=== PATIENT | male | born 1980 | race African-American/Black ===

== ENCOUNTER 2018-03-14 21:10 | Emergency (ER) | payer SELFPAY ==
--- OUTSIDE RECORDS SUMMARY | 2018-03-14 21:12 | XMS REPORT | Summary of Care ---
:1980 Author Name Solange Hidalgo M.A. Address Unavailable Unavailable , Care Team Providers Name Role Phone RITO PRYOR M.D. Unavailable Unavailable Solange Hidalgo M.A. Unavailable Unavailable Unavailable Unavailable Unavailable Functional Status Name Dates Details Functional status health issues are not documented Status: Name Dates Details Cognitive status health issues are not documented Status: Problems Name Dates Details Intracerebral hemorrhage (431, I61.9) Status: Active Essential (primary) hypertension (401.9, I10) Status: Active Diabetes mellitus (250.00, E11.9) Status: Active Medications Name Dates Details Lisinopril 20 MG Oral Tablet TAKE 1 TABLET TWICE DAILY. Quantity: 60 Refills: 1 RITO PRYOR M.D. Start : 28-Oct-2017 Active Carvedilol 25 MG Oral Tablet TAKE 1 TABLET Every twelve hours Quantity: 60 Refills: 1 RITO PRYOR M.D. Start : 28-Oct-2017 Active NovoLIN N ReliOn 100 UNIT/ML Subcutaneous Suspension USE DIRECTED. Refills: 0 Start : 28-Oct-2017 Active 10 ML Vial NIFEdipine ER 30 MG Oral Tablet Extended Release 24 Hour TAKE 1 TABLET DAILY. Quantity: 30 Refills: 1 RITO PRYOR M.D. Start : 08-Nov-2017 Active Nicotine 21 MG/24HR Transdermal Patch 24 Hour APPLY 1 PATCH DAILY DIRECTED. Quantity: 30 Refills: 0 RITO PRYOR M.D. Start : 08-Nov-2017 Active Allergies and Adverse Reactions Name Dates Details No Known Drug Allergies (Allergy) Status: Active Procedures Procedure Dates Details Procedures not documented Immunization Name Dates Details Immunizations not documented Social History Name Dates Details - Status: Name Dates Details Smoker. current status unknown Vital Signs Date Test Result Details No Known Vitals to report Results Date Description Value Details Results not documented Plan of Care Name Dates Details Planned Observations Planned Goals not documented Planned Encounters Appointment; TONY BANUELOS M.D. On: 29-Mar-2018 11:00 Interventions Provided Medication ChangesCarvedilol 25 MG Oral Tablet - RenewLisinopril 20 MG Oral Tablet - RenewNIFEdipine ER 30 MG Oral Tablet Extended Release 24 Hour - Renew Instructions Name Dates Details Instructions not documented Encounters Appointment; TONY BANUELOS M.D. On: 25-Oct-2017 10:00 Encounter Diagnosis: Problem not documented Appointment; CARMELA ROBERTSON M.D. On: 28-Oct-2017 13:45 Encounter Diagnosis: Problem not documented Appointment; DORIS SHORE M.D. On: 08-Nov-2017 10:00 Encounter Diagnosis: Problem not documented Appointment; DORIS SHORE M.D. On: 03-Jan-2018 10:30 Encounter Diagnosis: Problem not documented
[2018-03-14] MEDS ORDERED: PANTOPRAZOLE 40 MG INJ ONE (21:27)
[2018-03-14] MEDS ORDERED: NA CHLORIDE 0.9% 1,000 ML ONE ×2 (21:27→22:51)
[2018-03-14] MEDS ORDERED: ONDANSETRON 4 MG/2 ML VIAL ONE (21:27)
[2018-03-14 21:51] LABS: MCH 27.6 pg (27.0-35.0)
[2018-03-14 21:54] LABS: Absolute Lymphocytes (CBC) 5.4 K/uL (0.7-4.9); Absolute Monocytes 0.9 K/uL (0.1-1.3); Absolute Neutrophil 3.2 K/uL (1.8-8.0); Basophils % 0.4 % (0-1.3); Eosinophils % 1.6 % (0-4.4); Hematocrit 38.6 % (39.6-49.0); Lymphocytes % 55.6 % (15.3-44.8); MCV 81.3 fL (80-100); MPV 7.8 fL (7.6-11.3); RBC Red Blood Cell Count 4.75 M/uL (4.33-5.43)
[2018-03-14 22:02] LABS: Bicarbonate 26 mEq/L (21-31); Glucose Level 201 mg/dL (65-120); Lipase 24 U/L (22-51); Potassium 3.4 mEq/L (3.6-5.0); Sodium Level 139 mEq/L (135-145)
[2018-03-14 22:08] LABS: ALT/SGPT 21 IU/L (10-60); AST/SGOT 21 IU/L (10-42); Albumin 4.3 g/dL (3.2-5.5); Alkaline Phosphatase 49 IU/L (42-121); Amylase Level 66 U/L (28-100); BUN Blood Urea Nitrogen 17 mg/dL (6-20); Bilirubin Direct 0.1 mg/dL (0-0.2); Bilirubin Total 0.5 mg/dL (0.3-1.2); Protein, Total 7.5 g/dL (6.0-8.3)
[2018-03-14] MEDS ORDERED: ASPIRIN 81 MG CHEWABLE TABLET ONE (22:59)
[2018-03-14] MEDS ORDERED: PROMETHAZINE 25 MG/ML VIAL ONE (23:50)
[2018-03-14] MEDS ORDERED: POTASSIUM CL SA 10 MEQ TAB PO ONE (23:50)
[2018-03-14 23:58] LABS: Blood Morphology Comment NOTED (NOT SEEN); Burr Cells 1+; Platelet Estimate ADEQ; Urine White Blood Cell Casts OK
[2018-03-15 00:26] LABS: Urine Blood 1+ (NEG); Urine Glucose 1+ (NEG); Urine Protein 2+ (NEG); Urine Specific Gravity 1.025 (1.005-1.030)
--- NOTE | 2018-03-15 01:02 | EDPHYS ---
Physician Documentation [facility] Name: Corrie Diaz Age: 37 yrs Sex: Male : 1980 Arrival Date: 03/14/2018 Time: 21:12 Bed 18 Private MD: Out, of Town, Town; out of town, doctor ED Physician Brown Page HPI: 03/14 21:25 This 37 yrs old Black Male presents to ER via EMS with complaints of Vomiting. cp 21:25 The patient presents to the emergency department with nausea, that is severe, vomiting, cp that is continuous. Onset: The symptoms/episode began/occurred 2 hour(s) ago. Possible causes: flare up of diabetes. 21:25 Associated signs and symptoms: Pertinent negatives: anorexia, constipation, diarrhea, cp fever, GI bleeding. 21:25 Severity of symptoms: in the emergency department the symptoms are unchanged despite cp home interventions. Historical: - Allergies: 21:16 No Known Allergies; fc - Home Meds: 21:16 lisinopril 20mg - out of medicine daily [Active]; carvedilol oral oral 2 times per day fc [Active]; Nifedipine Oral [Active]; - PMHx: 21:16 Diabetes - NIDDM; Hypertension; CVA; fc - PSHx: 21:16 brain surg; fc - Immunization history:: Last tetanus immunization: unknown. - Social history:: Smoking status: Patient/guardian denies using tobacco. - Ebola Screening: : Patient negative for fever greater than or equal to 101.5 degrees Fahrenheit, and additional compatible Ebola Virus Disease symptoms Patient denies exposure to infectious person Patient denies travel to an Ebola-affected area in the 21 days before illness onset. ROS: 21:30 Constitutional: Positive for poor PO intake, Negative for body aches, chills, fever. cp 21:30 Eyes: Negative for injury, pain, redness, and discharge. cp 21:30 ENT: Negative for drainage from ear(s), ear pain, sore throat, difficulty swallowing, difficulty handling secretions. 21:30 Cardiovascular: Negative for chest pain, edema, palpitations. 21:30 Respiratory: Negative for cough, shortness of breath, wheezing. 21:30 Abdomen/GI: Positive for nausea, vomiting, anorexia, Negative for diarrhea, constipation, dysphagia, black/tarry stool, rectal bleeding. 21:30 Back: Negative for pain at rest, pain with movement. 21:30 : Negative for urinary symptoms, flank pain. 21:30 Skin: Negative for cellulitis, rash. 21:30 Neuro: Negative for altered mental status, dizziness, headache, weakness. 21:30 All other systems are negative. Exam: 21:33 ECG was reviewed by the Attending Physician. cp 21:35 Constitutional: The patient appears alert, awake, non-diaphoretic, non-toxic, well cp developed, well nourished, uncomfortable. 21:35 Head/Face: Normocephalic, atraumatic. cp 21:35 Eyes: Periorbital structures: appear normal, Pupils: equal, round, and reactive to light and accomodation, Extraocular movements: intact throughout, Conjunctiva: normal, no exudate, no injection, Lids and lashes: appear normal, bilaterally. 21:35 ENT: External ear(s): are unremarkable, Ear canal(s): are normal, clear, TM's: bulging, is not appreciated, bilaterally, dullness, bilaterally, erythema, is not appreciated, bilaterally, Nose: is normal, Mouth: Lips: moist, Oral mucosa: moist, Posterior pharynx: is normal, airway is patent, no erythema, no exudate, Voice: is normal. 21:35 Neck: ROM/movement: is normal, is supple, without pain, no range of motions limitations, no meningismus, no nuchal rigidity, Lymph nodes: no appreciated lymphadenopathy. 21:35 Chest/axilla: Inspection: normal, Palpation: is normal, no crepitus, no tenderness. 21:35 Cardiovascular: Rate: normal, Rhythm: regular, Heart sounds: murmur, not appreciated, rub, not appreciated, gallop, not appreciated, Edema: is not appreciated, JVD: is not appreciated. 21:35 Respiratory: the patient does not display signs of respiratory distress, Respirations: normal, no use of accessory muscles, no retractions, no splinting, no tachypnea, labored breathing, is not present, Breath sounds: are clear throughout, no decreased breath sounds, no stridor, no wheezing. 21:35 Abdomen/GI: Inspection: abdomen appears normal, Bowel sounds: active, all quadrants, Palpation: soft, in all quadrants, mild abdominal tenderness, in the epigastric area, rebound tenderness, is not appreciated, voluntary guarding, is not appreciated, involuntary guarding, is not appreciated. 21:35 Back: pain, is absent, ROM is normal. 21:35 Skin: cellulitis, is not appreciated, no rash present. 21:35 Neuro: Orientation: to person, place \T\ time. Mentation: lucid, able to follow commands, Cerebellar function: Romberg testing is negative, normal finger to nose testing, Motor: moves all fours, strength is normal, Sensation: no obvious gross deficits. Vital Signs: 21:06 BP 169 / 81; Pulse 75; Resp 18; Temp 98.5(O); Pulse Ox 100% on R/A; Weight 122.02 kg fc (R); Height 6 ft. 3 in. (190.50 cm) (R); Pain 0/10; 22:31 BP 164 / 90; Pulse 56; Resp 16 S; Pulse Ox 100% on R/A; Pain 0/10; jd3 23:57 BP 167 / 101; Pulse 74; Resp 18 S; Pulse Ox 99% on R/A; Pain 0/10; jd3 03/15 01:02 BP 148 / 99; Pulse 63; Resp 17 S; Pulse Ox 100% on R/A; Pain 0/10; jd3 03/14 21:06 Body Mass Index 33.62 (122.02 kg, 190.50 cm) fc MDM: 03/14 21:13 Patient medically screened. cp 22:00 Differential diagnosis: gastritis, pancreatitis, diverticulitis, viral gastroenteritis, cp gastroenteritis, CVA, hypertensive emergency. 03/15 01:00 Data reviewed: vital signs, nurses notes, lab test result(s), EKG, radiologic studies, cp CT scan, and as a result, I will discharge patient. 01:00 Test interpretation: by ED physician or midlevel provider: ECG. Counseling: I had a cp detailed discussion with the patient and/or guardian regarding: the historical points, exam findings, and any diagnostic results supporting the discharge/admit diagnosis, lab results, radiology results, the need for outpatient follow up, a family practitioner, to return to the emergency department if symptoms worsen or persist or if there are any questions or concerns that arise at home. Response to treatment: the patient's symptoms have markedly improved after treatment, VS noted, blood pressure improved, vomiting resolved. Will discharge to home for continued monitoring. 03/14 21:22 Order name: Amylase, Serum; Complete Time: 22:48 03/14 21:22 Order name: Basic Metabolic Panel; Complete Time: 22:48 03/14 22:04 Interpretation: Normal except: K 3.4; GLUC 201. 03/14 21:22 Order name: CBC with Diff; Complete Time: 00:29 03/14 22:48 Interpretation: Normal except: HGB 13.1; HCT 38.6; ROSARIO% 33.4; LYM% 55.6; LYMA 5.4. 03/14 21:22 Order name: Creatinine for Radiology; Complete Time: 22:04 03/14 21:22 Order name: Hepatic Function; Complete Time: 22:48 03/14 21:22 Order name: Lipase; Complete Time: 22:48 03/14 21:22 Order name: Urine Microscopic Only 03/14 21:22 Order name: Ketone, Serum; Complete Time: 22:48 03/14 21:22 Order name: Troponin I; Complete Time: 22:24 03/14 22:24 Interpretation: TROP < 0.03; Reviewed. 03/14 21:44 Order name: CT Head Brain wo Cont 03/14 21:56 Order name: CBC Smear Scan; Complete Time: 00:29 [facility] 03/14 23:37 Order name: Urine Dipstick--Ancillary (enter results); Complete Time: 00:29 2 03/15 00:29 Interpretation: Normal except: UBLD 1+; UPROT 2+. 03/15 01:12 Order name: Urine Culture [facility] 03/14 21:22 Order name: IV Saline Lock; Complete Time: 21:43 03/14 21:22 Order name: Labs collected and sent; Complete Time: 21:43 03/14 21:22 Order name: Urine Dipstick-Ancillary (obtain specimen); Complete Time: 23:46 03/14 21:22 Order name: EKG; Complete Time: 21:33 03/14 21:22 Order name: EKG - Nurse/Tech; Complete Time: 21:42 03/14 22:56 Order name: PO challenge; Complete Time: 23:05 03/15 00:30 Order name: PO challenge; Complete Time: 00:40 cp EC/18 21:33 Rate is 61 beats/min. Rhythm is regular. UT interval is normal. QRS interval is cp prolonged at 110 msec. QT interval is normal. No ST changes noted. Interpreted by me. Reviewed by me. Administered Medications: 21:42 Drug: Zofran 4 mg Route: IVP; Site: left antecubital; jd3 23:46 Follow up: Response: No adverse reaction jd3 21:42 Drug: ProTONIX 40 mg Route: IVP; Site: left antecubital; jd3 23:46 Follow up: Response: No adverse reaction jd3 21:43 Drug: NS 0.9% 1000 ml Route: IV; Rate: 1 bolus; Site: left antecubital; jd3 23:45 Follow up: Response: No adverse reaction; IV Status: Completed infusion; IV Intake: jd3 1000ml 22:55 Drug: NS 0.9% 1000 ml Route: IV; Rate: 125 ml/hr; Site: left antecubital; jd3 03/15 01:21 Follow up: Response: No adverse reaction; IV Status: Order to discontinue infusion; IV jd3 Intake: 700ml 03/14 23:05 Drug: Aspirin Chewable Tablet 81 mg Route: PO; jd3 23:57 Follow up: Response: No adverse reaction jd3 23:57 Drug: Potassium Chloride 20 mEq Route: PO; jd3 03/15 00:37 Follow up: Response: No adverse reaction jd3 03/14 23:57 Drug: Phenergan 25 mg Route: IVP; Site: left antecubital; jd3 03/15 00:37 Follow up: Response: No adverse reaction jd3 Disposition: 03/15/18 01:01 Discharged to Home. Impression: Nausea and vomiting, Hypertensive heart disease. - Condition is Stable. - Discharge Instructions: Hypertension, Nausea and Vomiting, How to Take Your Blood Pressure, Spbl-ut-Unap, Managing Your High Blood Pressure. - Prescriptions for Protonix 40 mg Oral Tablet, Delayed Release (E.C.) - take 1 tablet by ORAL route once daily for 7 days; 7 tablet. promethazine 25 mg Oral Tablet - take 1 tablet by ORAL route every 6 hours As needed; 20 tablet. - Medication Reconciliation Form, Thank You Letter, Antibiotic Education, Prescription Opioid Use form. Addendum: 03/16/2018 07:59 Co-signature as Attending Physician, Brown Page MD Available for consultation at p s1 all times.. Signatures: Dispatcher [employer] Maryuri Solis RN RN Drew Greenfield PA PA cp Davies, Jonathon, RN RN Brown Constantino MD MD ps1 Corrections: (The following items were deleted from the chart) 03/15 01:21 01:01 03/15/2018 01:01 Discharged to Home. Impression: Nausea and vomiting; jd3 Hypertensive heart disease. Condition is Stable. Forms are Medication Reconciliation Form, Thank You Letter, Antibiotic Education, Prescription Opioid Use. cp
--- NOTE | 2018-03-15 01:02 | ER ---
Nurse's Notes [facility] Name: Corrie Diaz Age: 37 yrs Sex: Male : 1980 Arrival Date: 03/14/2018 Time: 21:12 Bed 18 Private MD: Out, of Town, Town; out of town, doctor Diagnosis: Nausea and vomiting;Hypertensive heart disease Presentation: 03/14 21:06 Presenting complaint: Patient states: that he was sitting down at home and became very fc dizzy. He then started to have nausea, vomiting and high blood pressure. EMS vitals 194/119, heart rate 74. Transition of care: patient was not received from another setting of care. Onset of symptoms was March 14, 2018. Risk Assessment: Do you want to hurt yourself or someone else? Patient reports no desire to harm self or others. Initial Sepsis Screen: Does the patient meet any 2 criteria? No. Patient's initial sepsis screen is negative. Does the patient have a suspected source of infection? No. Patient's initial sepsis screen is negative. Care prior to arrival: Medication(s) given: Phenergan, 12.5 mg, IV initiated. 20 GA, in the left antecubital area, Glucose check: 203. 21:06 Method Of Arrival: EMS: [facility] 21:06 Acuity: KASHIF 3 fc Historical: - Allergies: 21:16 No Known Allergies; fc - Home Meds: 21:16 lisinopril 20mg - out of medicine daily [Active]; carvedilol oral oral 2 times per day fc [Active]; Nifedipine Oral [Active]; - PMHx: 21:16 Diabetes - NIDDM; Hypertension; CVA; fc - PSHx: 21:16 brain surg; fc - Immunization history:: Last tetanus immunization: unknown. - Social history:: Smoking status: Patient/guardian denies using tobacco. - Ebola Screening: : Patient negative for fever greater than or equal to 101.5 degrees Fahrenheit, and additional compatible Ebola Virus Disease symptoms Patient denies exposure to infectious person Patient denies travel to an Ebola-affected area in the 21 days before illness onset. Screenin:15 Abuse screen: Denies threats or abuse. Nutritional screening: No deficits noted. fc Tuberculosis screening: No symptoms or risk factors identified. Fall Risk None identified. Assessment: 21:12 General: Appears uncomfortable, Behavior is cooperative. Pain: Denies pain. Neuro: jd3 Level of Consciousness is awake, alert, obeys commands, Oriented to person, place, time, situation, Appropriate for age Speech is normal, Facial symmetry appears normal, Pupils are PERRLA, Intact Reports dizziness. Cardiovascular: Heart tones S1 S2 present Capillary refill < 3 seconds Patient's skin is warm and dry. Respiratory: Airway is patent Respiratory effort is even, unlabored, Respiratory pattern is regular, symmetrical, Breath sounds are clear bilaterally. GI: Abdomen is round Bowel sounds present X 4 quads. Abd is soft and non tender X 4 quads. Reports nausea, vomiting. : No signs and/or symptoms were reported regarding the genitourinary system. EENT: No signs and/or symptoms were reported regarding the EENT system. Derm: Skin is intact, Skin is dry, Skin is normal, Skin temperature is warm. Musculoskeletal: Circulation, motion, and sensation intact. Range of motion: intact in all extremities. 22:31 Reassessment: Patient appears in no apparent distress at this time. Patient and/or jd3 family updated on plan of care and expected duration. Pain level reassessed. Patient is alert, oriented x 3, equal unlabored respirations, skin warm/dry/pink. 23:58 Reassessment: Patient appears in no apparent distress at this time. Patient and/or jd3 family updated on plan of care and expected duration. Pain level reassessed. Patient is alert, oriented x 3, equal unlabored respirations, skin warm/dry/pink. Patient denies pain at this time. 03/15 01:03 Reassessment: Patient appears in no apparent distress at this time. Patient and/or jd3 family updated on plan of care and expected duration. Pain level reassessed. Patient is alert, oriented x 3, equal unlabored respirations, skin warm/dry/pink. Patient denies pain at this time. Patient states feeling better. 01:12 Reassessment: Patient appears in no apparent distress at this time. Patient and/or jd3 family updated on plan of care and expected duration. Pain level reassessed. Patient is alert, oriented x 3, equal unlabored respirations, skin warm/dry/pink. pt reported understanding of discharge instructions, pt assisted to car by wheelchair. Patient denies pain at this time. Patient states feeling better. Vital Signs: 03/14 21:06 BP 169 / 81; Pulse 75; Resp 18; Temp 98.5(O); Pulse Ox 100% on R/A; Weight 122.02 kg fc (R); Height 6 ft. 3 in. (190.50 cm) (R); Pain 0/10; 22:31 BP 164 / 90; Pulse 56; Resp 16 S; Pulse Ox 100% on R/A; Pain 0/10; jd3 23:57 BP 167 / 101; Pulse 74; Resp 18 S; Pulse Ox 99% on R/A; Pain 0/10; jd3 03/15 01:02 BP 148 / 99; Pulse 63; Resp 17 S; Pulse Ox 100% on R/A; Pain 0/10; jd3 03/14 21:06 Body Mass Index 33.62 (122.02 kg, 190.50 cm) ED Course: 03/14 21:06 Arm band placed on Patient placed in an exam room, on a stretcher. fc 21:12 Patient arrived in ED. am2 21:12 Out, of Town is Private Physician. am2 21:12 out of [facility], doctor is Private Physician. am2 21:[address], DELORES is Primary Nurse. jd3 21:12 Drew Lima PA is PHCP. cp 21:13 Brown Page MD is Attending Physician. cp 21:14 Triage completed. fc 21:15 Patient has correct armband on for positive identification. Bed in low position. Call fc light in reach. Side rails up X2. program aide on. Pulse ox on. NIBP on. 21:15 No provider procedures requiring assistance completed. Maintain EMS IV. Dressing fc intact. Good blood return noted. Site clean \T\ dry. Gauge \T\ site: 20 gauge to left a/c. 21:43 Inserted saline lock: 20 gauge in left antecubital area, using aseptic technique. Blood jd3 collected. 22:16 CT completed. Patient moved to CT via wheelchair. Patient moved back from CT. cw1 22:24 CT Head Brain wo Cont In Process Unspecified. EDMS 03/15 01:12 IV discontinued, intact, bleeding controlled, No redness/swelling at site. Pressure jd3 dressing applied. Administered Medications: 03/14 21:42 Drug: Zofran 4 mg Route: IVP; Site: left antecubital; jd3 23:46 Follow up: Response: No adverse reaction jd3 21:42 Drug: ProTONIX 40 mg Route: IVP; Site: left antecubital; jd3 23:46 Follow up: Response: No adverse reaction jd3 21:43 Drug: NS 0.9% 1000 ml Route: IV; Rate: 1 bolus; Site: left antecubital; jd3 23:45 Follow up: Response: No adverse reaction; IV Status: Completed infusion; IV Intake: jd3 1000ml 22:55 Drug: NS 0.9% 1000 ml Route: IV; Rate: 125 ml/hr; Site: left antecubital; jd3 03/15 01:21 Follow up: Response: No adverse reaction; IV Status: Order to discontinue infusion; IV jd3 Intake: 700ml 03/14 23:05 Drug: Aspirin Chewable Tablet 81 mg Route: PO; jd3 23:57 Follow up: Response: No adverse reaction jd3 23:57 Drug: Potassium Chloride 20 mEq Route: PO; jd3 03/15 00:37 Follow up: Response: No adverse reaction jd3 03/14 23:57 Drug: Phenergan 25 mg Route: IVP; Site: left antecubital; jd3 03/15 00:37 Follow up: Response: No adverse reaction jd3 Intake: 03/14 23:45 IV: 1000ml; Total: 1000ml. jd3 03/15 01:21 IV: 700ml; Total: 1700ml. jd3 Outcome: 01:01 Discharge ordered by . cp 01:12 Discharged to home ambulatory, with family. jd3 01:12 Condition: stable 01:12 Discharge instructions given to patient, family, Instructed on discharge instructions, follow up and referral plans. medication usage, Demonstrated understanding of instructions, follow-up care, medications, Prescriptions given X 2. 01:21 Patient left the ED. jd3 Signatures: Dispatcher [employer] EDMS Maryuri Laird RN RN Randee Pathak cw1 Drew Lima PA PA cp Moreno, Amanda am2 Davies, Jonathon, RN RN jd3 Corrections: (The following items were deleted from the chart) 01:20 01:12 Reassessment: Patient appears in no apparent distress at this time. Patient jd3 and/or family updated on plan of care and expected duration. Pain level reassessed. Patient is alert, oriented x 3, equal unlabored respirations, skin warm/dry/pink. pt reported understanding of discharge instructions, even and steady gait upon discharge. Patient denies pain at this time. Patient states feeling better. jd3
[2018-03-15 01:10] LABS: Urine Bacteria <20 /HPF (NONE SEEN); Urine RBC <5 /HPF (NONE SEEN)
[2018-03-15 01:11] LABS: Urine Culture Reflex Order REFLEXED
--- NOTE | 2018-03-15 08:18 | RAD REPORT ---
EXAM DESCRIPTION: CT - Head Brain Wo Cont - 03/15/2018 5:23 am CLINICAL HISTORY: Hypertension, dizziness, prior CVA, prior intracranial surgery A preliminary written report was provided at the time of the study, and the report was reviewed prio r to final dictation. COMPARISON: CT head September 2017 TECHNIQUE: Axial 5 mm thick images of the head were obtained without IV contrast. All CT scans are performed using dose optimization technique as appropriate and may include automated exposure control or mA/KV adjustment according to patient size. FINDINGS: No intracranial hemorrhage changes are present. Punctate hyperdensity in the left lentifor m nucleus is believed to be calcium and not blood. This is similar to the September study. No acute cor tical based infarction. No mass effect, edema or shift of midline structures. The intraparenchymal an d intraventricular hemorrhage seen in September has resolved with no large encephalomalacia or defects seen. Asymmetry of the ventricles is believed to be normal variant. No remnant hydrocephalus. Patchy areas of decreased white matter attenuation noted. Given the hypertension history, a reversible encep halopathy process is possible. Patient could have or early onset chronic ischemic change. No abnormal extra-axial fluid collections. Mastoid air cells and visualized portions of the paranasal sinuses are clear. No acute bony findings. IMPRESSION: No hemorrhage, mass or focal acute intracranial finding. Patchy white matter attenuation abnormality noted. This could be early onset chronic ischemic change or a reversible encephalopathy pattern. If the patient has continued unexplained symptoms or neurologic deficits, followup MR imaging could b e obtained.
--- NOTE | 2018-03-15 09:29 | EKG ---
Test Date: 2018-03-14 Test Time: 21:27:04 Welt Drawer: BOYD MEASUREMENT RESULTS: Intervals: Rate: 61 RI: 162 QRSD: 110 QT: 408 QTc: 410 [place]: P: 26 RI: 162 QRS: 56 T: 60 INTERPRETIVE STATEMENTS: Normal sinus rhythm Normal ECG Compared to ECG 09/28/2017 07:45:51 Sinus arrhythmia no longer present Electronically Signed On 03-15-18 09:27:48 CDT by Nolan Arana
== END 2018-03-15 01:21 | disposition home or self-care (01) ==
LOC: ER 21:10
DX: I11.9 Hypertensive heart disease without heart failure (principal); I10 Essential (primary) hypertension; E11.9 Type 2 diabetes mellitus without complications; Z86.73 Personal history of transient ischemic attack (TIA), and cerebral infarction without residual deficits
CPT/HCPCS: 36415; 70450; 80048; 80076; 81003; 81015; 82010; 82150; 83690; 84484; 85025; 87086; 87088; 93005; 96361; 96374; 96375; 99285; C9113; J2405; J2550; J7030

== ENCOUNTER 2018-12-29 11:03 | Emergency (ER) | payer SELFPAY ==
--- OUTSIDE RECORDS SUMMARY | 2018-12-29 11:05 | XMS REPORT | Summary of Care ---
:1980 Author Name TONY BANUELOS M.D. Address Unavailable Unavailable , Care Team Providers Name Role Phone RITO PRYOR M.D. Unavailable Unavailable TONY BANUELOS M.D. Unavailable Unavailable Unavailable Unavailable Unavailable Functional Status [...] 1 TABLET TWICE DAILY. Quantity: 60 Refills: 0 TONY BANUELOS M.D. Start : 28-Oct-2017 Active Carvedilol 25 MG Oral Tablet TAKE 1 TABLET Every twelve hours Quantity: 60 Refills: 1 RITO PRYOR M.D. Start : 28-Oct-2017 Active NovoLIN N ReliOn 100 UNIT/ML Subcutaneous Suspension USE DIRECTED. Refills: 0 Start : 28-Oct-2017 Active 10 ML Vial NIFEdipine ER 30 MG Oral Tablet Extended Release 24 Hour TAKE 1 TABLET DAILY. Quantity: 30 Refills: 1 TONY BANUELOS M.D. Start : 08-Nov-2017 Active Nicotine 21 [...] Details Planned Observations Planned Goals not documented Interventions Provided Medication ChangesLisinopril 20 MG Oral Tablet - RenewNIFEdipine ER [...] 03-Jan-2018 10:30 Encounter Diagnosis: Problem not documented Appointment; TONY BANUELOS M.D. On: 11-Mar-2018 10:30 Encounter Diagnosis: Problem not documented Appointment; GEN SOLIS M.D. On: 12-Apr-2018 10:00 Encounter Diagnosis: Problem not documented [facility] On: 12-Apr-2018 11:30 Encounter Diagnosis: Problem not documented
--- NOTE | 2018-12-29 11:23 | RAD REPORT ---
EXAM DESCRIPTION: CT - Ct Stroke Brain Wo Cont - 12/29/2018 11:12 am CLINICAL HISTORY: Slurred speech, right facial weakness CLINICAL HISTORY: CT head February 2018 TECHNIQUE: Axial 5 millimeter thick images of the head were obtained without IV contrast. All CT scans are performed using dose optimization technique as appropriate and may include automated exposure control or mA/KV adjustment according to patient size. FINDINGS: A 2.5 centimeter intraparenchymal hematoma is present in the left cerebral hemisphere. The acute focal hemorrhage is in the posterior left basal ganglia and inferior posterior right frontal l obe. This is in proximity to the posterior limb internal capsule. No associated soft tissue mass. Hyp ertension history is unknown. There is a thin rim of edema in the surrounding parenchyma. There is so me localized mass effect. The patient is tilted in the gantry making it difficult to assess any midli ne shift. There is probably 2 mm of ljbj-gw-gmdsi shift at the level of the third ventricle. No intra ventricular component of hemorrhage. Punctate basal ganglia calcifications are present. No acute cortical based infarction. No other acute intracranial findings noted. No extra-axial fluid collections. Singleton matter-white matter differentiation is preserved. Visualized portions of the mastoid air cells, paranasal sinuses, and orbits are unremarkable. Findings telephoned to the referring physician 11:12 a.m. IMPRESSION: Approximately 2.5 centimeter acute intraparenchymal hematoma in the posterior left basal ganglia near the posterior limb internal capsule. There is localized mass effect and edema with an estimated 2 mm of qnuc-hw-[id number] midline shift at the third ventricle. Hypertension history for the patient is unknown. No underlying mass identifiable.
--- NOTE | 2018-12-29 11:25 | ER ---
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 Transition of care: patient was not received from another setting of care. An acute neurological deficit is present. Pre-hospital glucose is not applicable to this patient. Onset of symptoms was December 29, 2018. Risk Assessment: Do you want to hurt yourself or someone else? Patient reports no desire to harm self or others. Initial Sepsis Screen: Does the patient meet any 2 criteria? No. Patient's initial sepsis screen is negative. Does the patient have a suspected source of infection? No. Patient's initial sepsis screen is negative. Care prior to arrival: None. 11:03 Method Of Arrival: Wheelchair ss 11:03 Acuity: KASHIF 1 ss Triage Assessment: 11:03 The onset of the patients symptoms was December 29, 2018 at 10:30. ss 11:03 General: Appears in no apparent distress. uncomfortable, Behavior is cooperative, hj appropriate for age, anxious. Pain: Denies pain. Neuro: Level of Consciousness is awake, alert, obeys commands, Oriented to person, place, time, situation, Appropriate for age Reports weakness. Stroke Activation: Symptom onset < 3 hours Physician: Stroke Attending; Name: ; Notified At: ; Arrived At: Physician: Chief Stroke Resident; Name: ; Notified At: ; Arrived At: Physician: Stroke Resident; Name: ; Notified At: ; Arrived At: Physician: ED Attending; Name: ; Notified At: ; Arrived At: Physician: ED Resident; Name: ; Notified At: ; Arrived At: Historical: - Allergies: 11:22 No Known Allergies; iw - PMHx: 11:18 CVA; Diabetes - NIDDM; Hypertension; iw - PSHx: 11:18 brain surg; iw - Immunization history:: Adult Immunizations unknown. - Social history:: Smoking status: unknown. - Family history:: not pertinent. - Ebola Screening: : Patient denies exposure to infectious person Patient denies travel to an Ebola-affected area in the 21 days before illness onset. - Hospitalizations: : No recent hospitalization is reported. Screenin:16 Abuse screen: Denies threats or abuse. Denies injuries from another. Nutritional iw screening: No deficits noted. Tuberculosis screening: No symptoms or risk factors identified. Fall Risk IV access (20 points). Assessment: 11:03 Reassessment: [facility] stroke called. 11:08 Reassessment: Back in exam room [address] Mcneill, EKG, ED and phlebotomy staff at bedside. 11:14 T-PA (Activase) Screening: Contraindications: Intracranial hemorrhage and its risk iw factor and suspicion of subarachnoid bleed: Yes. 11:15 General: Appears in no apparent distress. Behavior is calm, cooperative. Pain: Denies iw pain. Neuro: Level of Consciousness is awake, alert, obeys commands, Oriented to person, place, time, situation. 11:24 Patient has been NPO before screening. The patient is alert, and able to follow iw commands. The patient exhibits slurred or garbled speech. The patient is exhibiting difficulty speaking. The patient does not exhibit difficulty understanding words. The patient is able to swallow own secretions with no drooling or need for suction. Patient tolerated one teaspoon of water. No drooling, immediate coughing, gurgling, or clearing of the throat was noted. The patient tolerated 90mL of water. No drooling, immediate coughing, gurgling, or clearing of the throat was noted. The patient passed the bedside swallow screening. Oral medications may be given as ordered. Contact Physician for further diet orders. Provider notified of bedside swallow screening results: Yves Mcneill MD. 11:29 Reassessment: BP 178/104- cardene drip increased to 7.5 mg/hr;. hj 11:29 VAN Scoring: Arm Drift: Minor drift iw 11:35 Reassessment: BP- 177/105; cardene up to 10 mg/hr; will continue to monitor;. hj 11:42 Reassessment: BP- 159/107; cardene drip up to 12.5 mg/hr; will continue to monitor;. hj 12:02 Reassessment: Patient appears in no apparent distress at this time. Patient and/or iw family updated on plan of care and expected duration. Pain level reassessed. Patient is alert, oriented x 3, equal unlabored respirations, skin warm/dry/pink. 12:08 Reassessment: unable to give report to nurse at this time, nurse doing post-mortem care iw at this time. 12:18 Reassessment: Patient appears in no apparent distress at this time. Patient and/or iw family updated on plan of care and expected duration. Pain level reassessed. Patient is alert, oriented x 3, equal unlabored respirations, skin warm/dry/pink. awaiting EMS transport, report given to Sang [facility]. Vital Signs: 11:14 BP 195 / 98; Pulse 89; Resp 18; Temp 97.4(TE); Pulse Ox 99% on R/A; Weight 106.59 kg; iw Height 6 ft. 3 in. (190.50 cm); Pain 0/10; 11:26 BP 178 / 104; Pulse 89; Resp 18; Pulse Ox 100% on R/A; Pain 0/10; iw 11:42 BP 159 / 107; Pulse 98; Resp 18; Pulse Ox 100% on R/A; hj 11:49 BP 154 / 96; Pulse 99; Resp 18; Pulse Ox 99% on R/A; hj 12:00 BP 152 / 94; Pulse 89; Resp 16; Pulse Ox 100% on R/A; Pain 0/10; iw 12:06 BP 145 / 93; Pulse 97; Resp 16 S; Pulse Ox 99% on R/A; iw 12:15 BP 144 / 85; Pulse 99; Resp 16 S; Pulse Ox 100% on R/A; Pain 0/10; iw 11:14 Body Mass Index 29.37 (106.59 kg, 190.50 cm) iw NIH Stroke Scale Scores: 11:18 NIHSS Score: 3 rn 11:29 NIHSS Score: 4 iw ED Course: 11:03 Arm band placed on right wrist. ss 11:05 Patient arrived in ED. iw 11:06 Yves Mcneill MD is Attending Physician. rn 11:10 Patient maintains SpO2 saturation greater than 95% on room air. ss 11:10 Patient has correct armband on for positive identification. Placed in gown. Bed in low ss position. Call light in reach. Side rails up X 1. conveyor monitor on. Pulse ox on. KEATONBP on. 11:12 CT Stroke Brain w/o Contrast In Process Unspecified. EDMS 11:12 initiated a transfer with Katy at the [facility] transfer center. eb 11:15 Initial lab(s) drawn, by ED staff, sent to lab. Inserted saline lock: 20 gauge in right iw antecubital area, using aseptic technique. Blood collected. 11:[address] Marie the neurologist animation producer for [facility] with Dr. Mcneill for eb patient transfer consultation. 11:20 Triage completed. ss 11:20 EKG done, by technical research scientist. reviewed by Yves Mcneill MD. sm3 11:20 Inserted saline lock: 20 gauge in left forearm, using aseptic technique. hj 11:24 Norma Ribeiro, DELORES is Primary Nurse. iw 11:27 Katy Martínez from [facility] called to decline the patient in transfer due to no bed eb capacity. 11:28 initiated a transfer with Tiffanie at the [facility] [place]. eb 11:37 connected the stroke doctor animation producer from [facility] with Dr. Mcneill for eb patient transfer consultation. 11:44 administrative approval given by Tiffanie Buchanan RN at the [facility] eb center/ patient has been accepted to [facility] Neuro ICU/ Arden Velazquez has accepted the patient in transfer/ report to be called to [phone]. 13:05 No provider procedures requiring assistance completed. Patient transferred, IV remains iw in place. Administered Medications: 11:20 Drug: niCARdipine (25mg/250ml) 5 mg/hr Route: IV; Rate: calculated rate; Site: right hj antecubital; 11:28 Follow up: Rate change 7.5 mg/hr iw 11:43 Follow up: IV Status: Infusion continued Point of Care Testing: Blood Glucose: 11:14 Blood Glucose: 185 mg/dL; Ranges: Outcome: 11:24 ER care complete, transfer ordered by MD. vinson 13:05 Transferred by ground EMS to other acute care facility: [facility] . Transfer iw form completed. X-rays sent w/ patient. 13:05 Condition: good 13:05 Discharge instructions given to patient, family, Instructed on the need for transfer, Demonstrated understanding of instructions. 13:06 Patient left the ED. iw NIH Stroke Scale - NIH Stroke Score Date: 12/29/2018 Time: 11:18 Total Score = 3 1a. Level of Consciousness (LOC) - 0(Alert) 1b. Level of Consciousness (LOC) (Year \T\ Age) - 0(Both) 1c. LOC Commands (Open \T\ Closes Eyes/Pipe Organ Installer) - 0(Both) 2. Best Gaze (Lateral Gaze Paresis) - 0(Normal) 3. Visual Field Loss - 0(No visual loss) 4. Facial Palsy - 1(Minor Paralysis) 5a. Left Arm: Motor (10-second hold) - 0(No drift) 5b. Right Arm: Motor (10-second hold) - 1(Drift) 6a. Left Leg: Motor (5-second hold - always test supine) - 0(No drift) 6b. Right Leg: Motor (5-second hold - always test supine) - 0(No drift) 7. Limb Ataxia (finger/nose \T\ heel/irwin - test with eyes open) - 0(Absent) 8. Sensory Loss (pinprick arms/legs/face) - 0(Normal) 9. Best Language: Aphasia (description/naming/reading) - 0(No aphasia) 10. Dysarthria (speech clarity - read or repeat words) - 1(Mild to Moderate) 11. Extinction and Inattention (visual/tactile/auditory/spatial/personal) - 0(No abnormality) Initials: rn NIH Stroke Scale - NIH Stroke Score Date: 12/29/2018 Time: 11:29 Total Score = 4 1a. Level of Consciousness (LOC) - 0(Alert) 1b. Level of Consciousness (LOC) (Year \T\ Age) - 0(Both) 1c. LOC Commands (Open \T\ Closes Eyes/Pipe Organ Installer) - 0(Both) 2. Best Gaze (Lateral Gaze Paresis) - 0(Normal) 3. Visual Field Loss - 0(No visual loss) 4. Facial Palsy - 1(Minor Paralysis) 5a. Left Arm: Motor (10-second hold) - 0(No drift) 5b. Right Arm: Motor (10-second hold) - 1(Drift) 6a. Left Leg: Motor (5-second hold - always test supine) - 0(No drift) 6b. Right Leg: Motor (5-second hold - always test supine) - 0(No drift) 7. Limb Ataxia (finger/nose \T\ heel/irwin - test with eyes open) - 0(Absent) 8. Sensory Loss (pinprick arms/legs/face) - 1(Mild to moderate loss) 9. Best Language: Aphasia (description/naming/reading) - 0(No aphasia) 10. Dysarthria (speech clarity - read or repeat words) - 1(Mild to Moderate) 11. Extinction and Inattention (visual/tactile/auditory/spatial/personal) - 0(No abnormality) Initials: iw Signatures: Dispatcher [employer] EDNorma Richey, RN RN Yves Mcneill MD MD rn Smirch, Shelby, RN RN Hadley Escoto RN DELORES Jere, Laxmi West 3 Corrections: (The following items were deleted from the chart) 11:22 11:08 Reassessment: Back in exam room [address] [facility] 11:23 11:14 BP 195 / 98; Pulse 89bpm; Resp 18bpm; Pulse Ox 99% RA; [facility] 11:28 11:26 Pulse 89bpm; Resp 18bpm; Pulse Ox 100% RA; [facility] 11:43 11:35 Reassessment: BP- 177/105; cardene up to 10 mg/hr [facility] 12:07 12:06 BP 145 / 93; Pulse 102bpm; Resp 16bpm; Spontaneous; Pulse Ox 99% RA; [facility]
--- NOTE | 2018-12-29 11:25 | EDPHYS ---
Physician Documentation [facility] Name: Corrie Diaz Age: 38 yrs Sex: Male : 1980 Arrival Date: 12/29/2018 Time: 11:05 Bed 2 Private MD: ED Physician Yves Mcneill HPI: 12/29 11:14 This 38 yrs old Black Male presents to ER via Unassigned with complaints of S/S of rn Possible Stroke. 11:14 The patient's problem is reported as weakness. The patient's problem is reported as rn weakness, in the right upper extremity. Onset: The symptoms/episode began/occurred 45 minute(s) ago. Duration: This was a single incident. The symptoms are alleviated by nothing. The symptoms are aggravated by nothing. Severity of symptoms: At their worst the symptoms were mild in the emergency department the symptoms are unchanged. The patient has experienced a previous episode. Reports at work, felt fine, sudden onset of slurred speech, stumbling, and RUE weakness.. Historical: - Allergies: 11:22 No Known Allergies; iw - PMHx: 11:18 CVA; Diabetes - NIDDM; Hypertension; iw - PSHx: 11:18 brain surg; iw - Immunization history:: Adult Immunizations unknown. - Social history:: Smoking status: unknown. - Family history:: not pertinent. - Ebola Screening: : Patient denies exposure to infectious person Patient denies travel to an Ebola-affected area in the 21 days before illness onset. - Hospitalizations: : No recent hospitalization is reported. ROS: 11:19 Constitutional: Negative for fever, chills, and weight loss, Eyes: Negative for injury, rn pain, redness, and discharge, Neck: Negative for injury, pain, and swelling, Cardiovascular: Negative for chest pain, palpitations, and edema, Respiratory: Negative for shortness of breath, cough, wheezing, and pleuritic chest pain, Abdomen/GI: Negative for abdominal pain, nausea, vomiting, diarrhea, and constipation, MS/Extremity: Negative for injury and deformity, Skin: Negative for injury, rash, and discoloration, Neuro: + right arm weakness and slurred speech Exam: 11:19 Radiologist reports: + acute 2.5 cm intraparenchymal bleed left side rn 11:19 Constitutional: This is a well developed, well nourished patient who is awake, alert, and in no acute distress. Head/Face: Normocephalic, atraumatic. Eyes: Pupils equal round and reactive to light, extra-ocular motions intact. Lids and lashes normal. Conjunctiva and sclera are non-icteric and not injected. Cornea within normal limits. Periorbital areas with no swelling, redness, or edema. ENT: MMM Cardiovascular: Regular rate and rhythm. No pulse deficits. Respiratory: Lungs have equal breath sounds bilaterally, clear to auscultation. No increased work of breathing, no retractions or nasal flaring. Abdomen/GI: soft, non-tender MS/ Extremity: Pulses equal, no cyanosis. Neurovascular intact. Full, normal range of motion. Equal circumference. Neuro: Awake and alert, GCS 15, oriented to person, place, time, and situation. + slurred speech, + UE weakness distal>proximal, normal sensation, wide based gait and requires assistance. Vital Signs: 11:14 BP 195 / 98; Pulse 89; Resp 18; Temp 97.4(TE); Pulse Ox 99% on R/A; Weight 106.59 kg; iw Height 6 ft. 3 in. (190.50 cm); Pain 0/10; 11:26 BP 178 / 104; Pulse 89; Resp 18; Pulse Ox 100% on R/A; Pain 0/10; iw 11:42 BP 159 / 107; Pulse 98; Resp 18; Pulse Ox 100% on R/A; hj 11:49 BP 154 / 96; Pulse 99; Resp 18; Pulse Ox 99% on R/A; hj 12:00 BP 152 / 94; Pulse 89; Resp 16; Pulse Ox 100% on R/A; Pain 0/10; iw 12:06 BP 145 / 93; Pulse 97; Resp 16 S; Pulse Ox 99% on R/A; iw 12:15 BP 144 / 85; Pulse 99; Resp 16 S; Pulse Ox 100% on R/A; Pain 0/10; iw 11:14 Body Mass Index 29.37 (106.59 kg, 190.50 cm) iw NIH Stroke Scale Scores: 11:18 NIHSS Score: 3 rn 11:29 NIHSS Score: 4 iw MDM: 11:06 Patient medically screened. rn 11:17 ED course: Accepted for transfer to [facility] neuro ICU for hemorrhagic stroke, started rn on cardene. Awake and alert. . 11:22 Differential diagnosis: CVA, TIA, metabolic disorder. Data reviewed: vital signs, rn nurses notes, radiologic studies, CT scan, and as a result, I will admit patient. Counseling: I had a detailed discussion with the patient and/or guardian regarding: the historical points, exam findings, and any diagnostic results supporting the discharge/admit diagnosis, radiology results, the need to transfer to another facility, for higher level of care, [facility] does not immediately have the required specialist. 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 . 12/29 11:14 Order name: Basic Metabolic Panel; Complete Time: : rn 12/29 11:14 Order name: CBC with Diff rn 12/29 11:14 Order name: Protime (+inr); Complete Time: rn 12/29 11:14 Order name: Ptt, Activated; Complete Time: rn 12/29 11:17 Order name: Urine Drug Screen rn 12/29 12:30 Order name: Urine Dipstick--Ancillary (enter results) eb 12/29 11:07 Order name: CT Stroke Brain w/o Contrast; Complete Time: 11: ss 12/29 11:14 Order name: EKG; Complete Time: 11:14 rn 12/29 11:14 Order name: Accucheck; Complete Time: 11:15 rn 12/29 11:14 Order name: Cardiac monitoring; Complete Time: : rn 12/29 11:14 Order name: EKG - Nurse/Tech; Complete Time: : rn 12/29 11:14 Order name: IV Saline Lock; Complete Time: : rn 12/29 11:14 Order name: Labs collected and sent; Complete Time: rn 12/29 11:14 Order name: NPO; Complete Time: rn 12/29 11:14 Order name: O2 Per Protocol; Complete Time: rn 12/29 11:14 Order name: O2 Sat Monitoring; Complete Time: : rn 12/29 11:14 Order name: Stroke Swallow Screen; Complete Time: : rn Administered Medications: 11:20 Drug: niCARdipine (25mg/250ml) 5 mg/hr Route: IV; Rate: calculated rate; Site: right antecubital; 11:28 Follow up: Rate change 7.5 mg/hr iw 11:43 Follow up: IV Status: Infusion continued Point of Care Testing: Blood Glucose: 11:14 Blood Glucose: 185 mg/dL; Ranges: Critical Glucose Levels:Adult <50 mg/dl or >400 mg/dl <40 mg/dl or >180 mg/dl Disposition: 12/29/18 11:24 Transfer ordered to [facility]. 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 - Reason for transfer: Higher level of care. - Accepting physician is Dr. Holguin. - Condition is Stable. - Problem is new. - Symptoms are unchanged. NIH Stroke Scale - NIH Stroke Score Date: 12/29/2018 Time: 11:18 Total Score = 3 1a. Level of Consciousness (LOC) - 0(Alert) 1b. Level of Consciousness (LOC) (Year \T\ Age) - 0(Both) 1c. LOC Commands (Open \T\ Closes Eyes/Milling Planer Operator) - 0(Both) 2. Best Gaze (Lateral Gaze Paresis) - 0(Normal) 3. Visual Field Loss - 0(No visual loss) 4. Facial Palsy - 1(Minor Paralysis) 5a. Left Arm: Motor (10-second hold) - 0(No drift) 5b. Right Arm: Motor (10-second hold) - 1(Drift) 6a. Left Leg: Motor (5-second hold - always test supine) - 0(No drift) 6b. Right Leg: Motor (5-second hold - always test supine) - 0(No drift) 7. Limb Ataxia (finger/nose \T\ heel/irwin - test with eyes open) - 0(Absent) 8. Sensory Loss (pinprick arms/legs/face) - 0(Normal) 9. Best Language: Aphasia (description/naming/reading) - 0(No aphasia) 10. Dysarthria (speech clarity - read or repeat words) - 1(Mild to Moderate) 11. Extinction and Inattention (visual/tactile/auditory/spatial/personal) - 0(No abnormality) Initials: delores NIH Stroke Scale - NIH Stroke Score Date: 12/29/2018 Time: 11:29 Total Score = 4 1a. Level of Consciousness (LOC) - 0(Alert) 1b. Level of Consciousness (LOC) (Year \T\ Age) - 0(Both) 1c. LOC Commands (Open \T\ Closes Eyes/Milling Planer Operator) - 0(Both) 2. Best Gaze (Lateral Gaze Paresis) - 0(Normal) 3. Visual Field Loss - 0(No visual loss) 4. Facial Palsy - 1(Minor Paralysis) 5a. Left Arm: Motor (10-second hold) - 0(No drift) 5b. Right Arm: Motor (10-second hold) - 1(Drift) 6a. Left Leg: Motor (5-second hold - always test supine) - 0(No drift) 6b. Right Leg: Motor (5-second hold - always test supine) - 0(No drift) 7. Limb Ataxia (finger/nose \T\ heel/irwin - test with eyes open) - 0(Absent) 8. Sensory Loss (pinprick arms/legs/face) - 1(Mild to moderate loss) 9. Best Language: Aphasia (description/naming/reading) - 0(No aphasia) 10. Dysarthria (speech clarity - read or repeat words) - 1(Mild to Moderate) 11. Extinction and Inattention (visual/tactile/auditory/spatial/personal) - 0(No abnormality) Initials: iw Signatures: Dispatcher [employer] Norma Boyce RN DELORES iw Yves Mcneill MD MD rn Smirch, Shelby, RN RN ss Joaquin, Henry, RN RN Corrections: (The following items were deleted from the chart) 13:06 11:24 12/29/2018 11:24 Transfer ordered to [facility]. 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 Reason for transfer: Higher level of care. Accepting physician is Dr. Holguin. Condition is Stable. Problem is new. Symptoms are unchanged. rn
[2018-12-29] MEDS ORDERED: Nicardipine/NS 25 MG/250 ML KIT IV ONE (11:27)
[2018-12-29 11:31] LABS: Protime INR 1.02
[2018-12-29 11:32] LABS: Absolute Lymphocytes (CBC) 2.1 K/uL (0.7-4.9); Absolute Monocytes 0.6 K/uL (0.1-1.3); Absolute Neutrophil 3.7 K/uL (1.8-8.0); Basophils % 0.4 % (0-1.3); Eosinophils % 1.6 % (0-4.4); Hematocrit 40.3 % (39.6-49.0); Lymphocytes % 31.9 % (15.3-44.8); RBC Red Blood Cell Count 4.84 M/uL (4.33-5.43)
[2018-12-29 11:37] LABS: BUN Blood Urea Nitrogen 16 mg/dL (7-18); Bicarbonate 28 mmol/L (21-32); Glucose Level 171 mg/dL (74-106); Potassium 3.8 mmol/L (3.5-5.1); Sodium Level 142 mmol/L (136-145)
[2018-12-29] MEDS ORDERED: NICARDIPINE HCL 25 MG in NA CHLORIDE 0.9% 240 ML IV PRN (12:31)
[2018-12-29 12:34] LABS: Urine Blood TRACE (NEG); Urine Glucose 2+ (NEG); Urine Protein 2+ (NEG); Urine Specific Gravity 1.025 (1.005-1.030); Urine pH 5.5 (5.0-7.0)
[2018-12-29 12:55] LABS: Barbiturates NEGATIVE (NEGATIVE); Benzodiazepines NEGATIVE (NEGATIVE); Cocaine NEGATIVE (NEGATIVE); METHAMPHETAM NEGATIVE (NEGATIVE); Methadone NEGATIVE (NEGATIVE); Opiates NEGATIVE (NEGATIVE); Phencyclidine NEGATIVE (NEGATIVE); THC Cannibis POSITIVE (NEGATIVE)
== END 2018-12-29 13:06 | disposition short-term general hospital (02) ==
LOC: ER 11:03
DX: I61.9 Nontraumatic intracerebral hemorrhage, unspecified (principal); I69.121 Dysphasia following nontraumatic intracerebral hemorrhage; I10 Essential (primary) hypertension; R29.703 NIHSS score 3
CPT/HCPCS: 36415; 70450; 80048; 80307; 81003; 82962; 85025; 85610; 85730; 93005; 96365; 99285

== ENCOUNTER 2019-02-08 10:36 | Emergency (ER) | payer SELFPAY ==
--- OUTSIDE RECORDS SUMMARY | 2019-02-08 10:40 | XMS REPORT | Summary of Care ---
:1980 Author Organization [facility] Address [facility] [place], [place] [address]- Encounter HQ Nellie_mars(FIN) [id number] Date(s): 12/29/18 - 12/31/[address] [address]- Discharge Disposition: Home or Self Care Attending Physician: Jose Elias Mcnulty MD Admitting Physician: Jose Elias Mcnulty MD Vital Signs Most recent to oldest [Reference 1 2 3 Range]: Height 187.96 cm (12/29/18 3:38 PM) Temperature Oral [96.4-99.1 DegF] 98.3 DegF 97.9 DegF 98 DegF (12/31/18 12:00 PM) (12/31/18 8:00 AM) (12/31/18 4:00 AM) Blood Pressure [90-140/60-90 160/92 mmHg 139/74 mmHg 150/72 mmHg mmHg] *HI* (12/31/18 8:00 AM) *HI* (12/31/18 12:00 PM) (12/31/18 4:00 AM) Respiratory Rate [14-20 BRMIN] 18 BRMIN 18 BRMIN 18 BRMIN (12/31/18 12:00 PM) (12/31/18 8:00 AM) (12/31/18 4:00 AM) Peripheral Pulse Rate [60-100 67 bpm 57 bpm 74 bpm bpm] (12/31/18 12:00 PM) *LOW* (12/31/18 4:00 AM) (12/31/18 8:00 AM) Weight 118 kg (12/29/18 3:38 PM) Body Mass Index 33.4 m2 (12/29/18 3:38 PM) Problem List Condition Effective Dates Status Health Status Informant Diabetes(Confirmed) Active Diabetes(Confirmed) Resolved Dysphagia(Confirmed) Active HTN (hypertension)(Confirmed) Active Allergies, Adverse Reactions, Alerts Substance Reaction Severity Status NKDA Active Medications acetaminophen 650 mg, 2 tab, Route: PO, Drug form: TAB, Q4H, Dosing Weight 127.4, kg, PRN Pain 1-3/Temp > 100.4F, Start date: 12/29/18 14:56:00 CDT, Duration: 30 day, Stop date: 01/28/19 14:55:00 CDT Notes: Do not exceed 4 gm/day. (Same as: Tylenol) Start Date: 12/29/18 Stop Date: 12/31/18 Status: DiscontinuedBD Normal Saline Flush 10 mL, Route: IVP, Drug Form: INJ, PRN, PRN Line Flush, Start date: 12/29/18 17: 45:00 CDT, Duration:30 day, Stop date: 01/28/19 17:44:00 CDT Notes: Same as: BD Posiflush Sterile Start Date: 12/29/18 Stop Date: 12/29/18 Status: Discontinuedcalcium carbonate 500 mg (200 mg elemental calcium) oral tablet 1,000 mg, 2 tab, Route: PO, Drug form: CHEWTAB, PRN, Dosing Weight 127.4, kg, PRN Abnormal Lab Result, FOR ICU USE ONLY, Start date: 12/29/18 15:15:00 CDT, Duration: 30 day, Stop date: 01/28/19 15:14:00 CDT Notes: (Same As: Tums)Calcium Carbonate 500 hs=380 mg elemental calcium Dose=_ mg calcium carbonate ( mg elemental calcium) Start Date: 12/29/18 Stop Date: 12/30/18 Status: Discontinuedcalcium carbonate 500 mg (200 mg elemental calcium) oral tablet 500 mg, 1 tab, Route: PO, Drug form: CHEWTAB, PRN, Dosing Weight 127.4, kg, PRN Abnormal Lab Result,FOR ICU USE ONLY, Start date: 12/29/18 15:15:00 CDT, Duration: 30 day, Stop date: 01/28/19 15:14:00 CDT Notes: (Same As: Tums)Calcium Carbonate 500 pp=239 mg elemental calcium Dose=_ mg calcium carbonate ( mg elemental calcium) Start Date: 12/29/18 Stop Date: 12/30/18 Status: Discontinuedcalcium gluconate 1 gm, 50 mL, Route: IVPB, Drug form: INJ, PRN, Dosing Weight 127.4, kg, PRN Abnormal Lab Result, Start date: 12/29/18 15:15:00 CDT, Duration: 30 day, Stop date: 01/28/19 15:14:00 CDT, FOR ICU USE ONLY Notes: WASTE: F/P - Sink; E - Municipal Trash Bin Start Date: 12/29/18 Stop Date: 12/30/18 Status: DiscontinuedCardene 40 mg in NS 200 mL (Titrate.) IV 40 mg 40 mg, 200 mL, Rate: Titrate, Start Dose: 5 mg/hr, Titration: 2.5 mg/hr every 15 minutes, Goal(s): SBP goal 100-150, Max Dose: 15 mg/hr, Route: IV, Dosing Weight 127.4 kg, Total Volume: 200, Start date: 12/29/18 15:14:00 CDT, Duration : 30 day, Stop da... Notes: Same as: CardeneConcentration: (0.2 mg /1 ml ) Start Date: 12/29/18 Stop Date: 12/30/18 Status: Discontinuedcarvedilol 12.5 mg oral tablet 12.5 mg=1 tab, PO, Q12H, # 60 tab, 0 Refill(s) Start Date: 12/31/18 Status: OrderedCoreg 12.5 mg, 1 tab, Route: PO, Drug form: TAB, Q12H, Dosing Weight 118, kg, Start date: 12/29/18 21:00:00 CDT, Duration: 30 day, Stop date: 01/28/19 9:00:00 CDT Notes: Give with food. (Same As: Coreg) Start Date: 12/29/18 Stop Date: 12/31/18 Status: DiscontinuedDextrose 50% Syringe 25 gm, 50 mL, Route: IVP, Drug Form: INJ, Dosing Weight 118, kg, PRN, PRN Blood Glucose Results, Start date: 12/30/18 23:44:00 CDT, Duration: 30 day, Stop date : 01/29/19 23:43:00 CDT Start Date: 12/30/18 Stop Date: 12/31/18 Status: DiscontinuedDextrose 50% Syringe 12.5 gm, 25 mL, Route: IVP, Drug Form: INJ, Dosing Weight 118, kg, PRN, PRN Blood Glucose Results, Start date: 12/30/18 23:44:00 CDT, Duration: 30 day, Stop date: 01/29/19 23:43:00 CDT Start Date: 12/30/18 Stop Date: 12/31/18 Status: DiscontinuedDextrose 50% Syringe 25 gm, 50 mL, Route: IVP, Drug Form: INJ, Dosing Weight 118, kg, PRN, PRN Blood Glucose Results, Start date: 12/29/18 16:04:00 CDT, Duration: 30 day, Stop date : 01/28/19 16:03:00 CDT Start Date: 12/29/18 Stop Date: 12/30/18 Status: DiscontinuedDextrose 50% Syringe 12.5 gm, 25 mL, Route: IVP, Drug Form: INJ, Dosing Weight 118, kg, PRN, PRN Blood Glucose Results, Start date: 12/29/18 16:04:00 CDT, Duration: 30 day, Stop date: 01/28/19 16:03:00 CDT Start Date: 12/29/18 Stop Date: 12/30/18 Status: Discontinueddocusate 100 mg, 1 cap, Route: PO, Drug form: CAP, Q12H, Dosing Weight 118, kg, PRN as needed for constipation, Start date: 12/29/18 21:00:00 CDT, Duration: 30 day, Stop date: 01/28/19 9:00:00 CDT Notes: (Same as: Colace) (Do Not Crush) Start Date: 12/29/18 Stop Date: 12/31/18 Status: Discontinuedenalapril 0.625 mg, 0.5 mL, Route: IVP, Drug form: INJ, Q6H, Dosing Weight 127.4, kg, PRN Hypertension, For SBP > 140mmHg, Start date: 12/29/18 14:56:00 CDT, Duration : 30 day, Stop date: 01/28/19 14:55:00 CDT Notes: (Same as: Vasotec-IV) Start Date: 12/29/18 Stop Date: 12/31/18 Status: Discontinuedglucagon 1 mg, Route: IM, Drug form: PDR/INJ, PRN, Dosing Weight 118, kg, PRN Blood Glucose Results, Start date: 12/30/18 23:44:00 CDT, Duration: 30 day, Stop date : 01/29/19 23:43:00 CDT Start Date: 12/30/18 Stop Date: 12/31/18 Status: Discontinuedglucagon 1 mg, Route: IM, Drug form: PDR/INJ, PRN, Dosing Weight 118, kg, PRN Blood Glucose Results, Start date: 12/29/18 16:04:00 CDT, Duration: 30 day, Stop date : 01/28/19 16:03:00 CDT Start Date: 12/29/18 Stop Date: 12/30/18 Status: Discontinuedheparin 5,000 unit, 1 mL, Route: SUB-Q, Drug form: INJ, Q8H, Dosing Weight 118, kg, Start date: 12/30/18 0:00:00 CDT, Duration: 30 day, Stop date: 01/28/19 16:00: 00 CDT Notes: porcine heparin Start Date: 12/30/18 Stop Date: 12/31/18 Status: Discontinuedhydrochlorothiazide-lisinopril 12.5 mg-20 mg oral tablet 1 tab, Route: PO, Drug Form: TAB, Dosing Weight 118, kg, Daily, Start date: 03/15 9:00:00 CDT, Duration: 30 day, Stop date: 01/29/19 9:00:00 CDT Start Date: 12/31/18 Stop Date: 12/30/18 Status: Canceledinsulin isophane-NPH 5 unit, 0.05 mL, Route: SUB-Q, Drug form: INJ, TID-Before Meals, Dosing Weight 118, kg, Start date: 12/30/18 8:54:00 CDT, Duration: 30 day, Stop date: 7:30:00 CDT Notes: Roll in palms of hands gently; Do not shake vigorously. (Same as: Humulin N)Do not hold insulin without contacting prescriberWASTE: F/P - Black; E - Municipal Trash Bin Stable for 28 days at room temperatureExpires in ____ _ days from Date Start Date: 12/30/18 Stop Date: 12/31/18 Status: Discontinuedinsulin lispro 8 unit, 0.08 mL, Route: SUB-Q, Drug form: SOLN, TID-Before Meals, Dosing Weight 118, kg, PRN Blood Glucose Results, Start date: 12/30/18 23:44:00 CDT, Duration : 30 day, Stop date: 01/29/19 23:43:00 CDT Notes: (Same as: Humalog ) Roll in palms of hands gently; Do not shake ` vigorously. "Single PatientUse Only " WASTE: F/P - Black; E - Municipal Trash Bin Stable for 28 days at room temperature.Expires in days from Date Start Date: 12/30/18 Stop Date: 12/31/18 Status: Discontinuedinsulin lispro 6 unit, 0.06 mL, Route: SUB-Q, Drug form: SOLN, TID-Before Meals, Dosing Weight 118, kg, PRN Blood Glucose Results, Start date: 12/30/18 23:44:00 CDT, Duration : 30 day, Stop date: 01/29/19 23:43:00 CDT Notes: (Same as: Humalog ) Roll in palms of hands gently; Do not shake ` vigorously. "Single PatientUse Only " WASTE: F/P - Black; E - Municipal Trash Bin Stable for 28 days at room temperature.Expires in days from Date Start Date: 12/30/18 Stop Date: 12/31/18 Status: Discontinuedinsulin lispro 4 unit, 0.04 mL, Route: SUB-Q, Drug form: SOLN, TID-Before Meals, Dosing Weight 118, kg, PRN Blood Glucose Results, Start date: 12/30/18 23:44:00 CDT, Duration : 30 day, Stop date: 01/29/19 23:43:00 CDT Notes: (Same as: Humalog ) Roll in palms of hands gently; Do not shake ` vigorously. "Single PatientUse Only " WASTE: F/P - Black; E - Municipal Trash Bin Stable for 28 days at room temperature.Expires in days from Date Start Date: 12/30/18 Stop Date: 12/31/18 Status: Discontinuedinsulin lispro 2 unit, 0.02 mL, Route: SUB-Q, Drug form: SOLN, TID-Before Meals, Dosing Weight 118, kg, PRN Blood Glucose Results, Start date: 12/30/18 23:44:00 CDT, Duration : 30 day, Stop date: 01/29/19 23:43:00 CDT Notes: (Same as: Humalog ) Roll in palms of hands gently; Do not shake ` vigorously. "Single PatientUse Only " WASTE: F/P - Black; E - Municipal Trash Bin Stable for 28 days at room temperature.Expires in days from Date Start Date: 12/30/18 Stop Date: 12/31/18 Status: Discontinuedinsulin lispro 2 unit, 0.02 mL, Route: SUB-Q, Drug form: SOLN, Bedtime, Dosing Weight 118, kg, PRN Blood Glucose Results, Start date: 12/30/18 23:44:00 CDT, Duration: 30 day, Stop date: 01/29/19 23:43:00 CDT Notes: (Same as: Humalog ) Roll in palms of hands gently; Do not shake ` vigorously. "Single PatientUse Only " WASTE: F/P - Black; E - Municipal Trash Bin Stable for 28 days at room temperature.Expires in days from Date Start Date: 12/30/18 Stop Date: 12/31/18 Status: Discontinuedinsulin lispro 3 unit, 0.03 mL, Route: SUB-Q, Drug form: SOLN, Bedtime, Dosing Weight 118, kg, PRN Blood Glucose Results, Start date: 12/30/18 23:44:00 CDT, Duration: 30 day, Stop date: 01/29/19 23:43:00 CDT Notes: (Same as: Humalog ) Roll in palms of hands gently; Do not shake ` vigorously. "Single PatientUse Only " WASTE: F/P - Black; E - Municipal Trash Bin Stable for 28 days at room temperature.Expires in days from Date Start Date: 12/30/18 Stop Date: 12/31/18 Status: Discontinuedinsulin lispro 4 unit, 0.04 mL, Route: SUB-Q, Drug form: SOLN, Bedtime, Dosing Weight 118, kg, PRN Blood Glucose Results, Start date: 12/30/18 23:44:00 CDT, Duration: 30 day, Stop date: 01/29/19 23:43:00 CDT Notes: (Same as: Humalog ) Roll in palms of hands gently; Do not shake ` vigorously. "Single PatientUse Only " WASTE: F/P - Black; E - Municipal Trash Bin Stable for 28 days at room temperature.Expires in days from Date Start Date: 12/30/18 Stop Date: 12/31/18 Status: Discontinuedinsulin lispro 1 unit, 0.01 mL, Route: SUB-Q, Drug form: SOLN, Bedtime, Dosing Weight 118, kg, PRN Blood Glucose Results, Start date: 12/30/18 23:44:00 CDT, Duration: 30 day, Stop date: 01/29/19 23:43:00 CDT Notes: (Same as: Humalog ) Roll in palms of hands gently; Do not shake ` vigorously. "Single PatientUse Only " WASTE: F/P - Black; E - Municipal Trash Bin Stable for 28 days at room temperature.Expires in days from Date Start Date: 12/30/18 Stop Date: 12/31/18 Status: Discontinuedinsulin lispro 10 unit, 0.1 mL, Route: SUB-Q, Drug form: SOLN, TID-Before Meals, Dosing Weight 118, kg, PRN Blood Glucose Results, Start date: 12/30/18 23:44:00 CDT, Duration : 30 day, Stop date: 01/29/19 23:43:00 CDT Notes: (Same as: Humalog ) Roll in palms of hands gently; Do not shake ` vigorously. "Single PatientUse Only " WASTE: F/P - Black; E - Municipal Trash Bin Stable for 28 days at room temperature.Expires in days from Date Start Date: 12/30/18 Stop Date: 12/31/18 Status: Discontinuedinsulin lispro 2 unit, 0.02 mL, Route: SUB-Q, Drug form: SOLN, Sliding Scale, Dosing Weight 118 , kg, PRN Blood Glucose Results, Start date: 12/29/18 16:04:00 CDT, Duration: 30 day, Stop date: 01/28/19 16:03:00 CDT Notes: (Same as: Humalog ) Roll in palms of hands gently; Do not shake ` vigorously. "Single PatientUse Only " WASTE: F/P - Black; E - Municipal Trash Bin Stable for 28 days at room temperature.Expires in days from Date Start Date: 12/29/18 Stop Date: 12/30/18 Status: Discontinuedinsulin lispro 6 unit, 0.06 mL, Route: SUB-Q, Drug form: SOLN, Sliding Scale, Dosing Weight 118 , kg, PRN Blood Glucose Results, Start date: 12/29/18 16:04:00 CDT, Duration: 30 day, Stop date: 01/28/19 16:03:00 CDT Notes: (Same as: Humalog ) Roll in palms of hands gently; Do not shake ` vigorously. "Single PatientUse Only " WASTE: F/P - Black; E - Municipal Trash Bin Stable for 28 days at room temperature.Expires in days from Date Start Date: 12/29/18 Stop Date: 12/30/18 Status: Discontinuedinsulin lispro 8 unit, 0.08 mL, Route: SUB-Q, Drug form: SOLN, Sliding Scale, Dosing Weight 118 , kg, PRN Blood Glucose Results, Start date: 12/29/18 16:04:00 CDT, Duration: 30 day, Stop date: 01/28/19 16:03:00 CDT Notes: (Same as: Humalog ) Roll in palms of hands gently; Do not shake ` vigorously. "Single PatientUse Only " WASTE: F/P - Black; E - Municipal Trash Bin Stable for 28 days at room temperature.Expires in days from Date Start Date: 12/29/18 Stop Date: 12/30/18 Status: Discontinuedinsulin lispro 10 unit, 0.1 mL, Route: SUB-Q, Drug form: SOLN, Sliding Scale, Dosing Weight 118 , kg, PRN Blood Glucose Results, Start date: 12/29/18 16:04:00 CDT, Duration: 30 day, Stop date: 01/28/19 16:03:00 CDT Notes: (Same as: Humalog ) Roll in palms of hands gently; Do not shake ` vigorously. "Single PatientUse Only " WASTE: F/P - Black; E - Municipal Trash Bin Stable for 28 days at room temperature.Expires in days from Date Start Date: 12/29/18 Stop Date: 12/30/18 Status: Discontinuedinsulin lispro 4 unit, 0.04 mL, Route: SUB-Q, Drug form: SOLN, Sliding Scale, Dosing Weight 118 , kg, PRN Blood Glucose Results, Start date: 12/29/18 16:04:00 CDT, Duration: 30 day, Stop date: 01/28/19 16:03:00 CDT Notes: (Same as: Humalog ) Roll in palms of hands gently; Do not shake ` vigorously. "Single PatientUse Only " WASTE: F/P - Black; E - Municipal Trash Bin Stable for 28 days at room temperature.Expires in days from Date Start Date: 12/29/18 Stop Date: 12/30/18 Status: DiscontinuedIsolyte S PH 7.4 1,000 mL 1,000 mL, Rate: 75 ml/hr, Infuse over: 13.3 hr, Route: IV, Dosing Weight 118 kg , Total Volume: 1,000, Start date: 12/29/18 17:11:00 CDT, Duration: 1 doses or times, Stop date: 12/30/18 6:28:00 CDT, 2.5, m2 Notes: (Same as: Isolyte S PH 7.4) Start Date: 12/29/18 Stop Date: 12/29/18 Status: Completedlabetalol 10 mg, 2 mL, Route: IVP, Drug form: INJ, Q2H, Dosing Weight 127.4, kg, PRN Hypertension, For SBP > 140mmHg, Start date: 12/29/18 14:56:00 CDT, Duration : 3 doses or times, Stop date: Limited # of times Notes: (Same as: Normodyne, Trandate)Push over 2 minutes Give bolus over 2-3 minutes. Start Date: 12/29/18 Stop Date: 12/31/18 Status: Discontinuedlisinopril 20 mg, 1 tab, Route: PO, Drug form: TAB, BID, Dosing Weight 118, kg, Start date : 12/31/18 9:00:00 CDT, Duration: 30 day, Stop date: 01/29/19 17:00:00 CDT Notes: (Same as: Prinivil, Zestril) Start Date: 12/31/18 Stop Date: 12/31/18 Status: Canceledlisinopril 10 mg, 1 tab, Route: PO, Drug form: TAB, Q12H, Dosing Weight 118, kg, Start date : 12/29/18 21:00:00 CDT, Duration: 30 day, Stop date: 01/28/19 9:00:00 CDT Notes: (Same as: Prinivil, Zestril) Start Date: 12/29/18 Stop Date: 12/30/18 Status: Discontinuedlisinopril 30 mg, 3 tab, Route: PO, Drug form: TAB, Daily, Dosing Weight 118, kg, Start date: 12/31/18 9:00:00 CDT, Duration: 30 day, Stop date: 01/29/19 9:00:00 CDT Notes: (Same as: Prinivil, Zestril) Start Date: 12/31/18 Stop Date: 12/31/18 Status: Discontinuedlisinopril 30 mg oral tablet 30 mg=1 tab, PO, Daily, # 30 tab, 0 Refill(s) Start Date: 12/31/18 Status: OrderedLovenox 40 mg, 0.4 mL, Route: SUB-Q, Drug form: INJ, Q24H, Dosing Weight 118, kg, Start date: 12/30/18 17:00:00 CDT, Duration: 30 day, Stop date: 01/28/19 17:00:00 CDT Notes: (Same as: Lovenox) Start Date: 12/30/18 Stop Date: 12/31/18 Status: Discontinuedmagnesium oxide 800 mg, 2 tab, Route: PO, Drug form: TAB, PRN, Dosing Weight 127.4, kg, PRN Abnormal Lab Result, FORICU USE ONLY, Start date: 12/29/18 15:15:00 CDT, Duration: 30 day, Stop date: 01/28/19 15:14:00 CDT Notes: (Same as: Mag-Ox 400)Magnesium oxide [id number] elemental magnesiumDose= ____mg magnesium oxide (___mg elemental magnesium) Start Date: 12/29/18 Stop Date: 12/30/18 Status: Discontinuedmagnesium sulfate 2 gm, 50 mL, Route: IVPB, Drug form: INJ, PRN, Dosing Weight 127.4, kg, PRN Abnormal Lab Result, Start date: 12/29/18 15:15:00 CDT, Duration: 30 day, Stop date: 01/28/19 15:14:00 CDT, FOR ICU USE ONLY Notes: WASTE: F/P - Sink; E - Municipal Trash Bin Start Date: 12/29/18 Stop Date: 12/30/18 Status: DiscontinuedOmnipaque 350 injectable solution 100 mL, Route: IVP, Drug Form: SOLN, Dosing Weight 118, kg, ONCALL, For CTA exam with GFR > 45 mL/min, STAT, Start date: 12/29/18 17:17:00 CDT, Duration : 1 doses or times Notes: (same as:Omnipaque 350).WASTE: F/P - Black; E - Municipal Trash Bin Start Date: 12/29/18 Stop Date: 12/29/18 Status: Completedpotassium chloride 20 mEq, 1 tab, Route: PO, Drug form: ERTAB, PRN, Dosing Weight 127.4, kg, PRN Abnormal Lab Result, Start date: 12/29/18 15:15:00 CDT, Duration: 30 day, Stop date: 01/28/19 15:14:00 CDT, FOR ICU USE ONLY Notes: (Same as: K-Dur 20)"Do Not Crush" Give with food and full glass of waterFor patients unable to swallow tablet, dissolve in one half glass of water. Allow about 2 minutes for the tablets to disintegrate. Stir before giving to prepare slurry and administer.Please exclude Patients with feedingtube less than 14 [place] (Dobhoff, J-tube etc) and pediatric and patients. Start Date: 12/29/18 Stop Date: 12/30/18 Status: Discontinuedpotassium chloride 20 mEq, 15 mL, Route: NJ, Drug form: LIQ, PRN, Dosing Weight 127.4, kg, PRN Abnormal Lab Result, Start date: 12/29/18 15:15:00 CDT, Duration: 30 day, Stop date: 01/28/19 15:14:00 CDT, FOR ICU USE ONLY Notes: (Same as: Potassium Chloride) Start Date: 12/29/18 Stop Date: 12/30/18 Status: Discontinuedpotassium chloride 20 mEq, 100 mL, Route: IVPB, Drug form: INJ, PRN, Dosing Weight 127.4, kg, PRN Abnormal Lab Result, Via central line, Start date: 12/29/18 15:15:00 CDT, Duration: 30 day, Stop date: 01/28/19 15:14:00 CDT, FOR ICU USE ONLY Notes: (Same as: KCL) Infuse no faster than 10 mEq/hr if given peripherally. Start Date: 12/29/18 Stop Date: 12/30/18 Status: Discontinuedpotassium chloride 10 mEq, 100 mL, Route: IVPB, Drug form: INJ, PRN, Dosing Weight 127.4, kg, PRN Abnormal Lab Result, Via peripheral line, Start date: 12/29/18 15:15:00 CDT, Duration: 30 day, Stop date: 01/28/19 15:14:00 CDT, FOR ICU USE ONLY Notes: Infuse at a rate of 10 mEq/hr.(Same as: KCL) Start Date: 12/29/18 Stop Date: 12/30/18 Status: Discontinuedpotassium phosphate + Sodium Chloride 0.9% IV 250 mL 45 mmol, 15 mL, Route: IVPB, PRN, Dosing Weight 127.4, kg, PRN Abnormal Lab Result, Start date: 12/29/18 15:15:00 CDT, Duration: 30 day, Stop date: 15:14:00 CDT, FOR ICU USE ONLY Notes: (Same as: K Phosphate.)Do not infuse phosphorous concurrently in the same line as TPN or IVF that contains calcium. For double lumen central lines, phosphorous may be infused in a separate lumenfrom TPN. 1 mMol phoshate has 1.47 mEq potassium Infuse over 4 hours Start Date: 12/29/18 Stop Date: 12/30/18 Status: Discontinuedpotassium phosphate + Sodium Chloride 0.9% IV 250 mL 30 mmol, 10 mL, Route: IVPB, PRN, Dosing Weight 127.4, kg, PRN Abnormal Lab Result, Start date: 12/29/18 15:15:00 CDT, Duration: 30 day, Stop date: 15:14:00 CDT, FOR ICU USE ONLY Notes: (Same as: K Phosphate.)Do not infuse phosphorous concurrently in the same line as TPN or IVF that contains calcium. For double lumen central lines, phosphorous may be infused in a separate lumenfrom TPN. 1 mMol phoshate has 1.47 mEq potassium Infuse over 4 hours Start Date: 12/29/18 Stop Date: 12/30/18 Status: Discontinuedpotassium phosphate + Sodium Chloride 0.9% IV 250 mL 15 mmol, 5 mL, Route: IVPB, PRN, Dosing Weight 127.4, kg, PRN Abnormal Lab Result, Start date: 12/29/18 15:15:00 CDT, Duration: 30 day, Stop date: 15:14:00 CDT, FOR ICU USE ONLY Notes: (Same as: K Phosphate.)Do not infuse phosphorous concurrently in the same line as TPN or IVF that contains calcium. For double lumen central lines, phosphorous may be infused in a separate lumenfrom TPN. 1 mMol phoshate has 1.47 mEq potassium Infuse over 4 hours Start Date: 12/29/18 Stop Date: 12/30/18 Status: Discontinuedpotassium phosphate-sodium phosphate 250 mg-280 mg-160 mg oral powder for reconstitution 2 pkt, Route: PO, Drug Form: PDR/REC, Dosing Weight 127.4, kg, PRN, PRN Abnormal Lab Result, FOR ICUUSE ONLY, Start date: 12/29/18 15:15:00 CDT, Duration: 30 day, Stop date: 01/28/19 15:14:00 CDT Notes: (Same as: Phos-NaK) Each 1.5 gm pkt has 250mg phosphorous. Mix w/2.5oz water and stir. Start Date: 12/29/18 Stop Date: 12/30/18 Status: DiscontinuedSaline Flush 0.9% 10 ml, Route: IVP, Drug Form: INJ, Dosing Weight 127.4, kg, PRN, PRN Line Flush , Start date: 12/29/18 14:56:00 CDT, Duration: 30 day, Stop date: 01/28/19 14:55 :00 CDT Notes: Same as: BD Posiflush Sterile Start Date: 12/29/18 Stop Date: 12/31/18 Status: DiscontinuedSaline Flush 0.9% 10 ml, Route: IVP, Drug Form: INJ, Dosing Weight 127.4, kg, Q12H, Start date: 21:00:00 CDT,Duration: 30 day, Stop date: 01/28/19 9:00:00 CDT Notes: Same as: BD Posiflush Sterile Start Date: 12/29/18 Stop Date: 12/31/18 Status: Discontinuedsenna 8.6 mg oral tablet 8.6 mg, 1 tab, Route: PO, Drug Form: TAB, Dosing Weight 118, kg, Q12H, PRN as needed for constipation, Start date: 12/29/18 21:00:00 CDT, Duration: 30 day, Stop date: 01/28/19 9:00:00 CDT Notes: (Same as: Senokot) Start Date: 12/29/18 Stop Date: 12/31/18 Status: DiscontinuedSodium Chloride 0.9% IV 250 mL, Route: IVPB, Start date: 12/29/18 17:46:00 CDT, Duration: 30 day, Stop date: 01/28/19 17:45:00 CDT, PRN Line Flush Start Date: 12/29/18 Stop Date: 12/31/18 Status: DiscontinuedSodium Chloride 0.9% IV 1,000 mL 1,000 mL, Rate: 75 ml/hr, Infuse over: 13.3 hr, Route: IV, Dosing Weight 127.4 kg, Total Volume: 1,000, Start date: 12/29/18 14:56:00 CDT, Duration: 30 day, Stop date: 01/28/19 14:55:00 CDT, 2.61, m2 Start Date: 12/29/18 Stop Date: 12/29/18 Status: Discontinuedsodium phosphate + Sodium Chloride 0.9% IV 250 mL 45 mmol, 15 mL, Route: IVPB, PRN, Dosing Weight 127.4, kg, PRN Abnormal Lab Result, Start date: 12/29/18 15:15:00 CDT, Duration: 30 day, Stop date: 15:14:00 CDT, FOR ICU USE ONLY Notes: Infuse over 4 hour. Do not infuse phosphorous concurrently in the same line as TPN or IVF that contains calcium. For double lumen central lines, phosphorous may be infused in a separate lumen from TPN. Start Date: 12/29/18 Stop Date: 12/30/18 Status: Discontinuedsodium phosphate + Sodium Chloride 0.9% IV 250 mL 30 mmol, 10 mL, Route: IVPB, PRN, Dosing Weight 127.4, kg, PRN Abnormal Lab Result, Start date: 12/29/18 15:15:00 CDT, Duration: 30 day, Stop date: 15:14:00 CDT, FOR ICU USE ONLY Notes: Infuse over 4 hour. Do not infuse phosphorous concurrently in the same line as TPN or IVF that contains calcium. For double lumen central lines, phosphorous may be infused in a separate lumen from TPN. Start Date: 12/29/18 Stop Date: 12/30/18 Status: Discontinuedsodium phosphate + Sodium Chloride 0.9% IV 250 mL 15 mmol, 5 mL, Route: IVPB, PRN, Dosing Weight 127.4, kg, PRN Abnormal Lab Result, Start date: 12/29/18 15:15:00 CDT, Duration: 30 day, Stop date: 15:14:00 CDT, FOR ICU USE ONLY Notes: Infuse over 4 hour. Do not infuse phosphorous concurrently in the same line as TPN or IVF that contains calcium. For double lumen central lines, phosphorous may be infused in a separate lumen from TPN. Start Date: 12/29/18 Stop Date: 12/30/18 Status: Discontinued Results ELECTROLYTES Most recent to oldest [Reference Range]: 1 2 Sodium Lvl [135-145 mEq/L] 141 mEq/L 141 mEq/L (12/30/18 3:56 AM) (12/29/18 3:59 PM) Potassium Lvl [3.5-5.1 mEq/L] 3.5 mEq/L 3.6 mEq/L (12/30/18 3:56 AM) (12/29/18 3:59 PM) Chloride Lvl [95-109 mEq/L] 109 mEq/L 109 mEq/L (12/30/18 3:56 AM) (12/29/18 3:59 PM) CO2 [24-32 mEq/L] 27 mEq/L 26 mEq/L (12/30/18 3:56 AM) (12/29/18 3:59 PM) AGAP [10.0-20.0 mEq/L] 8.5 mEq/L 9.6 mEq/L *LOW* *LOW* (12/30/18 3:56 AM) (12/29/18 3:59 PM) CHEM PANEL Most recent to oldest [Reference Range]: 1 2 Creatinine Lvl [0.50-1.40 mg/dL] 0.80 mg/dL 0.80 mg/dL (12/30/18 3:56 AM) (12/29/18 3:59 PM) eGFR 129 mL/min/1.73m2 1 129 mL/min/1.73m2 2 *NA* *NA* (12/30/18 3:56 AM) (12/29/18 3:59 PM) BUN [7-22 mg/dL] 11 mg/dL 11 mg/dL (12/30/18 3:56 AM) (12/29/18 3:59 PM) Glucose Lvl [70-99 mg/dL] 150 mg/dL 145 mg/dL *HI* *HI* (12/30/18 3:56 AM) (12/29/18 3:59 PM) Calcium Lvl [8.5-10.5 mg/dL] 9.0 mg/dL 9.0 mg/dL (12/30/18 3:56 AM) (12/29/18 3:59 PM) Phosphorus [2.5-4.5 mg/dL] 2.7 mg/dL (12/30/18 3:56 AM) Magnesium Lvl [1.8-2.4 mg/dL] 2.1 mg/dL (12/30/18 3:56 AM) 1Result Comment: The eGFR is calculated using the CKD-EPI formula. In most young , healthy individualsthe eGFR will be >90 mL/min/1.73m2. The eGFR declines with age. An eGFR of 60-89 may be normal insome populations, particularly the elderly, for whom the CKD-EPI formula has not been extensively validated. Use of the eGFR is not recommended in the following populations: Individuals with unstable creatinine concentrations, including patients and those with serious co-morbid conditions. Patients with extremes in muscle mass or diet. The data above are obtained from the National Kid[employer] Education Program ( [employer]) which additionally recommends that when the eGFR is used in patients with extremes of body mass index for purposesof drug dosing, the eGFR should be multiplied by the estimated BMI.2Result Comment: The eGFR is calculated using the CKD-EPI formula. In most young, healthy individualsthe eGFR will be >90 mL/min/1.73m2. The eGFR declines with age. An eGFR of 60-89 may be normal insome populations, particularly the elderly, for whom the CKD-EPI formula has not been extensively validated. Use of the eGFR is not recommended in the following populations: Individuals with unstable creatinine concentrations, including patients and those with serious co-morbid conditions. Patients with extremes in muscle mass or diet. The data above are obtained from the National Kid[employer] Education Program ( [employer]) which additionally recommends that when the eGFR is used in patients with extremes of body mass index for purposesof drug dosing, the eGFR should be multiplied by the estimated BMI.LIPIDS Most recent to oldest [Reference Range]: 1 2 CHD Risk [4.00-7.30] 2.93 *LOW* (12/29/18 4:01 PM) Chol [<=199 mg/dL] 176 mg/dL (12/29/18 4:01 PM) Trig [<=149 mg/dL] 98 mg/dL (12/29/18 4:01 PM) HDL [>=61 mg/dL] 60 mg/dL *LOW* (12/29/18 4:01 PM) LDL (Calculated) [<=99 mg/dL] 96 mg/dL (12/29/18 4:01 PM) VLDL 20 *NA* (12/29/18 4:01 PM) SPECIAL CHEMISTRY Most recent to oldest [Reference Range]: 1 2 Hgb A1C [<=5.6 %] 6.9 % *HI* (12/29/18 4:01 PM) PARATHYROID PROFILE Most recent to oldest [Reference Range]: 1 2 Ca Ion WB [1.05-1.25 mMol/L] 1.17 mMol/L (12/30/18 3:56 AM) Ca Norm WB [1.05-1.25 mMol/L] 1.17 mMol/L (12/30/18 3:56 AM) HEMATOLOGY Most recent to oldest [Reference Range]: 1 2 WBC [3.7-10.4 K/CMM] 6.2 K/CMM 7.5 K/CMM (12/30/18 3:56 AM) (12/29/18 3:59 PM) RBC [4.70-6.10 M/CMM] 4.44 M/CMM 4.65 M/CMM *LOW* *LOW* (12/30/18 3:56 AM) (12/29/18 3:59 PM) Hgb [14.0-18.0 g/dL] 12.2 g/dL 12.8 g/dL *LOW* *LOW* (12/30/18 3:56 AM) (12/29/18 3:59 PM) Hct [42.0-54.0 %] 37.3 % 39.3 % *LOW* *LOW* (12/30/18 3:56 AM) (12/29/18 3:59 PM) MCV [80.0-94.0 fL] 84.0 fL 84.6 fL (12/30/18 3:56 AM) (12/29/18 3:59 PM) MCH [27.0-31.0 pg] 27.6 pg 27.6 pg (12/30/18 3:56 AM) (12/29/18 3:59 PM) MCHC [32.0-36.0 g/dL] 32.8 g/dL 32.6 g/dL (12/30/18 3:56 AM) (12/29/18 3:59 PM) RDW [11.5-14.5 %] 14.1 % 13.9 % (12/30/18 3:56 AM) (12/29/18 3:59 PM) MPV [7.4-10.4 fL] 7.6 fL 7.3 fL (12/30/18 3:56 AM) *LOW* (12/29/18 3:59 PM) Platelet [133-450 K/CMM] 269 K/CMM 319 K/CMM (12/30/18 3:56 AM) (12/29/18 3:59 PM) Segs [45.0-75.0 %] 54.4 % 59.3 % (12/30/18 3:56 AM) (12/29/18 3:59 PM) Lymphocytes [20.0-40.0 %] 35.3 % 33.0 % (12/30/18 3:56 AM) (12/29/18 3:59 PM) Monocytes [2.0-12.0 %] 8.0 % 6.9 % (12/30/18 3:56 AM) (12/29/18 3:59 PM) Eosinophils [0.0-4.0 %] 1.9 % 0.7 % (12/30/18 3:56 AM) (12/29/18 3:59 PM) Basophils [0.0-1.0 %] 0.4 % 0.1 % (12/30/18 3:56 AM) (12/29/18 3:59 PM) Neutrophils # [1.5-8.1 K/CMM] 3.4 K/CMM 4.4 K/CMM (12/30/18 3:56 AM) (12/29/18 3:59 PM) Lymphocytes # [1.0-5.5 K/CMM] 2.2 K/CMM 2.5 K/CMM (12/30/18 3:56 AM) (12/29/18 3:59 PM) Monocytes # [0.0-0.8 K/CMM] 0.5 K/CMM 0.5 K/CMM (12/30/18 3:56 AM) (12/29/18 3:59 PM) Eosinophils # [0.0-0.5 K/CMM] 0.1 K/CMM 0.1 K/CMM (12/30/18 3:56 AM) (12/29/18 3:59 PM) Basophils # [0.0-0.2 K/CMM] 0.0 K/CMM (12/29/18 3:59 PM) BACTERIAL - SEROLOGY Most recent to oldest [Reference Range]: 1 2 MRSA by PCR Negative (12/29/18 3:59 PM) Immunizations No data available for this section Procedures No data available for this section Social History Social History Type Response Alcohol Current, Type Beer, Liquor. Frequency: 1-2 times per month. Smoking Status Current every day smoker; Type: Cigarettes; Exposure to Tobacco Smoke smoker; Cigarette Smoking Last 365 Days Yes; Reg Smoking Cessation Counseling No; Other Tobacco Frequency 1 pack/day; entered on: 12/29/18 Assessment and Plan Extracted from: Title: ICU Stepdown Note Author: Mary Ann Naqvi DO Date: 12/30/18 38-year-old male with a history of uncontrolled hypertensionand right thalamic intracranial hemorrhage presenting with a new left basal ganglia hemorrhagesecondary to hypertensiveemergency 1.Infarction of left basal ganglia(I63.9) -Hemorrhagic infarction of left basal ganglia secondary to hypertensive urgency stable on repeat imaging -Neurology following -SBP goal less than 150 -Carvedilol 12.5 mgevery 12 hours -Patient's blood pressuresnot quite at goal with lisinopril 10 mg twice daily -Increase lisinopril to 30 mg daily -We will consider discharge tomorrow if patient is stable and blood pressures are well controlled 2.Uncontrolled hypertension(I10) -Patient noncompliant with medications prior to this hospitalization. Will encourage patient compliance and stressed risk of future bleeds with uncontrolled hypertension. -Patientstates that the strokes are secondary to stress. Consider antianxiety medicationto be prescribed outpatient by PCP. -Recommend close follow-up with PCP. Will provide information regarding local clinics including [facility] to patient prior to discharge. -Blood pressures improved but were not at goal on lisinopril 10 twice daily -Increase lisinopril to 30 daily -Continue carvedilol 12.5 every 12 hours -Consider addingHCTZ to blood pressure regimen;patient may be more compliant with combopilllisinopril/HCTZ if both medications are required. 3.Diabetes(E11.9) -Sugars have been well controlled on insulin5 units with meals -Continue regular POC glucose checks Heparin Inpatient for management of acute left basal ganglia stroke Patient careandplan discussed with Sr. resident physician Dr. Mancera. Mary Ann Naqvi DO PGY1 MSO: [id number]
--- OUTSIDE RECORDS SUMMARY | 2019-02-08 10:40 | XMS REPORT | Continuity of Care Document ---
:1980 Author Organization Interface Problems Problem Status Onset Classification Date Comments Source Date Reported HEMORRHAGIC Active 12/30/19 [facility] STROKE 19 BRAIN BLEED Active 09/28/[address] MARA Active 09/28/19 [facility] ACUTE ICH Active 09/28/[address] [facility] Diabetes Active Problem 01/29/2019 [facility] Dysphagia Active Problem 01/29/2019 [facility] HTN (<span Active Problem 01/29/2019 [facility] ID="[id number] [facility] ">Confirmed</[facility] n>) [facility] HTN (<span Active Problem 04/06/2018 [facility], ID="[id number] [facility] ">Confirmed</[facility] n>) NONTRAUMATIC Active [facility] HEMORRHAGE, U ILLNESS, Active [facility] UNSPECIFIED Medications Medication Details Route Status Patient Ordering Order Source Instructions Provider Date carvedilol 12.5 mg 12.5 mg=1 Active oral tablet tab, PO, 2018 [facility] Q12H, # 60 tab, 0 Refill(s) lisinopril 30 mg 30 mg=1 tab, Active oral tablet PO, Daily, # 2019 [facility] 30 tab, 0 Refill(s) Lisinopril 20 mg, 1 tab, Inactive Route: PO, 2018 [facility] Drug form: TAB, BID, Dosing Weight 118, kg, Start date: 12/31/18 9:00:00 CDT, Duration: 30 day, Stop date: 01/29/19 17:00:00 CDTNotes: (Same as: Prinivil, Zestril) Hydrochlorothiazide 1 tab, Route: No Longer 12.5 MG / PO, Drug Active 2018 [facility] Lisinopril 20 MG Form: TAB, Oral Tablet Dosing Weight 118, kg, Daily, Start date: 12/31/18 9:00:00 CDT, Duration: 30 day, Stop date: 01/29/19 9:00:00 CDT Insulin Lispro 8 unit, 0.08 No Longer mL, Route: Active 2018 [facility] SUB-Q, Drug form: SOLN, TID-Before Meals, Dosing Weight 118, kg, PRN Blood Glucose Results, Start date: 12/30/18 23:44:00 CDT, Duration: 30 day, Stop date: 01/29/19 23:43:00 CDTNotes: (Same as: Humalog ) Roll in palms of hands gently; Do not shake `vigorously. "Single Patient Use Only " WASTE: F/P - Black; E - Municipal Trash Bin Stable for 28 days at room temperature. Expires in days from _Date Dextrose 50% 25 gm, 50 mL, No Longer Syringe Route: IVP, Active 2018 [facility] Drug Form: INJ, Dosing Weight 118, kg, PRN, PRN Blood Glucose Results, Start date: 12/30/18 23:44:00 CDT, Duration: 30 day, Stop date: 01/29/19 23:43:00 CDT Glucagon 1 mg, Route: No Longer IM, Drug Active 2018 [facility] form: PDR/INJ, PRN, Dosing Weight 118, kg, PRN Blood Glucose Results, Start date: 12/30/18 23:44:00 CDT, Duration: 30 day, Stop date: 01/29/19 23:43:00 CDT Lovenox 40 mg, 0.4 No Longer mL, Route: Active 2018 [facility] SUB-Q, Drug form: INJ, Q24H, Dosing Weight 118, kg, Start date: 12/30/18 17:00:00 CDT, Duration: 30 day, Stop date: 01/28/19 17:00:00 CDTNotes: (Same as: Lovenox) insulin, isophane 5 unit, 0.05 No Longer mL, Route: Active 2018 [facility] SUB-Q, Drug form: INJ, TID-Before Meals, Dosing Weight 118, kg, Start date: 12/30/18 8:54:00 CDT, Duration: 30 day, Stop date: 01/29/19 7:30:00 CDTNotes: Roll in palms of hands gently; Do not shake vigorously. (Same as: Humulin N) Do not hold insulin without contacting prescriber WASTE: F/P - Black; E - Municipal Trash Bin Stable for 28 days at room temperature Expires in days from _Date heparin 5,000 unit, 1 No Longer mL, Route: Active 2018 [facility] SUB-Q, Drug form: INJ, Q8H, Dosing Weight 118, kg, Start date: 12/30/18 0:00:00 CDT, Duration: 30 day, Stop date: 01/28/19 16:00:00 CDTNotes: porcine heparin Docusate 100 mg, 1 No Longer cap, Route: Active 2018 [facility] PO, Drug form: CAP, Q12H, Dosing Weight 118, kg, PRN as needed for constipation, Start date: 12/29/18 21:00:00 CDT, Duration: 30 day, Stop date: 01/28/19 9:00:00 CDTNotes: (Same as: Colace) (Do Not Crush) Lisinopril 10 mg, 1 tab, No Longer Route: PO, Active 2018 [facility] Drug form: TAB, Q12H, Dosing Weight 118, kg, Start date: 12/29/18 21:00:00 CDT, Duration: 30 day, Stop date: 01/28/19 9:00:00 CDTNotes: (Same as: Prinivil, Zestril) Coreg 12.5 mg, 1 No Longer tab, Route: Active 2018 [facility] PO, Drug form: TAB, Q12H, Dosing Weight 118, kg, Start date: 12/29/18 21:00:00 CDT, Duration: 30 day, Stop date: 01/28/19 9:00:00 CDTNotes: Give with food. (Same As: Coreg) sennosides, DETENTION 8.6 8.6 mg, 1 No Longer MG Oral Tablet tab, Route: Active 2018 [facility] PO, Drug Form: TAB, Dosing Weight 118, kg, Q12H, PRN as needed for constipation, Start date: 12/29/18 21:00:00 CDT, Duration: 30 day, Stop date: 01/28/19 9:00:00 CDTNotes: (Same as: Marceloot) Saline Flush 0.9% 10 ml, Route: No Longer IVP, Drug Active 2018 [facility] Form: INJ, Dosing Weight 127.4, kg, Q12H, Start date: 12/29/18 21:00:00 CDT, Duration: 30 day, Stop date: 01/28/19 9:00:00 CDTNotes: Same as: BD Posiflush Sterile Sodium Chloride 250 mL, No Longer 0.9% IV Route: IVPB, Active 2018 [facility] Start date: 12/29/18 17:46:00 CDT, Duration: 30 day, Stop date: 01/28/19 17:45:00 CDT, PRN Line Flush BD Normal Saline 10 mL, Route: Inactive Flush IVP, Drug 2018 [facility] Form: INJ, PRN, PRN Line Flush, Start date: 12/29/18 17:45:00 CDT, Duration: 30 day, Stop date: 01/28/19 17:44:00 CDTNotes: Same as: BD Posiflush Sterile Omnipaque 350 100 mL, Inactive injectable solution Route: IVP, 2018 [facility] Drug Form: SOLN, Dosing Weight 118, kg, ONCALL, For CTA exam with GFR > 45 mL/min, STAT, Start date: 12/29/18 17:17:00 CDT, Duration: 1 doses or timesNotes: (same as:Omnipaque 350). WASTE: F/P - Black; E - Municipal Trash Bin Isolyte S PH 7.4 1,000 mL, Inactive 1,000 mL Rate: 75 [facility] ml/hr, Infuse over: 13.3 hr, Route: IV, Dosing Weight 118 kg, Total Volume: 1,000, Start date: 12/29/18 17:11:00 CDT, Duration: 1 doses or times, Stop date: 12/30/18 6:28:00 CDT, 2.5, [id number]: (Same as: Isolyte S PH 7.4) Insulin Lispro 2 unit, 0.02 No Longer mL, Route: Active 2019 [facility] SUB-Q, Drug form: SOLN, Sliding Scale, Dosing Weight 118, kg, PRN Blood Glucose Results, Start date: 12/29/18 16:04:00 CDT, Duration: 30 day, Stop date: 01/28/19 16:03:00 CDTNotes: (Same as: Humalog ) Roll in palms of hands gently; Do not shake `vigorously. "Single Patient Use Only " WASTE: F/P - Black; E - Municipal Trash Bin Stable for 28 days at room temperature. Expires in days from _Date Glucagon 1 mg, Route: No Longer IM, Drug Active 2018 [facility] form: PDR/INJ, PRN, Dosing Weight 118, kg, PRN Blood Glucose Results, Start date: 12/29/18 16:04:00 CDT, Duration: 30 day, Stop date: 01/28/19 16:03:00 CDT Dextrose 50% 25 gm, 50 mL, No Longer Syringe Route: IVP, Active 2018 [facility] Drug Form: INJ, Dosing Weight 118, kg, PRN, PRN Blood Glucose Results, Start date: 12/29/18 16:04:00 CDT, Duration: 30 day, Stop date: 01/28/19 16:03:00 CDT potassium phosphate 45 mmol, 15 No Longer mL, Route: Active 2018 [facility] IVPB, PRN, Dosing Weight 127.4, kg, PRN Abnormal Lab Result, Start date: 12/29/18 15:15:00 CDT, Duration: 30 day, Stop date: 01/28/19 15:14:00 CDT, FOR ICU USE ONLYNotes: (Same as: K Phosphate.) Do not infuse phosphorous concurrently in the same line as TPN or IVF that contains calcium. For double lumen central lines, phosphorous may be infused in a separate lumen from TPN. 1 mMol phoshate has 1.47 mEq potassium Infuse over 4 hours Calcium Carbonate 1,000 mg, 2 No Longer 500 MG Chewable tab, Route: Active 2019 [facility] Tablet PO, Drug form: CHEWTAB, PRN, Dosing Weight 127.4, kg, PRN Abnormal Lab Result, FOR ICU USE ONLY, Start date: 12/29/18 15:15:00 CDT, Duration: 30 day, Stop date: 01/28/19 15:14:00 CDTNotes: (Same As: Tums) Calcium Carbonate 500 ym=351 mg elemental calcium Dose= mg calcium carbonate ( mg elemental calcium) Calcium Gluconate 1 gm, 50 mL, No Longer Route: IVPB, Active 2018 [facility] Drug form: INJ, PRN, Dosing Weight 127.4, kg, PRN Abnormal Lab Result, Start date: 12/29/18 15:15:00 CDT, Duration: 30 day, Stop date: 01/28/19 15:14:00 CDT, FOR ICU USE ONLYNotes: WASTE: F/P - Sink; E - Municipal Trash Bin Magnesium Oxide 800 mg, 2 No Longer tab, Route: Active 2018 [facility] PO, Drug form: TAB, PRN, Dosing Weight 127.4, kg, PRN Abnormal Lab Result, FOR ICU USE ONLY, Start date: 12/29/18 15:15:00 CDT, Duration: 30 day, Stop date: 01/28/19 15:14:00 CDTNotes: (Same as: Mag-Ox 400) Magnesium oxide [id number] elemental magnesium Dose=____mg magnesium oxide (___mg elemental magnesium) Magnesium Sulfate 2 gm, 50 mL, No Longer Route: IVPB, Active 2018 [facility] Drug form: INJ, PRN, Dosing Weight 127.4, kg, PRN Abnormal Lab Result, Start date: 12/29/18 15:15:00 CDT, Duration: 30 day, Stop date: 01/28/19 15:14:00 CDT, FOR ICU USE ONLYNotes: WASTE: F/P - Sink; E - Municipal Trash Bin potassium 2 pkt, Route: No Longer phosphate-sodium PO, Drug Active 2018 [facility] phosphate 250 Form: mg-280 mg-160 mg PDR/REC, oral powder for Dosing Weight reconstitution 127.4, kg, PRN, PRN Abnormal Lab Result, FOR ICU USE ONLY, Start date: 12/29/18 15:15:00 CDT, Duration: 30 day, Stop date: 01/28/19 15:14:00 CDTNotes: (Same as: Phos-NaK) Each 1.5 gm pkt has 250mg phosphorous. Mix w/2.5oz water and stir. sodium phosphate 45 mmol, 15 No Longer mL, Route: Active 2018 [facility] IVPB, PRN, Dosing Weight 127.4, kg, PRN Abnormal Lab Result, Start date: 12/29/18 15:15:00 CDT, Duration: 30 day, Stop date: 01/28/19 15:14:00 CDT, FOR ICU USE ONLYNotes: Infuse over 4 hour. Do not infuse phosphorous concurrently in the same line as TPN or IVF that contains calcium. For double lumen central lines, phosphorous may be infused in a separate lumen from TPN. Potassium Chloride 20 mEq, 1 No Longer tab, Route: Active 2018 [facility] PO, Drug form: ERTAB, PRN, Dosing Weight 127.4, kg, PRN Abnormal Lab Result, Start date: 12/29/18 15:15:00 CDT, Duration: 30 day, Stop date: 01/28/19 15:14:00 CDT, FOR ICU USE ONLYNotes: (Same as: K-Dur 20) "Do Not Crush" Give with food and full glass of water For patients unable to swallow tablet, dissolve in one half glass of water. Allow about 2 minutes for the tablets to disintegrate. Stir before giving to prepare slurry and administer. Please exclude Patient&#[id number] ;s with feeding tube less than 14 [place] (Dobhoff, J-tube etc) and pediatric and patients. Cardene 40 mg in NS 40 mg, 200 No Longer 200 mL (Titrate.) mL, Rate: Active 2019 [facility] IV 40 mg Titrate, Start Dose: 5 mg/hr, Titration: 2.5 mg/hr every 15 minutes, Goal(s): SBP goal 100-150, Max Dose: 15 mg/hr, Route: IV, Dosing Weight 127.4 kg, Total Volume: 200, Start date: 12/29/18 15:14:00 CDT, Duration: 30 day, Stop da...Notes: Same as: Cardene Concentration : (0.2 mg /1 ml ) Saline Flush 0.9% 10 ml, Route: No Longer IVP, Drug Active 2018 [facility] Form: INJ, Dosing Weight 127.4, kg, PRN, PRN Line Flush, Start date: 12/29/18 14:56:00 CDT, Duration: 30 day, Stop date: 01/28/19 14:55:00 CDTNotes: Same as: BD Posiflush Sterile Acetaminophen 650 mg, 2 No Longer tab, Route: Active 2018 [facility] PO, Drug form: TAB, Q4H, Dosing Weight 127.4, kg, PRN Pain 1-3/Temp > 100.4 F, Start date: 12/29/18 14:56:00 CDT, Duration: 30 day, Stop date: 01/28/19 14:55:00 CDTNotes: Do not exceed 4 gm/day. (Same as: Tylenol) Labetalol 10 mg, 2 mL, No Longer Route: IVP, Active 2018 [facility] Drug form: INJ, Q2H, Dosing Weight 127.4, kg, PRN Hypertension, For SBP > 140mmHg, Start date: 12/29/18 14:56:00 CDT, Duration: 3 doses or times, Stop date: Limited # of timesNotes: (Same as: Normodyne, Trandate) Push over 2 minutes Give bolus over 2-3 minutes. enalapril 0.625 mg, 0.5 No Longer mL, Route: Active 2018 [facility] IVP, Drug form: INJ, Q6H, Dosing Weight 127.4, kg, PRN Hypertension, For SBP > 140mmHg, Start date: 12/29/18 14:56:00 CDT, Duration: 30 day, Stop date: 01/28/19 14:55:00 CDTNotes: (Same as: Vasotec-IV) Sodium Chloride 1,000 mL, Inactive 0.9% IV 1,000 mL Rate: 2018 [facility] ml/hr, Infuse over: 13.3 hr, Route: IV, Dosing Weight 127.4 kg, Total Volume: 1,000, Start date: 12/29/18 14:56:00 CDT, Duration: 30 day, Stop date: 01/28/19 14:55:00 CDT, 2.61, m2 Allergies, Adverse Reactions, Alerts Substance Category Reaction Severity Reaction Status Date Comments Source type Reported No Known Assertion Drug Mischer Medication allergy Neuro Allergies Immunizations Immunization Date Given Site Status Last Updated Comments Source Results Order Name Results Value Reference Date Interpretation Comments Source Range CHEM PANEL Phosphorus 2.7 mg/dL 2.5 - 4.5 12/30 [facility] CHEM PANEL Magnesium 2.1 mg/dL 1.8 - 2.4 12/30 [facility] CHEM PANEL Calcium Lvl 9.0 mg/dL 8.5 - 10.5 12/30 [facility] CHEM PANEL CO2 27 meq/L 24 - 32 12/30 [facility] CHEM PANEL BUN 11 mg/dL 7 - 22 12/30 [facility] CHEM PANEL Sodium Lvl 141 meq/L 135 - 145 12/30 [facility] CHEM PANEL Potassium 3.5 meq/L 3.5 - 5.1 12/30 [facility] CHEM PANEL Chloride Lvl 109 meq/L 95 - 109 12/30 [facility] CHEM PANEL Glucose Lvl 150 mg/dL 70 - 99 12/30 [facility] CHEM PANEL eGFR 129 12/30 Result Comment: The eGFR is calculated using the CKD-EPI formula. In most young, healthy individuals the eGFR will be >90 mL/ min/1.73m2. The eGFR declines with age. An eGFR of 60-89 may be normal in MH mL/min/1.7 some populations, particularly the elderly, for whom the CKD-EPI formula has not been extensively validated. Use of the eGFR is not recommended in the following populations: [address] Individuals with unstable creatinine concentrations, including patients and those with serious co-morbid conditions. Patients with extremes in muscle mass or diet. The data above are obtained from the National Kidney Disease Education Program (NKDEP) which additionally recommends that when the eGFR is used in patients with extremes of body mass index for purposes of drug dosing, the eGFR should be multiplied by the estimated BMI. CHEM PANEL Creatinine 0.80 mg/dL 0.50 - 12/30 Lvl 1.40 [facility] CHEM PANEL AGAP 8.5 meq/L 10.0 - 12/30 20.0 /2018 [facility] HEMATOLOGY Eosinophils 1.9 % 0.0 - 4.0 04/ MH /2018 [facility] HEMATOLOGY Basophils 0.4 % 0.0 - 1.0 04/ [facility] HEMATOLOGY Segs 54.4 % 45.0 - 12/30 75.0 /2018 [facility] HEMATOLOGY Neutrophils 3.4 K/CMM 1.5 - 8.1 / MH # /2018 [facility] HEMATOLOGY Eosinophils 0.1 K/CMM 0.0 - 0.5 / # /2018 [facility] HEMATOLOGY Monocytes # 0.5 K/CMM 0.0 - 0.8 12/30 [facility] HEMATOLOGY Lymphocytes 2.2 K/CMM 1.0 - 5.5 04 # /2018 [facility] HEMATOLOGY Lymphocytes 35.3 % 20.0 - 04 MH 40.0 /2018 [facility] HEMATOLOGY Monocytes 8.0 % 2.0 - 12.0 12/30 [facility] Platelet 269 K/CMM 133 - 450 12/30 [facility] HEMATOLOGY RDW 14.1 % 11.5 - 12/30 14.5 [facility] HEMATOLOGY MCV 84.0 fL 80.0 - 12/30 MH 94.0 /2018 [facility] MCH 27.6 pg 27.0 - 12/30 31.0 [facility] MCHC 32.8 g/dL 32.0 - 12/30 MH 36.0 [facility] MPV 7.6 fL 7.4 - 10.4 12/30 [facility] WBC 6.2 K/CMM 3.7 - 10.4 12/30 [facility] RBC 4.44 M/CMM 4.70 - 12/30 6.10 [facility] Hgb 12.2 g/dL 14.0 - 12/30 18.0 [facility] Hct 37.3 % 42.0 - 12/30 54.0 [facility] PARATHYROI Ca Norm WB 1.17 1.05 - 12/30 D PROFILE mMol/L . [facility] PARATHYROI Ca Ion WB 1.17 1.05 - 12/30 D PROFILE mMol/L . [facility] Brain wo Brain wo Clinical Indication: - follow up; intracranial hemorrhage , weakness. 12/30 - contrast contrast CT - [facility] CT Comparison: Head CT on 12/29/2018 at 1745 hours Read by: Merrill Newman MD Dictated Date/time: 12/30/18 08:32 Electronically Signed by: Merrill Newman MD 12/30/18 08:40 FINAL REPORT TECHNIQUE: CT images were obtained from the foramen magnum to the vertex without the use of intravenous contrast on a multidetector CT. Coronal and sagittal reconstructions were obtained. CT imaging performed at this location utilizes radiation dose optimization techniques which include one or more of the following: -Automated exposure control -Adjustment of the mA and/or kV according to patient size -Use of iterative reconstruction technique CT Radiation Dose DLP 747 mGy-cm FINDINGS: BRAIN PARENCHYMA: A 2.7 (AP) x 1.6 (TR) x 2.4 (CC) cm hyperdense acute hematoma within the left temporal lobe associated with moderate mass effect on the left lateral ventricle is reidentified, stable in size. A 3 mm lef t to right midline shift is unchanged. The surrounding edema has slightly increased. VENTRICLES: Stable moderate mass effect on the left lateral ventricle. The right lateral ventricle, third and fourth ventricles appear unremarkable. The basilar cisterns are normal. ORBITS, MASTOIDS AND PARANASAL SINUSES: The limited visualized orbits are unremarkable. Mild mucosal thickening of the left maxillary sinus. The limited visualized other paranasal sinuses are unremarkable. The mastoid air cells are clear. SKULL: There are no osseous abnormalities. If there is further concern for intracranial pathology or acute stroke, MRI of the brain may be performed for complete assessment. ---- IMPRESSION: 1. Stable in size of the 2.7 cm acute hyperdense intraparenchymal hematoma within the left temporal lobe with moderate mass effect on the left lateral ventricle, 3 mm left to right midline shift. 2. Slight increase in size of mild surrounding hypodense edema. ----- SL: EMIDIA-M LIPIDS VLDL 20 12/29 [facility] LIPIDS LDL 96 mg/dL <=99 mg/dL 12/29 (Calculated) [facility] LIPIDS Trig 98 mg/dL <=149 12/29 MH mg/dL [facility] LIPIDS Chol 176 mg/dL <=199 12/29 MH mg/dL [facility] LIPIDS HDL 60 mg/dL >=61 mg/dL 12/29 [facility] LIPIDS CHD Risk 2.93 4.00 - 04 MH 7.30 [facility] SPECIAL Hgb A1C 6.9 % <=5.6 % 12/29 CHEMISTRY [facility] BACTERIAL MRSA by PCR Negative 12/29 - SEROLOGY [facility] (12/29/18 3:59 PM) ELECTROLYT AGAP 9.6 meq/L 10.0 - 12/29 ES 20.0 [facility] ELECTROLYT eGFR 129 12/29 Result Comment: The eGFR is calculated using the CKD-EPI formula. In most young, healthy individuals the eGFR will be >90 mL/ min/1.73m2. The eGFR declines with age. An eGFR of 60-89 may be normal in ES mL/min/1.7 some populations, particularly the elderly, for whom the CKD-EPI formula has not been extensively validated. Use of the eGFR is not recommended in the following populations: [facility] 3m2 Individuals with unstable creatinine concentrations, including patients and those with serious co-morbid conditions. Patients with extremes in muscle mass or diet. The data above are obtained from the National Kidney Disease Education Program (NKDEP) which additionally recommends that when the eGFR is used in patients with extremes of body mass index for purposes of drug dosing, the eGFR should be multiplied by the estimated BMI. ELECTROLYT Calcium Lvl 9.0 mg/dL 8.5 - 10.5 12/29 [facility] ELECTROLYT CO2 26 meq/L 24 - 32 12/29 [facility] ELECTROLYT Creatinine 0.80 mg/dL 0.50 - 12/[address] [facility] Lvl 1.40 /2018 [facility] ELECTROLYT Sodium Lvl 141 meq/L 135 - 145 12/29 [facility] ELECTROLYT Chloride Lvl 109 meq/L 95 - 109 12/29 [facility] ELECTROLYT Potassium 3.6 meq/L 3.5 - 5.1 12/29 ES Lvl [facility] ELECTROLYT BUN 11 mg/dL 7 - 22 12/29 [facility] ELECTROLYT Glucose Lvl 145 mg/dL 70 - 99 12/29 [facility] HEMATOLOGY Eosinophils 0.1 K/CMM 0.0 - 0.5 12/29 # [facility] HEMATOLOGY Basophils # 0.0 K/CMM 0.0 - 0.2 12/29 [facility] HEMATOLOGY Monocytes # 0.5 K/CMM 0.0 - 0.8 12/29 /2018 [facility] HEMATOLOGY Lymphocytes 2.5 K/CMM 1.0 - 5.5 12/29 MH # /2018 [facility] HEMATOLOGY Neutrophils 4.4 K/CMM 1.5 - 8.1 12/29 # /2018 [facility] HEMATOLOGY Basophils 0.1 % 0.0 - 1.0 12/29 [facility] HEMATOLOGY Eosinophils 0.7 % 0.0 - 4.0 12/29 [facility] HEMATOLOGY Monocytes 6.9 % 2.0 - 12.0 12/29 /2018 [facility] HEMATOLOGY Lymphocytes 33.0 % 20.0 - 12/29 40.0 /2018 [facility] HEMATOLOGY Segs 59.3 % 45.0 - 12/29 75.0 [facility] HEMATOLOGY Platelet 319 K/CMM 133 - 450 12/29 [facility] MPV 7.3 fL 7.4 - 10.4 12/29 [facility] RDW 13.9 % 11.5 - 12/29 14.5 [facility] WBC 7.5 K/CMM 3.7 - 10.4 12/29 [facility] Hgb 12.8 g/dL 14.0 - 12/29 18.0 /2018 [facility] HEMATOLOGY Hct 39.3 % 42.0 - 12/29 54.0 /2018 [facility] RBC 4.65 M/CMM 4.70 - 12/29 6.10 [facility] MCH 27.6 pg 27.0 - 12/29 31.0 [facility] MCHC 32.6 g/dL 32.0 - 12/29 36.0 [facility] MCV 84.6 fL 80.0 - 12/29 94.0 [facility] Brain/Neck Brain/Neck Clinical Indication: Weakness - rule out av malformation. 12/29 - CTA CTA - [facility] Comparison: Prior CT study dated 10/16/2017. Read by: Ana Nicole MD Dictated Date/time: 12/29/18 18:26 Electronically Signed by: Ana Nicole MD 12/29/18 18:52 FINAL REPORT TECHNIQUE: Sequential trans-axial images of the head and neck were obtained with a multi-detector helical CT after iodinated contrast administration. Coronal and sagittal reconstructions and were obtain ed, along with 3D post-processing imaging for exam interpretation with MIP images. CONTRAST: 100 cc of IV Omnipaque contrast material was used for the exam. CT imaging performed at this location utilizes radiation dose optimization techniques which include one or more of the following: -Automated exposure control -Adjustment of the mA and/or kV according to patient size -Use of iterative reconstruction technique CT Radiation Dose DLP 1261 mGy-cm FINDINGS: CTA NECK: VASCULAR EVALUATION: The origins of the great vessels and visualized upper thoracic aortic arch are unremarkable. The origins of the vertebral arteries are unremarkable bilaterally. RIGHT The common carotid artery is widely patent. The carotid bulb region is unremarkable. The internal carotid artery origin is widely patent. The cervical internal carotid artery is widely patent. There is no significant stenosis by NASCET criteria. The right external carotid artery is unremarkable. LEFT The common carotid artery is widely patent. Small soft eccentric atheromatous plaque at the left carotid bulb without significant stenosis. The internal carotid artery origin is widely patent. The cervical internal carotid artery is widely patent. There is no significant stenosis by NASCET criteria. The left external carotid artery is unremarkable. 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 Bilateral cervical segments of the vertebral arteries are widely patent. The source images show no evidence of dissections. If there is further concern, recommend conventional angiography for complete assessment. Any reported ICA stenosis directly references the distal internal carotid diameter as the denominator for stenosis measurement. NON-VASCULAR STRUCTURES: Trace paraseptal emphysematous changes in the visualized right lung apex. Mild degenerative disc, endplate changes in the cervical spine most pronounced at C4-C5. CTA HEAD: ANTERIOR CIRCULATION: The supraclinoid, petrous, cavernous and ophthalmic segments of the internal carotid arteries are unremarkable. The A1 and A2 segments of the anterior cerebral arteries, middle cer ebral arteries and branches are unremarkable. The anterior communicating artery is unremarkable. There is no high-grade stenosis, occlusion or aneurysm. POSTERIOR CIRCULATION: Bilateral vertebral arteries, basilar artery and superior cerebellar arteries are unremarkable bilaterally. Persistent multifocal irregularity and narrowing along the bilateral P2 segments, right more than the left. The posterior inferior cerebellar arteries are unremarkable. There is no high-grade stenosis, occlusion or aneurysm. No CT evidence of arterial venous malformation. NON-CONTRAST BRAIN IMAGES: Stable acute intraparenchymal hematoma in the left insular region measuring 2.6 x 1.4 cm. Mild surrounding vasogenic edema causing [id number] mass effect on the adjacent brain parenchyma with effacement of the left lateral ventricle and stable 3 mm shift of the midline to the right. No extra-axial fluid collection. No hydrocephalus. CONTRAST ENHANCED BRAIN IMAGES: The contrast-enhanced images of the head show no abnormally enhancing lesions or arterio- venous malformation.. If there is further concern, recommend conventional angiography for complete assessment. IMPRESSION: 1. No arteriovenous malformation in the vicinity of the left insular hemorrhage. 2. Stable soft eccentric atheromatous plaque along the left carotid bulb without significant stenosis by NASCET criteria. 3. Persistent multifocal irregularity and narrowing along the bilateral P2 segments, right more than the left. No high-grade stenosis. All quantitative and qualitative measurements of the carotid arteries in the neck are performed utilizing the distal internal carotid artery for reference as per standard NASCET criteria. SL: JO Brain wo Brain wo Clinical Indication: Weakness - rule out ich; 12/29 - contrast contrast CT /2018 - [facility] Comparison: Head CT on 10/04/2017, outside head CT on 12/29/2018 at 1108 hours. Read by: Merrill Newman MD Dictated Date/time: 12/29/18 18:11 Electronically Signed by: Merrill Newman MD 12/29/18 18:24 FINAL REPORT TECHNIQUE: CT images were obtained from the foramen magnum to the vertex without the use of intravenous contrast on a multidetector CT. Coronal and sagittal reconstructions were obtained. CT imaging performed at this location utilizes radiation dose optimization techniques which include one or more of the following: -Automated exposure control -Adjustment of the mA and/or kV according to patient size -Use of iterative reconstruction technique CT Radiation Dose DLP 672 mGy-cm FINDINGS: BRAIN PARENCHYMA: Again noted is a 2.7 (AP) x 1.6 (TR) x 2.4 (CC) cm hyperdense acute hematoma within the left temporal lobe associated with moderate mass effect on the left lateral ventricle, similar to 12/29/2018 CT at 11: 08 hours. There is stable 3 mm left to right midline shift. There is mild surrounding hypodense edema. VENTRICLES: Moderate mass effect on the left lateral ventricle. The right lateral, third and fourth ventricles appear unremarkable. The basilar cisterns are normal. ORBITS, MASTOIDS AND PARANASAL SINUSES: The limited visualized orbits are unremarkable. The limited visualized paranasal sinuses are unremarkable. The mastoid air cells are clear. SKULL: There are no osseous abnormalities. If there is further concern for intracranial pathology or acute stroke, MRI of the brain may be performed for complete assessment. ---- IMPRESSION: 1. Stable 2.7 cm hyperdense acute hyperdense intraparenchymal hematoma within the left temporal lobe with moderate mass effect on the left lateral ventricle, 3 mm left to right midline shift and mild surrounding hypodense edema. ----- SL: THERESE Brain wo Brain wo EXAM: CT BRAIN WITHOUT CONTRAST 10/10 [facility] contrast contrast CT /2018 [facility] CT Center DATE: 10/10/2017 3:49 AM LOADER OPERATOR Read by: Mary Abarca Dictated Date/time: 10/10/17 11:22 Electronically Signed by: Mary Abarca 10/10/17 11:25 FINAL REPORT INDICATION: - post evd clamp COMPARISON: Brain CT dated 10/04/2017 TECHNIQUE: Routine axial CT images of the brain were obtained. Reformatted images in the sagittal and coronal plane were included. IV contrast: None. DLP: 1205 mGy-cm FINDINGS: A parenchymal hematoma in the right thalamus with surrounding vasogenic edema continues to decrease in size and attenuation. The intraventricular hemorrhage has almost completely resolved. The right fro ntal ventriculostomy terminates in the right frontal horn near the foramen of Monro. There has been interval decrease in the size of the lateral ventricles. The combined width of the atria has decreased from 57 mm on October 04 to 53 mm currently. The peripheral sulci and basal cisterns are patent. IMPRESSION: Interval decrease in the intraparenchymal and intraventricular hemorrhages. Interval decrease in the size of the the ventricular system. Brain wo Brain wo 10/04 - [facility] contrast contrast CT /2018 - [facility] CT Center EXAMINATION: CT head without contrast Read by: Thomas Mccloud MD Dictated Date/time: 10/04/17 08:45 Electronically Signed by: Thomas Mccloud MD 10/04/17 08:46 FINAL REPORT DATE: 10/04/2017 patient: Intraventricular hemorrhage. FINDINGS: Noncontrast CT images of the head are compared to an exam dated 09/30/2017. Over the interval, there has been clearance of intraventricular hemorrhage from the left lateral ventricle. Casted hemorrhage persists in the right lateral ventricle. The ventricles are decompressed by catheter entering the right frontal region with its tip near the midline. A hematoma in the right thalamus is stable in size. IMPRESSION: Slowly resolving intraventricular hemorrhage. Brain wo Brain wo CT HEAD WITHOUT CONTRAST 09/30 [facility] contrast contrast CT /2018 - Medical CT Center DATE: 09/30/2017 at 8:55 AM. Read by: Lazaro Alvarez MD Dictated Date/time: 09/30/17 10:01 Electronically Signed by: Lazaro Alvarez MD 09/30/17 10:09 FINAL REPORT COMPARISON: 09/28/2017. HISTORY: Intracranial hemorrhage. TECHNIQUE: Contiguous axial images of the brain were obtained without intravenous contrast administration. Sagittal and coronal reformatted images were also provided. DLP: 1168.55 mGy-cm. FINDINGS: Since the most recent prior study a right transfrontal ventriculostomy has been placed traversing the right frontal horn with the catheter tip ending near the foramen of Monro. There is been interval decompression of the lateral ventricles. Again noted is a parenchymal hematoma within the right thalamus with intraventricular extension. The hematoma measures approximately 3.2 x 2.8 x 1.7 cm, not significantly changed from the prior study. I ntraventricular blood is noted within all 4 ventricles. There are no acute infarcts. The martinez-white interfaces are well defined. There are no extra-axial collections. IMPRESSION: 1. Interval placement of right transfrontal ventriculostomy with decompression of the ventricular system. 2. Stable 3.2 x 2.8 x 1.7 cm parenchymal hemorrhage within the right thalamus with intraventricular extension. Brain/Neck Brain/Neck EXAM: CT ANGIOGRAM OF THE HEAD 09/28 - [facility] CTA CTA /2017 - Medical EXAM: CT ANGIOGRAM OF THE NECK Center Read by: Juan Munoz MD Dictated Date/time: 09/28/17 23:08 DATE: 09/28/2017 923 PM LOADER OPERATOR Electronically Signed by: Juan Munoz MD 09/28/17 23:18 FINAL REPORT INDICATION: 37 years old Male patient with history of right thalamic hematoma. TECHNIQUE: Rapid acquisition spiral CT images of the neck were obtained between the aortic arch and the skull base during intravenous infusion of iodinated contrast for the purposes of CT angiography. 3 -D CT angiographic images are created using MIP technique at the acquisition workstation. The source images are also presented for interpretation. COMPARISON: Prior CT Scan of the Head, C-Spine, dated 09/28/2017 FINDINGS: CT ANGIOGRAM OF THE NECK: AORTIC ARCH: Left sided aortic arch. Great vessels originate from the aortic arch in the standard configuration. Origins of the great vessels appear patent without hemodynamically significant stenosis. CERVICAL CAROTID ARTERIES: RIGHT: Common carotid artery has a normal course without hemodynamically significant stenosis. Common carotid artery bifurcates at level of C4-C5. There are no significant atherosclerotic plaques without hemodynamically significant stenosis at the carotid bifurcation/carotid bulb. Remaining cervical internal carotid artery has a normal course and contour without hemodynamically significant stenosis. There is no definite evidence of vascular injury or aneurysm. LEFT: Common carotid artery has a normal course without hemodynamically significant stenosis. Common carotid artery bifurcates at level of C4-C5. There are mild noncalcified atherosclerotic plaques without hemodynamically significant stenosis at the carotid bifurcation/carotid bulb. Remaining cervical internal carotid artery has a normal course a nd contour without hemodynamically significant stenosis. There is no definite evidence of vascular injury or aneurysm. CERVICAL VERTEBRAL ARTERIES: Codominant vertebral arteries. RIGHT: Originates from right subclavian artery.. No hemodynamically significant stenosis at origin. It enters the vertebral foramina at level of C6. It has a normal caliber without hemodynamically signi ficant stenosis. Note is made of fenestration in the distal V2 segment at the level of C2-C3. LEFT: Originates from left subclavian artery.. No hemodynamically significant stenosis at origin. It enters the vertebral foramina at level of C6. It has a normal caliber without hemodynamically significant stenosis. CT ANGIOGRAM OF THE HEAD: ANTERIOR CIRCULATION: Right Internal Carotid Artery: Petrous, Laceral, Cavernous, Clinoid, Ophthalmic and Communicating segment appear normal in caliber and contour. No hemodynamically significant stenosis is present. Left Internal Carotid Artery: Petrous, Laceral, Cavernous, Clinoid, Ophthalmic and Communicating segment appear normal in caliber and contour. No hemodynamically significant stenosis is present. Anterior Cerebral Arteries: Anterior cerebral arteries appear widely patent without hemodynamically significant stenosis. Middle Cerebral Arteries: Middle cerebral arteries appear widely patent without hemodynamically significant stenosis. POSTERIOR CIRCULATION/VERTEBROBASILAR SYSTEM: Codominant vertebral arteries. Intracranial vertebral arteries (V4 segments ) appear widely patent without hemodynamically significant stenosis. Basilar artery appears widely patent without hemodynamically significant stenosis. Bilateral posterior communicating arteries are noted. Note is made of multifocal luminal narrowing in right P-comm and right proximal TELEVISION PROGRAM DIRECTOR. Mild focal luminal narrowing within the left P-comm and proxima l P2. Visualized distal posterior cerebral arteries appear widely patent without hemodynamically significant stenosis. VENOUS SYSTEM: Poorly opacified due to contrast bolus timing. EXTRAVASCULAR FINDINGS: Visualized lung apices are clear. Thyroid gland appears unremarkable. No definite mass lesion is seen within neck. Airway is widely patent. Vertebral alignment of the cervical spine is anatomic. Multilevel mild degenerative changes within cervical spine, most pronounced at C4-C5. Please refer to detailed report of the CT scan of the head for non- vascular intracranial findings IMPRESSION: 1. No definite vascular abnormality in the vicinity of right thalamic hematoma. 2. Multifocal luminal narrowing in right P-comm and right proximal TELEVISION PROGRAM DIRECTOR. Visualized distal posterior cerebral arteries appear widely patent without hemodynamically significant stenosis. 3. Mild noncalcified atherosclerotic plaque within the left carotid bulb. All quantitative and qualitative measurements of the carotid arteries in the neck are performed utilizing the distal internal carotid artery for reference as per standard NASCET criteria. Brain wo Brain wo EXAM: CT BRAIN WITHOUT CONTRAST 09/28 - [facility] contrast contrast CT /2017 - [facility] CT Center DATE: 09/28/2017 6:12 PM LOADER OPERATOR Read by: Maurice Dickinson Dictated Date/time: 09/28/17 18:55 Electronically Signed by: Maurice Dickinson 09/28/17 19:01 FINAL REPORT INDICATION: - Rt thalamic ICH with IVh and hydro COMPARISON: CT head from 09/28/2017 at 0:00 hours and 1226 hours TECHNIQUE: Routine axial CT images of the brain were obtained IV contrast: None. FINDINGS: Again identified, there is a right thalamic parenchymal hematoma which has intraventricular spread. Since the previous examination, the size of the hematoma has been slightly reduced. The amount of intr aventricular hemorrhage remains and the temporal horns of the lateral ventricles are again dilated consistent with early ventricular dilation. The perimesencephalic cisterns are effaced which could be related to uncal transtentorial herniation. The martinez-white matter differentiation is preserved. Diffusely the sulci are effaced due to mass effect. IMPRESSION: In the interval, there has been slow reduction in size of the right thalamic parenchymal hematoma. Intraventricular extension is again seen and the lateral ventricles are slowly increasing in size. Chest Chest 1view EXAM: XR CHEST 1 VIEW 09/28 - [facility] 1view DX DX /2018 - Medical This report was dictated by a Um Nurse/Fellow. I have personally reviewed the images as Center well as the Resident's interpretation and agree with the findings. DATE: 09/28/2017 12:22 PM LOADER OPERATOR Read by: Lupillo Beauchamp MD Resident: Lupillo Beauchamp MD Dictated Date/time: 09/28/17 13:11 Electronically Signed by: Scott Phan MD 09/28/17 13:21 FINAL REPORT INDICATION: - stroke COMPARISON: CT cervical spine September 28, 2017. TECHNIQUE: AP chest UT SECTION: ER FINDINGS: Lines, tubes and hardware: Cardiac leads seen projecting over the chest and abdomen. Lungs and pleura: Lung volumes are slightly low. Pulmonary vascularity and central interstitial markings are mildly prominent. Heart and mediastinum: The heart size is normal for technique. The mediastinal contours are normal. Bones: No acute bony abnormality is identified. IMPRESSION: Bronchovascular congestion, at least in part related to low lung volumes. Mild central neurogenic pulmonary edema may also be present. Brain-Outs Brain-Outsid CT HEAD WITHOUT CONTRAST OUTSIDE CONSULT 09/28 - [facility] jerica e Consult CT /2017 - Medical Consult CT Center DATE: 09/28/2017 at 10:21 AM. Read by: Lazaro Alvarez MD Dictated Date/time: 09/28/17 14:10 Electronically Signed by: Lazaro Alvarez MD 09/28/17 14:12 FINAL REPORT HISTORY: - hemorrhagic stroke transfer. TECHNIQUE: Outside imaging from [facility] is submitted for interpretation. The study consists of axial images of the brain obtained without intravenous contrast administration. FINDINGS: There is a 3.2 x 2.8 x 1.7 cm parenchymal hematoma within the right thalamus with intraventricular extension. Intraventricular blood is noted within all 4 ventricles, more prominent on the right. There is mild dilatation of the temporal horns consistent with mild hydrocephalus. There is effacement of the sulci over the convexities, a combination of mild hydrocephalus and robust brain volume. There are no acute infarcts. The martinez-white interfaces are well defined. There are no extra-axial collections. There are no acute bony abnormalities. The calvarium is intact. IMPRESSION: 1. 3.2 x 2.8 x 1.7 cm parenchymal hemorrhage within the right thalamus with intraventricular extension. 2. Mild hydrocephalus. Concur with outside interpretation. Spine-Outs Spine-Outsid CT CERVICAL SPINE OUTSIDE CONSULT 09/28 - [facility] jerica e Consult CT /2018 - Medical Consult CT Center DATE: 09/28/2017 at 10:18 AM. Read by: Lazaro Alvarez MD Dictated Date/time: 09/28/17 12:56 Electronically Signed by: Lazaro Alvarez MD 09/28/17 13:03 FINAL REPORT COMPARISON: None. HISTORY: Altered mental status, unknown trauma. TECHNIQUE: Outside imaging from [facility]. Axial images were obtained at 2 mm intervals in the unenhanced mode. Sagittal and coronal reformatted images were also provided. DLP: 568.1 mGy-cm. Findings: The cervical vertebrae are intact and in normal anatomic alignment. There are no acute fractures, subluxations, or dislocations. The prevertebral soft tissues follow normal anatomic contour. There is central disc osteophyte complex at C4-C5 causing moderate stenosis of the spinal canal. The remainder the intervertebral discs are well-maintained. There are no other disc bulges or disc protrusions. IMPRESSION: 1. No acute cervical injury. 2. Central disc osteophyte complex at C4-C5 causing moderate stenosis of the spinal canal. Concur with outside interpretation. Brain wo Brain wo CT HEAD WITHOUT CONTRAST 09/28 - [facility] contrast contrast CT /2018 - Medical CT Center DATE: 09/28/2017 at 12:26 PM. Read by: Lazaro Alvarez MD Dictated Date/time: 09/28/17 12:30 Electronically Signed by: Lazaro Alvarez MD 09/28/17 12:43 FINAL REPORT COMPARISON: Outside imaging from [facility] 09/28/2017 at 10:21 AM. HISTORY: - hemorrhagic stroke transfer. TECHNIQUE: Contiguous axial images of the brain were obtained without intravenous contrast administration. Sagittal and coronal reformatted images were also provided. DLP: 982.0 mGy-cm. FINDINGS: Again noted is a parenchymal hematoma within the right thalamus with intraventricular extension. The hematoma measures approximately 3.2 x 2.8 x 1.7 cm, not significantly changed from the prior study. I ntraventricular blood is noted within all 4 ventricles. There is mild dilatation of the temporal horns consistent with mild hydrocephalus. There is effacement of the sulci over the convexities, a combin ation of mild hydrocephalus and robust brain volume. There are no acute infarcts. The martinez-white interfaces are well defined. There are no extra-axial collections. There are no acute bony abnormalities. The calvarium is intact. IMPRESSION: 1. Stable exam. There is no significant change from the outside study of 2 hours earlier. 2. Stable 3.2 x 2.8 x 1.7 cm parenchymal hemorrhage within the right thalamus with intraventricular extension. 3. Mild hydrocephalus. Vital Signs Vital Sign Value Date Comments Source Systolic (mm Hg) 160 12/31/2018 [facility] Diastolic (mm Hg) 92 12/31/2018 [facility] Respitory Rate 18 12/31/2018 [facility] Heart Rate 67 12/31/2018 [facility] Temperature Oral (F) 98.3 F 12/31/2018 [facility] Respitory Rate 18 12/31/2018 [facility] Systolic (mm Hg) 139 12/31/2018 [facility] Diastolic (mm Hg) 74 12/31/2018 [facility] Temperature Oral (F) 97.9 F 12/31/2018 [facility] Heart Rate 57 12/31/2018 [facility] Respitory Rate 18 12/31/2018 [facility] Heart Rate 74 12/31/2018 [facility] Temperature Oral (F) 98 F 12/31/2018 [facility] Systolic (mm Hg) 150 12/31/2018 [facility] Diastolic (mm Hg) 72 12/31/2018 [facility] Height 187.96 cm 12/29/2018 [facility] Weight 118 12/29/2018 [facility] BMI Calculated 33.4 12/29/2018 [facility] Encounters Location Location Encounter Encounter Reason Attending ADM DC Status Source Details Type Number For Provider Date Date Visit MNA Phone [id number] 10/22 10/24 [facility] Message /2017 [facility] Phone [id number] 10/28 10/30 [facility] Message /2017 [facility] Ambulatory [id number] TRAUMA 11/04 11/04 [facility] Pre-Reg VISIT /2017 [facility] [id number] Non 12/29 12/29 NAKITA Domínguez Physician /2017 [facility] [id number] Jose Elias 12/29 12/31 NAKITA Mcnulty /2018 [facility] MNA Phone [id number] 01/10 01/12 [facility] Message /2018 [facility] Outpatient [id number] Beni-Sylvia 01/27 [facility] Ambulatory [id number] Beni-Sylvia 01/27 01/27 [facility] Pre-Reg [facility] /2018 [facility] Procedures Procedure Code Date Perfomer Comments Source
--- OUTSIDE RECORDS SUMMARY | 2019-02-08 10:40 | XMS REPORT | Summary of Care ---
:1980 Author Organization [facility] Address [address] [place] [address], [address] [place] [address]- Encounter HQ Albarontr_mars(FIN) [id number] Date(s): 01/27/19 - 01/27/[address] [place] [address]- [phone] Attending Physician: Amanda Richards MD Referring Physician: Amanda Richards MD Vital Signs No data available for this section Problem List Condition Effective Dates Status Health Status Informant Diabetes(Confirmed) Active Diabetes(Confirmed) Resolved Dysphagia(Confirmed) Active HTN (hypertension)(Confirmed) Active Allergies, Adverse Reactions, Alerts No Known Medication Allergies Medications No data available for this section Results No data available for this section Immunizations No data available for this section [...] pack/day; entered on: 12/29/18 Assessment and Plan No data available for this section
--- OUTSIDE RECORDS SUMMARY | 2019-02-08 10:41 | XMS REPORT | Summary of Care ---
:1980 Author Organization [facility] Address [address], [place] [address]- Encounter HQ Raheemr_mars(FIN) [id number] Date(s): 12/29/17 - 12/29/[address] [address] [place] Attending Physician: Physician, Non Associated MD Admitting Physician: Physician, Non Associated MD Vital Signs No data available for this section Problem List Condition Effective Dates Status Health Status Informant Diabetes(Confirmed) Active Diabetes(Confirmed) Resolved Dysphagia(Confirmed) Active HTN (hypertension)(Confirmed) Active HTN (hypertension)(Confirmed) Resolved Allergies, Adverse Reactions, Alerts Substance Reaction Severity Status NKDA Active Medications No data available for this section [...] Other Tobacco Frequency 1 pack/day; entered on: 09/28/17 Assessment and Plan No data available for this section
--- OUTSIDE RECORDS SUMMARY | 2019-02-08 10:41 | XMS REPORT | Summary of Care ---
:1980 Author Organization [facility] Neuro[place] [facility] [place] Address [address] [place] [address], [address] [place] [address]- Encounter HQ Encntr_alias(FIN) [id number] Date(s): 10/28/17 - 10/29/17 [facility] [address] [place] [address], [address] [place] [address] [phone] Vital Signs No data available for this [...]
--- OUTSIDE RECORDS SUMMARY | 2019-02-08 10:41 | XMS REPORT | Summary of Care ---
:1980 Author Organization [facility] [place] [facility] Address [address] [place] [address], [address] [place] [address]- Encounter HQ Encntr_alias(FIN) [id number] Date(s): 11/04/17 - 11/04/17 [facility] [address] [place] [address], [address] [place] [address] [phone] Attending Physician: VISIT, [facility] Vital Signs No data available for this [...]
--- OUTSIDE RECORDS SUMMARY | 2019-02-08 10:41 | XMS REPORT | Summary of Care ---
:1980 Author Organization [facility] Neurosurgery [facility] [place] Address [address] [place] [address], [address] [place] [address]- Encounter HQ Encntr_alias(FIN) [id number] Date(s): 10/22/17 - 10/23/17 [facility] [address] [place] [address], [address] [place] [address] [phone] Vital Signs No data available for this [...]
--- OUTSIDE RECORDS SUMMARY | 2019-02-08 10:41 | XMS REPORT | Summary of Care ---
:1980 Author Organization [facility] Address [address] [place] [address], [address] [place] [address]- Encounter HQ Encntr_alias(FIN) [id number] Date(s): 01/10/19 - 01/11/[address] [place] [address]- [phone] Vital Signs No data available for this [...]
--- OUTSIDE RECORDS SUMMARY | 2019-02-08 10:41 | XMS REPORT ---
:1980 Author Organization [facility] Address [address] [place] [address] Care Team Providers Name Role Phone Unavailable Unavailable Unavailable Problems This patient has no known problems. Allergies, Adverse Reactions, Alerts This patient has no known allergies or adverse reactions. Medications This patient has no known medications. Encounters Start End Encounter Admission Attending Care Care Encounter Date/Time Date/Time Type Type Clinicians Facility Department ID 2018-12-29 Inpatient [facility] [id number] 14:18:00
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
[2019-02-08] MEDS ORDERED: GABAPENTIN 300 MG CAP ONE (11:50)
== END 2019-02-08 11:46 | disposition home or self-care (01) ==
LOC: ER 10:36
DX: G62.9 Polyneuropathy, unspecified (principal); E11.9 Type 2 diabetes mellitus without complications; I10 Essential (primary) hypertension; Z86.73 Personal history of transient ischemic attack (TIA), and cerebral infarction without residual deficits
CPT/HCPCS: 99283

== ENCOUNTER 2020-08-05 12:08 | Emergency (ER) | payer OTHER, SELFPAY ==
--- OUTSIDE RECORDS SUMMARY | 2020-08-05 12:34 | XMS REPORT | Continuity of Care Document ---
:1980 Author Organization [employer] Information [employer] Care Team Providers Name Role Phone [employer] Information [employer] Unavailable Un available Problems Problem Status Onset Classification Date Comments Sourc e Date Reported HEMORRHAGIC Active 12/30/19 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, disorder, [facility] systemic Center, arterial [facility] (disorder) NONTRAUMATIC Active [facility] INTRACEREBRAL Center HEMORRHAGE, U ILLNESS, Active [facility] UNSPECIFIED Medications Medication Details Route Status Patient Ordering Order Source Instructions Provider Date carvedilol 12.5 mg 12.5 mg = 1 Active H oral tablet tab, PO, 2018 [facility] Q12H, # 60 tab, 0 Refill(s) lisinopril 30 mg 30 mg = 1 Active oral tablet tab, PO, 2018 [facility] Daily, # 30 tab, 0 Refill(s) Lisinopril Notes: (Same Inactive as: Prinivil, 2018 [facility] Zestril) Hydrochlorothiazide 1 tab, Route: No Longer 12.5 MG / PO, Drug Active 2018 [facility] Lisinopril 20 MG Form: TAB, Oral Tablet Dosing Weight 118, kg, Daily, Start date: 12/31/18 9:00:00 CDT, Duration: 30 day, Stop date: 01/29/19 9:00:00 CDT Insulin Lispro Notes: (Same No Longer as: Humalog ) Active 2018 [facility] Roll in palms of hands gently; Do not shake `vigorously. "Single Patient Use Only " WASTE: F/P - Black; E - Municipal Trash Bin Stable for 28 days at room temperature. Expires in days from _Date Dextrose 50% 25 gm, 50 mL, No Longer Syringe Route: IVP, Active 2018 [facility] Drug Form: INJ, Dosing Weight 118, kg, PRN, PRN Blood Glucose Results, Start date: 12/30/18 23:44:00 CDT, Duration: 30 day, Stop date: 01/29/19 23:43:00 CDT Glucagon 1 mg, Route: No Longer IM, Drug Active 2018 [facility] form: PDR/INJ, PRN, Dosing Weight 118, kg, PRN Blood Glucose Results, Start date: 12/30/18 23:44:00 CDT, Duration: 30 day, Stop date: 01/29/19 23:43:00 CDT Lovenox Notes: (Same No Longer as: Lovenox) Active 2018 [facility] insulin, isophane Notes: Roll No Longer in palms of Active 2018 [facility] hands gently; Do not shake vigorously. (Same as: Humulin N) Do not hold insulin without contacting prescriber WASTE: F/P - Black; E - Municipal Trash Bin Stable for 28 days at room temperature Expires in days from _Date heparin Notes: No Longer porcine Active 2018 [facility] heparin Docusate Notes: (Same No Longer as: Colace) Active 2018 [facility] (Do Not Crush) Lisinopril Notes: (Same No Longer as: Prinivil, Active 2018 [facility] Zestril) Coreg Notes: Give No Longer with food. Active 2018 [facility] (Same As: Coreg) sennosides, FCI 8.6 Notes: (Same No Longer 12/30 MG Oral Tablet as: Senokot) Active 2018 [place] Saline Flush 0.9% Notes: Same No Longer as: BD Active 2018 [facility] Posiflush Sterile Sodium Chloride 250 mL, No Longer 0.9% IV Route: IVPB, [facility] 2018 [facility] Start date: 12/29/18 17:46:00 CDT, Duration: 30 day, Stop date: 01/28/19 17:45:00 CDT, PRN Line Flush BD Normal Saline Notes: Same Inactive Flush as: BD 2018 [facility] Posiflush Sterile Omnipaque 350 Notes: (same Inactive injectable solution as:Omnipaque 2018 [facility] 350). WASTE: F/P - Black; E - Municipal Trash Bin Isolyte S PH 7.4 Notes: (Same Inactive H 1,000 mL as: Isolyte S 2018 [facility] PH 7.4) Insulin Lispro Notes: (Same No Longer as: Humalog ) 2018 [facility] Roll in palms of hands gently; Do not shake `vigorously. "Single Patient Use Only " WASTE: F/P - Black; E - Municipal Trash Bin Stable for 28 days at room temperature. Expires in days from _Date Glucagon 1 mg, Route: No Longer IM, Drug Active 2018 [facility] form: PDR/INJ, PRN, Dosing Weight 118, kg, PRN Blood Glucose Results, Start date: 12/29/18 16:04:00 CDT, Duration: 30 day, Stop date: 01/28/19 16:03:00 CDT Dextrose 50% 25 gm, 50 mL, No Longer Syringe Route: IVP, 2018 [facility] Drug Form: INJ, Dosing Weight 118, kg, PRN, PRN Blood Glucose Results, Start date: 12/29/18 16:04:00 CDT, Duration: 30 day, Stop date: 01/28/19 16:03:00 CDT potassium phosphate Notes: (Same No Longer 12/29 as: K Active 2018 [facility] Phosphate.) Do not infuse phosphorous concurrently in the same line as TPN or IVF that contains calcium. For double lumen central lines, phosphorous may be infused in a separate lumen from TPN. 1 mMol phoshate has 1.47 mEq potassium Infuse over 4 hours Calcium Carbonate Notes: (Same No Longer 500 MG Chewable As: Tums) Active 2018 [facility] est Tablet Calcium Carbonate 500 mg = 200 mg elemental calcium Dose = mg calcium carbonate ( mg elemental calcium) Calcium Gluconate Notes: WASTE: No Longer F/P - Sink; E Active 2018 [facility] Trash Bin Magnesium Oxide Notes: (Same No Longer 12/29/ H as: Mag-Ox Active 2018 [facility] 400) Magnesium oxide [id number] elemental magnesium Dose=____mg magnesium oxide (___mg elemental magnesium) Magnesium Sulfate Notes: WASTE: No Longer F/P - Sink; E Active 2018 [facility] Trash Bin potassium Notes: (Same No Longer phosphate-sodium as: Phos-NaK) Active [place] phosphate 250 Each 1.5 gm mg-280 mg-160 mg pkt has 250mg oral powder for phosphorous. reconstitution Mix w/2.5oz water and stir. sodium phosphate Notes: Infuse No Longer over 4 hour. 2018 [facility] Do not infuse phosphorous concurrently in the same line as TPN or IVF that contains calcium. For double lumen central lines, phosphorous may be infused in a separate lumen from TPN. Potassium Chloride Notes: (Same No Longer as: K-Dur 20) 2018 [facility] "Do Not Crush" Give with food and full glass of water For patients unable to swallow tablet, dissolve in one half glass of water. Allow about 2 minutes for the tablets to disintegrate. Stir before giving to prepare slurry and administer. Please exclude Patient&#[id number] ;s with feeding tube less than 14 Telugu (Dobhoff, J-tube etc) and pediatric and patients. Cardene 40 mg in NS Notes: Same No Longer 200 mL (Titrate.) as: Cardene Active 2018 [facility] IV 40 mg Concentration : (0.2 mg /1 ml ) Saline Flush 0.9% Notes: Same No Longer as: BD Active 2018 [facility] Posiflush Sterile Acetaminophen Notes: Do not No Longer exceed 4 2018 [facility] gm/day. (Same as: Tylenol) Labetalol Notes: (Same No Longer as: 2018 [facility] Normodyne, Trandate) Push over 2 minutes Give bolus over 2-3 minutes. enalapril Notes: (Same No Longer as: Active 2018 [facility] Vasotec-IV) Sodium Chloride 1,000 mL, Inactive 0.9% IV 1,000 mL Rate: 75 2019 [place] ml/hr, Infuse over: 13.3 hr, Route: IV, Dosing Weight 127.4 kg, Total Volume: 1,000, Start date: 12/29/18 14:56:00 CDT, Duration: 30 day, Stop date: 01/28/19 14:55:00 CDT, 2.61, m2 Allergies, Adverse Reactions, Alerts Substance Category Reaction Severity Reaction Status Date Comments S ource type Reported No Known Assertion Drug Misch er Medication allergy Neuro Allergies Immunizations No Data Provided for This Section Results Order Name Results Value Reference Date Interpretation Comments Rajani rce Range CHEM PANEL Phosphorus 2.7 2.5 - 4.5 12/30 [facility] CHEM PANEL Magnesium 2.1 1.8 - 2.4 12/30 [facility] CHEM PANEL Calcium Lvl 9.0 8.5 - 10.5 12/30 [facility] CHEM PANEL CO2 27 24 - 32 12/30 [facility] CHEM PANEL BUN 11 7 - 22 12/30 [facility] CHEM PANEL Sodium Lvl 141 135 - 145 12/30 [facility] CHEM PANEL Potassium 3.5 3.5 - 5.1 12/30 [facility] CHEM PANEL Chloride Lvl 109 95 - 109 12/30 [facility] CHEM PANEL Glucose Lvl 150 70 - 99 12/30 [facility] CHEM PANEL eGFR 129 12/30 Result Comment: The [facility] eGFR is calculated using the CKD-EPI formula. In most young, healthy individuals the eGFR will be >90 mL/min/1.73m2 . The eGFR declines with age. An eGFR of 60-89 may be normal in some populations, particularly the elderly, for whom the CKD-EPI formula has not been extensively validated. Use of the eGFR is not recommended in the following populations:< br/>
Kae viduals with unstable creatinine concentration s, including patients and those with serious co-morbid conditions.<b r/>
Patie nts with extremes in muscle mass or diet.

The data above are obtained from the National Kidney Disease Education Program (NKDEP) which additionally recommends that when the eGFR is used in patients with extremes of body mass index for purposes of drug dosing, the eGFR should be multiplied by the estimated BMI. CHEM PANEL Creatinine 0.80 0.50 - 04/05 Lvl 1.40 /2019 [facility] CHEM PANEL AGAP 8.5 10.0 - 04/05 MH 20.0 /2018 [facility] HEMATOLOGY Eosinophils 1.9 0.0 - 4.0 04/05 MH /2018 [facility] HEMATOLOGY Basophils 0.4 0.0 - 1.0 04/05 MH /2018 [facility] HEMATOLOGY Segs 54.4 45.0 - 04/05 MH 75.0 /2019 [facility] HEMATOLOGY Neutrophils 3.4 1.5 - 8.1 04/05 MH # /2019 [facility] HEMATOLOGY Eosinophils 0.1 0.0 - 0.5 04/05 MH # /2019 [facility] HEMATOLOGY Monocytes # 0.5 0.0 - 0.8 04/ /2018 [facility] HEMATOLOGY Lymphocytes 2.2 1.0 - 5.5 04/05 MH # /2019 [facility] HEMATOLOGY Lymphocytes 35.3 20.0 - 04/05 MH 40.0 /2019 [facility] HEMATOLOGY Monocytes 8.0 2.0 - 12.0 04/ MH /2018 [facility] HEMATOLOGY Platelet 269 133 - 450 04/ /2018 [facility] HEMATOLOGY RDW 14.1 11.5 - 04/05 MH 14.5 /2018 [facility] HEMATOLOGY MCV 84.0 80.0 - 04/05 MH 94.0 /2019 [facility] HEMATOLOGY MCH 27.6 27.0 - 04/05 MH 31.0 /2018 [facility] HEMATOLOGY MCHC 32.8 32.0 - 04/05 MH 36.0 /2019 [facility] HEMATOLOGY MPV 7.6 7.4 - 10.4 04/05 MH /2018 [facility] HEMATOLOGY WBC 6.2 3.7 - 10.4 04/05 MH /2018 [facility] HEMATOLOGY RBC 4.44 4.70 - 04/05 MH 6.10 /2018 [facility] HEMATOLOGY Hgb 12.2 14.0 - 04/05 MH 18.0 /2019 [facility] HEMATOLOGY Hct 37.3 42.0 - 04/05 MH 54.0 /2019 [facility] PARATHYROID Ca Norm WB 1.17 1.05 - 0405 PROFILE 1. [facility] PARATHYROID Ca Ion WB 1.17 1.05 - 0405 PROFILE 1. [facility] LIPIDS VLDL 20 12/29 MH /2018 [facility] LIPIDS LDL 96 <=99 mg/dL 12/29 MH (Calculated) [facility] LIPIDS Trig 98 <=149 12/29 MH mg/dL [facility] LIPIDS Chol 176 <=199 12/29 mg/dL [facility] LIPIDS HDL 60 >=61 mg/dL 12/29 [facility] LIPIDS CHD Risk 2.93 4.00 - 12/29 7.30 [facility] SPECIAL Hgb A1C 6.9 <=5.6 % 12/29 CHEMISTRY [facility] BACTERIAL - MRSA by PCR Negative 12/29 SEROLOGY (12/29/18 3:59 PM) [facility] est ELECTROLYTE AGAP 9.6 10.0 - 12/29 S 20. [facility] ELECTROLYTE eGFR 129 12/29 Result Comment: The [facility] eGFR is calculated using the CKD-EPI formula. In most young, healthy individuals the eGFR will be >90 mL/min/1.73m2 . The eGFR declines with age. An eGFR of 60-89 may be normal in some populations, particularly the elderly, for whom the CKD-EPI formula has not been extensively validated. Use of the eGFR is not recommended in the following populations:< br/>
Kae viduals with unstable creatinine concentration s, including patients and those with serious co-morbid conditions.<b r/>
Patie nts with extremes in muscle mass or diet.

The data above are obtained from the National Kidney Disease Education Program (NKDEP) which additionally recommends that when the eGFR is used in patients with extremes of body mass index for purposes of drug dosing, the eGFR should be multiplied by the estimated BMI. ELECTROLYTE Calcium Lvl 9.0 8.5 - 10.5 12/29 S [facility] ELECTROLYTE CO2 26 24 - 32 12/29 MH S [facility] ELECTROLYTE Creatinine 0.80 0.50 - 12/29 S Lvl 1.40 [facility] ELECTROLYTE Sodium Lvl 141 135 - 145 12/29 MH S [facility] ELECTROLYTE Chloride Lvl 109 95 - 109 12/29 S [facility] ELECTROLYTE Potassium 3.6 3.5 - 5.1 12/29 S Lvl [facility] ELECTROLYTE BUN 11 7 - 22 12/29 S /2018 [facility] ELECTROLYTE Glucose Lvl 145 70 - 99 12/29 S [facility] HEMATOLOGY Eosinophils 0.1 0.0 - 0.5 12/29 # /2018 [facility] HEMATOLOGY Basophils # 0.0 0.0 - 0.2 12/29 [facility] HEMATOLOGY Monocytes # 0.5 0.0 - 0.8 12/29 [facility] HEMATOLOGY Lymphocytes 2.5 1.0 - 5.5 12/29 # /2018 [facility] HEMATOLOGY Neutrophils 4.4 1.5 - 8.1 12/29 # /2018 [facility] HEMATOLOGY Basophils 0.1 0.0 - 1.0 12/29 [facility] HEMATOLOGY Eosinophils 0.7 0.0 - 4.0 12/29 [facility] HEMATOLOGY Monocytes 6.9 2.0 - 12.0 12/29 [facility] HEMATOLOGY Lymphocytes 33.0 20.0 - 12/29 40.0 /2018 [facility] HEMATOLOGY Segs 59.3 45.0 - 12/29 75.0 [facility] HEMATOLOGY Platelet 319 133 - 450 12/29 [facility] HEMATOLOGY MPV 7.3 7.4 - 10.4 12/29 [facility] HEMATOLOGY RDW 13.9 11.5 - 12/29 14.5 /2018 [facility] HEMATOLOGY WBC 7.5 3.7 - 10.4 12/29 [facility] HEMATOLOGY Hgb 12.8 14.0 - 12/29 18.0 [facility] Hct 39.3 42.0 - 12/29 54.0 /2018 [facility] HEMATOLOGY RBC 4.65 4.70 - 12/29 6.10 /2018 [facility] HEMATOLOGY MCH 27.6 27.0 - 12/29 31.0 [facility] HEMATOLOGY MCHC 32.6 32.0 - 12/29 36.0 /2018 [facility] HEMATOLOGY MCV 84.6 80.0 - 12/29 94.0 /2019 [facility] Pathology Reports No Data Provided for This Section Diagnostic Reports Report Value Date Source Brain wo contrast CT Clinical Indication: - foll ow up; intracranial hemorrhage, weakness. 12/30/2018 [facility] Comparison: Head CT on 12/29/2018 at 1745 hours TECHNIQUE: CT images were ob tained from the foramen magnum to the vertex without the use of intravenous contrast on a multidetector CT. Coronal and sagittal reconstructions were obtained. CT imaging performed at this location utilizes radiation dose optimization techniques which include one or more of the following: -Automated exposure control -Adjustment of the mA and/or kV according to pat ient size -Use of iterative reconstruction technique CT [...] basilar cisterns are normal. ORBITS, MASTOIDS AND PARANAS AL SINUSES: The limited visualized orbits are unremarkable. [...] Slight increase in size of mild surrounding h ypodense edema. ----- SL: EMIDIA-M Brain wo contrast CT Clinical Indication: Weakness - rule out ic h; 12/29/2018 [facility] Comparison: Head CT on 10/04, outside head CT on 12/29/2018 at 1108 hours. TECHNIQUE: CT images were ob tained from the foramen magnum to the vertex without the use of intravenous contrast on a multidetector CT. Coronal and sagittal reconstructions were obtained. CT imaging performed at this location utilizes radiation dose optimization techniques which include one or more of the following: -Automated exposure control -Adjustment of the mA and/or kV according to pat ient size -Use of iterative reconstruction technique CT Radiation Dose DLP 672 mGy-cm FINDINGS: BRAIN PARENCHYMA: Again noted is a 2.7 (AP) x 1.6 (TR) x 2.4 (CC) cm hyperdense acute hematoma within the left temporal lobe associated with moderate mass effect on the left lateral ventricle, similar to 12/29/2018 CT at 11: 08 hours. There is stab le 3 mm left to right midline shift. There is mild surrounding hypodense edema. VENTRICLES: Moderate mass ef fect on the left lateral ventricle. The right lateral, third and fourth ventricles appear unremarkable. The basilar cisterns are normal. ORBITS, MASTOIDS AND PARANAS AL SINUSES: The limited visualized orbits are unremarkable. [...] and mild surrounding hypodense edema. ----- SL: EMIDIA-M Brain/Neck CTA Clinical Indication: Weakness - rule out av malformation. 12/29/2018 [facility] Comparison: Prior CT study dated 10/16/2017. TECHNIQUE: Sequential trans- axial images of the head and neck were obtained with a multi-detector helical CT after iodinated contrast administration. Coronal and sagittal reconstructions and were obtain ed, along with 3D post-proce ssing imaging for exam interpretation with MIP images. CONTRAST: 100 cc of IV Omnipaque contrast materi al was used for the exam. CT imaging performed at this location utilizes radiation dose optimization techniques which include one or more of the following: -Automated exposure control -Adjustment of the mA and/or kV according to pat ient size -Use of iterative reconstruction technique CT Radiation Dose DLP 1261 mGy-cm FINDINGS: CTA NECK: VASCULAR EVALUATION: The origins of the great ves sels and visualized upper thoracic aortic arch are unremarkable. The origins of the vertebral arteries are unremarkable bilaterally. RIGHT The common carotid artery is widely patent. The carotid bulb region is unremarkable. The internal carotid artery origin is widely pat ent. The cervical internal carotid artery is widely p atent. There is no significant stenosis by NASCET crite adriel. The right external carotid artery is unremarkabl e. LEFT The common carotid artery is widely patent. Small soft eccentric atherom atous plaque at the left carotid bulb without significant stenosis. The internal carotid artery origin is widely pat ent. The cervical internal carotid artery is widely p atent. There is no significant stenosis by NASCET crite adriel. The left external carotid artery is unremarkable . 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 Bilateral cervical segments of the vertebral arteries are widely patent. The source images show no evidence of dissections. If there is further concern, recommend conventional angiography for complete assessment. Any reported ICA stenosis di rectly references the distal internal carotid diameter as the denominator for stenosis measurement. NON-VASCULAR STRUCTURES: Tra ce paraseptal emphysematous changes in the visualized right lung apex. Mild degenerative disc, endplate changes in the cervical spine most pronounced at C4-C5. CTA HEAD: ANTERIOR CIRCULATION: The marsh praclinoid, petrous, cavernous and ophthalmic segments of the internal carotid arteries are unremarkable. The A1 and A2 segments of the anterior cerebral arteries, middle cer ebral arteries and branches are unremarkable. The anterior communicating artery is unremarkable. There is no high-grade stenosis, occlusion or aneurysm. POSTERIOR CIRCULATION: Bilat eral vertebral arteries, basilar artery and superior cerebellar arteries are unremarkable bilaterally. Persistent multifocal irregularity and narrowing along the bilateral P2 segments, right more than t he left. The posterior inferior cerebellar arteries are unremarkable. There is no high-grade stenosis, occlusion or aneurysm. No CT evidence of arterial venous malformation. NON-CONTRAST BRAIN IMAGES: S table acute intraparenchymal hematoma in the left insular region measuring 2.6 x 1.4 cm. Mild surrounding vasogenic edema causing [id number] mass effect on the adjacent brain parenchyma with effac ement of the left lateral ventricle and stable 3 mm shift of the midline to the right. No extra-axial fluid collection. No hydrocephalus. CONTRAST ENHANCED BRAIN IMAG ES: The contrast-enhanced images of the head show no abnormally enhancing lesions or arterio- venous malformation.. If there is further concern, recommend conventional angiography for complete assessment. IMPRESSION: 1. No arteriovenous malforma tion in the vicinity of the left insular hemorrhage. 2. Stable soft eccentric ath eromatous plaque along the left carotid bulb without significant stenosis by NASCET criteria. 3. Persistent multifocal irr egularity and narrowing along the bilateral P2 segments, right more than the left. No high-grade stenosis. All quantitative and qualita tive measurements of the carotid arteries in the neck are performed utilizing the distal internal carotid artery for reference as per standard NASCET criteria. SL: JO Brain wo contrast CT EXAM: CT BRAIN WITHOUT CONTRAST 10/10/2017 [facility] DATE: 10/10/2017 3:49 AM [facility] er INDICATION: - post evd clamp COMPARISON: Brain CT dated 10/04/2017 TECHNIQUE: Routine axial CT images of the brain were obtained. Reformatted images in the sagittal and coronal plane were included. IV contrast: None. DLP: 1205 mGy-cm FINDINGS: A parenchymal hematoma in th e right thalamus with surrounding vasogenic edema continues to decrease in size and attenuation. The intraventricular hemorrhage has almost completely resolved. The right fro ntal ventriculostomy termina anselmo in the right frontal horn near the foramen of Monro. There has been interval decrease in the size of the lateral ventricles. The combined width of the atria has decreased from 57 mm on October 04 to 53 mm currently. The peripheral sulci and basal cisterns are patent. IMPRESSION: Interval decrease in the intraparenchymal and in traventricular hemorrhages. Interval decrease in the size of the the ventric ular system. Brain wo contrast CT 10/04/2017 [facility] dical EXAMINATION: CT head without contrast Center DATE: 10/04/2017 patient: Intraventricular hemorrh age. FINDINGS: Noncontrast CT images of the head are compared t o an exam dated 09/30/2017. Over the interval, there has been clearance of intraventricular hemorrhage from the left lateral ventricle. Casted hemorrhage persists in the right lateral ventricle. The ventricles are decompressed by catheter entering the right frontal region with its tip near the midline. A hematoma in the right thalamus is stable in si ze. IMPRESSION: Slowly resolving intraventricular hemorrhage. Brain wo contrast CT CT HEAD WITHOUT CONTRAST 09/30/2017 [facility] DATE: 09/30/2017 at 8:55 AM. COMPARISON: 09/28/2017. HISTORY: Intracranial hemorrhage. TECHNIQUE: Contiguous [...] ntraventricular blood is noted within all 4 vent ricles. There are no acute infarcts. The martinez-white inte rfaces are well defined. There are no extra-axial collections. IMPRESSION: 1. Interval placement of rig ht transfrontal ventriculostomy with decompression of the ventricular system. 2. Stable 3.2 x 2.8 x 1.7 cm parenchymal hemorrhage within the right thalamus with intraventricular extension. Brain/Neck CTA EXAM: CT ANGIOGRAM OF THE HEAD 09/28/2017 [facility] EXAM: CT ANGIOGRAM OF THE NECK C enter DATE: 09/28/2017 923 PM [employer] INDICATION: 37 years old Male patient wi th history of right thalamic hematoma. TECHNIQUE: Rapid acquisition spiral CT images of the neck were obtained between the aortic arch and the skull base during intravenous infusion of iodinated contrast for the purposes of CT angiography. 3 -D CT angiographic images ar e created using MIP technique at the acquisition workstation. The source images are also presented for interpretation. COMPARISON: Prior CT Scan of the Head, C-Spine, dated 09/28/2017 FINDINGS: CT ANGIOGRAM OF THE NECK: AORTIC ARCH: Left sided aort ic arch. Great vessels originate from the aortic arch in the standard configuration. Origins of the great vessels appear patent without hemodynamically significant stenosis. CERVICAL CAROTID ARTERIES: RIGHT: Common carotid artery has a normal course without hemodynamically significant stenosis. Common carotid artery bifurcates at level of C4- C5. There are no significant ath erosclerotic plaques without hemodynamically significant stenosis at the carotid bifurcation/carotid bulb. Remaining cervical internal carotid artery has a normal course and contour without hemodynamically significant sten osis. There is no definite evidence of vascular injury or aneurysm. LEFT: Common carotid artery has a normal course without hemodynamically significant stenosis. Common carotid artery bifurcates at level of C4- C5. There are mild noncalcified atherosclerotic plaques without hemodynamically significant stenosis at the carotid bifurcation/carotid bulb. Remaining cervical internal carotid artery has a normal course a nd contour without hemodynamically significant s tenosis. There is no definite evidence of vascular injury or aneurysm. CERVICAL VERTEBRAL ARTERIES: Codominant vertebra l arteries. RIGHT: Originates from right subclavian artery.. No hemodynamically significant stenosis at origin. It enters the vertebral foramina at level of C6. It has a normal caliber without hemodynamically signi ficant stenosis. Note is mad e of fenestration in the distal V2 segment at the level of C2-C3. LEFT: Originates from left s ubclavian artery.. No hemodynamically significant stenosis at origin. It enters the vertebral foramina at level of C6. It has a normal caliber without hemodynamically significant stenosis. CT ANGIOGRAM OF THE HEAD: ANTERIOR CIRCULATION: Right Internal Carotid Arter y: Petrous, Laceral, Cavernous, Clinoid, Ophthalmic and Communicating segment appear normal in caliber and contour. No hemodynamically significant stenosis is present. Left Internal Carotid Artery : Petrous, Laceral, Cavernous, Clinoid, Ophthalmic and Communicating segment appear normal in caliber and contour. No hemodynamically significant stenosis is present. Anterior Cerebral Arteries: Anterior cerebral arteries appear widely patent without hemodynamically significant stenosis. Middle Cerebral Arteries: Mi ddle cerebral arteries appear widely patent without hemodynamically significant stenosis. POSTERIOR CIRCULATION/VERTEBROBASILAR SYSTEM: Codominant vertebral arterie s. Intracranial vertebral arteries (V4 segments) appear widely patent without hemodynamically significant stenosis. Basilar artery appears widel y patent without hemodynamically significant stenosis. Bilateral posterior communic ating arteries are noted. 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 Mild focal luminal narrowing within the left P-comm and proxima l P2. Visualized distal post erior cerebral arteries appear widely patent without hemodynamically significant stenosis. VENOUS SYSTEM: Poorly opacified due to contrast bolus timing. EXTRAVASCULAR FINDINGS: Visualized lung apices are c lear. Thyroid gland appears unremarkable. No definite mass lesion is seen within neck. Airway is widely patent. Vertebral alignment of the c ervical spine is anatomic. Multilevel mild degenerative changes within cervical spine, most pronounced at C4-C5. Please refer to detailed rep ort of the CT scan of the head for non-vascular intracranial findings IMPRESSION: 1. No definite vascular abno rmality in the vicinity of right thalamic hematoma. 2. 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 Visualized distal posterior cerebral arteries appear widely patent without hemodynamically significant stenosis. 3. Mild noncalcified atherosclerotic plaque with in the left carotid bulb. All quantitative and qualita tive measurements of the carotid arteries in the neck are performed utilizing the distal internal carotid artery for reference as per standard NASCET criteria. Brain wo contrast CT EXAM: CT BRAIN WITHOUT CONTRAST 09/28/2017 [facility] DATE: 09/28/2017 6:12 PM [facility] INDICATION: - Rt thalamic ICH with IVh and hydr o COMPARISON: CT head from 09/28/2017 at 0:00 hours and 1226 hours TECHNIQUE: Routine axial CT images of the brain were obtained IV contrast: None. FINDINGS: Again identified, there is a right thalamic parenchymal hematoma which has intraventricular spread. Since the previous examination, the size of the hematoma has been slightly reduced. The amount of intr aventricular hemorrhage joel ins and the temporal horns of the lateral ventricles are again dilated consistent with early ventricular dilation. The perimesencephalic cister ns are effaced which could be related to uncal transtentorial herniation. The martinez-white matter differentiation is preserv ed. Diffusely the sulci are effaced due to mass effe ct. IMPRESSION: In the interval, there has b een slow reduction in size of the right thalamic parenchymal hematoma. Intraventricular extension i s again seen and the lateral ventricles are slowly increasing in size. Chest 1view DX EXAM: XR CHEST 1 VIEW 09/28/2017 [facility] edical DATE: 09/28/2017 12:22 PM [facility] er INDICATION: - stroke COMPARISON: CT cervical spine September 28, 2017. TECHNIQUE: AP chest UT SECTION: ER FINDINGS: Lines, tubes and hardware: C ardiac leads seen projecting over the chest and abdomen. Lungs and pleura: Lung volum es are slightly low. Pulmonary vascularity and central interstitial markings are mildly prominent. Heart and mediastinum: The h eart size is normal for technique. The mediastinal contours are normal. Bones: No acute bony abnormality is identified. IMPRESSION: Bronchovascular congestion, at least in part related to low lung volumes. Mild central neurogenic pulmonary edema may also be present. Brain-Outside CT HEAD WITHOUT CONTRAST OUTSIDE CONSULT 0[address] [facility] DATE: 09/28/2017 at 10:21 AM. HISTORY: - hemorrhagic stroke transfer. TECHNIQUE: Outside imaging [facility] is submitted for interpretation. The study consists of axial images of the brain obtained without intravenous contrast administration. FINDINGS: There is a 3.2 x 2.8 x 1.7 c m parenchymal hematoma within the right thalamus with intraventricular extension. Intraventricular blood is noted within all 4 ventricles, more prominent on the right. There is mild dilatation of the te mporal horns consistent with mild hydrocephalus. There is effacement of the sulci over the convexities, a combination of mild hydrocephalus and robust brain volume. There are no acute infarcts. The martinez-white inte rfaces are well defined. There are no extra-axial collections. There are no acute bony abnormalities. The mili rium is intact. IMPRESSION: 1. 3.2 x 2.8 x 1.7 cm parenc hymal hemorrhage within the right thalamus with intraventricular extension. 2. Mild hydrocephalus. Concur with outside interpretation. Spine-Outside CT CERVICAL SPINE OUTSIDE CONSULT 09/28/2017 [facility] DATE: 09/28/2017 at 10:18 AM. Cent er COMPARISON: None. HISTORY: Altered mental status, unknown trauma. TECHNIQUE: Outside imaging f rom [facility]. Axial images were obtained at 2 mm intervals in the unenhanced mode. Sagittal and coronal reformatted images were also provided. DLP: 568.1 mGy-cm. Findings: The cervical verte brae are intact and in normal anatomic alignment. There are no acute fractures, subluxations, or dislocations. The prevertebral soft tissues follow normal anatomic contour. There is central disc osteop hyte complex at C4-C5 causing moderate stenosis of the spinal canal. The remainder the interverte bral discs are well-maintained. There are no other disc bulges or disc protrusions. IMPRESSION: 1. No acute cervical injury. 2. Central disc osteophyte c omplex at C4-C5 causing moderate stenosis of the spinal canal. Concur with outside interpretation. Brain wo contrast CT CT HEAD WITHOUT CONTRAST 09/28/2017 [facility] DATE: 09/28/2017 at 12:26 PM. Cent er COMPARISON: Outside imaging from [facility] 09/28/2017 at 10:21 AM. HISTORY: - [...] the prior study. I ntraventricular blood is not ed within all 4 ventricles. There is mild dilatation of the temporal horns consistent with mild hydrocephalus. There is effacement of the sulci over the convexities, a combin ation of mild hydrocephalus and robust brain vol ume. There are no acute infarcts. The martinez-white inte rfaces are well defined. There are no extra-axial collections. There are no acute bony abnormalities. The mili rium is intact. IMPRESSION: 1. Stable exam. There is no significant change from the outside study of 2 hours earlier. 2. Stable 3.2 x 2.8 x 1.7 cm parenchymal hemorrhage within the right thalamus with intraventricular extension. 3. Mild hydrocephalus. Consultation Notes No Data Provided for This Section Discharge Summaries No Data Provided for This Section History and Physicals No Data Provided for This Section Vital Signs Vital Sign Value Date Comments Source Systolic (mm Hg) 160 12/31/2018 [facility] t Diastolic (mm Hg) 92 12/31/[address] [facility] [address] Respitory Rate 18 12/31/2018 [facility] Heart Rate 67 12/31/2018 [facility] Temperature Oral (F) 98.3 F 12/31/2018 [facility] Respitory Rate 18 12/31/2018 [facility] Systolic (mm Hg) 139 12/31/2018 [facility] t Diastolic (mm Hg) 74 12/31/2018 [facility] Temperature Oral (F) 97.9 F 12/31/2018 [facility] Heart Rate 57 12/31/2018 [facility] Respitory Rate 18 12/31/2018 [facility] Heart Rate 74 12/31/2018 [facility] Temperature Oral (F) 98 F 12/31/2018 [facility] Systolic (mm Hg) 150 12/31/2018 [facility] t Diastolic (mm Hg) 72 12/31/2018 [facility] Height 187.96 cm 12/29/2018 [facility] Weight 118 12/29/2018 [facility] BMI Calculated 33.4 12/29/2018 [facility] Encounters Location Location Encounter Encounter Reason Attending ADM DC Stat us Source Details Type Number For Provider Date Date Visit MNA Phone [id number] 10/22 10/24 Mis her Neurosurger Message /2017 [facility] Phone [id number] 10/28 10/30 Misc her Neurosurger Message /2017 [facility] Ambulatory [id number] TRAUMA [facility]2017 [facility] [id number] Non 12/29 12/29 NAKITA Domínguez Physician /2017 [facility] Inpatient [id number] Jose Elias 12/29 12/31 NAKITA Brioneser /2018 [facility] MNA Phone [id number] 01/10 01/12 Misc her Neuroscienc Message /2018 Neur o e [facility] Outpatient [id number] Beni-Sylvia 01/27 [facility] Ambulatory [id number] Beni-Sylvia 01/27 01/27 [facility] Procedures No Data Provided for This Section Assessment and Plan Assessment and Plan Date Source Extracted from:Title: ICU Stepdown Note 12/31/2018 [facility] Author: Mary Ann Naqvi DO Date: 12/30/18 38-year-old male with a history of uncontrolled hypertensionandright thalamic intracranial hemorrhage presenting with a new left basal ganglia hemorrhagesecondary to hypertensiveemergency 1.Infarction of left basal ganglia(I63.9) -Hemorrhagic infarction of left basal g anglia secondary to hypertensive urgency stable on repeat [...] uncontrolled hypertension. -Patientstates that the strokes are sec ondary to stress. Considerantianxiety medicationto be prescribed outpatient by PCP. -Recommend close follow-up with PCP. Wi ll provide information regardinglocal clinics including [facility] to patient prior to discharge. -Blood pressures improved but were not at goal on lisinopri l 10 twice daily -Increase lisinopril to 30 daily -Continue carvedilol 12.5 every 12 hours -Consider addingHCTZ to blood pressure regimen;patient may be more compliant with combopilllisinopril/HCTZ if both medications are required. 3.Diabetes(E11.9) -Sugars have been well controlled on insulin5 units with me als -Continue regular POC glucose checks Heparin Inpatient for management of acute left basal ganglia stro ke Patient careandplan discussed with Sr. resident physician Magdalena Mancera. Mary Ann Naqvi DO PGY1 MSO: [id number] Plan of Care No Data Provided for This Section Social History Social History Date Source Social History TypeResponse 09/28/2017 [facility] Alcohol Current, Type Beer, Liquor. Frequency: 1-2 times per month. Smoking Status Current every day smoker; Type: Cigarett es; Exposure to Tobacco Smoke smoker; Cigarette Smoking Last 365 Days Yes; Reg Smoking Cessation Counseling No; Other Tobacco Frequency 1 pack/day; entered on: 12/29/18 Social History TypeResponse 09/28/2017 [facility] Alcohol Current, Type Beer, Liquor. Frequency: 1-2 times per month. Smoking Status Current every day smoker; Type: Cigarett es; Exposure to Tobacco Smoke smoker; Cigarette Smoking Last 365 Days Yes; Reg Smoking Cessation Counseling No; Other Tobacco Frequency 1 pack/day; entered on: 12/29/18 Social History TypeResponse 09/28/2017 [facility] Alcohol Current, Type Beer, Liquor. Frequency: 1-2 times per month. Smoking Status Current every day smoker; Type: Cigarett es; Exposure to Tobacco Smoke smoker; Cigarette Smoking Last 365 Days Yes; Reg Smoking Cessation Counseling No; Other Tobacco Frequency 1 pack/day; entered on: 09/28/17 Family History No Data Provided for This Section Advance Directives No Data Provided for This Section Functional Status No Data Provided for This Section
--- OUTSIDE RECORDS SUMMARY | 2020-08-05 12:35 | XMS REPORT | Continuity of Care Document ---
:1980 Author Organization [facility] t Address [address] [place] [address] Care Team Providers Name Role Phone Josie Richards Attending Clinician Margaret Mcnulty Attending Clinician STROKERESEARCH Attending Clinician Unavailable WILL Attending Clinician Unavailable VIN Attending Clinician Unavailable SILVIANO Attending Clinician Unavailable Physician, Associated Attending Clinician Unavailable VISIT, CLINIC Attending Clinician Unavailable MARCELO Attending Clinician Unavailable Margaret Mcnulty Admitting Clinician Physician, Associated Admitting Clinician Unavailable Problems Condition Condition Condition Status Onset Resolution Last Treating Co mments Source Name Details Category Date Date Treatment Clinician Date HEMORRHAGI Diagnosis Active 2019-01-13 Memoria C STROKE -04 21:46:00 l 00:00: Sang HEMORRHAGI 00 C STROKE Active 12/29/2018 [facility] BRAIN Diagnosis Active 2017-09-28 Mem oria BLEED 09-28 13:05:00 l BRAIN 00:00: Sang BLEED 00 Active 09/28/2017 [facility] MARA Diagnosis Active 2017-09-28 Memoria BILLING 09-28 12:33:00 l 00:00: Pitman MARA 00 BILLING Active 09/28/2017 [facility] ACUTE ICH Diagnosis Active 2018-01-29 Memoria 09-28 15:43:00 l ACUTE 00:00: Sang ICH 00 Active 09/28/2017 [facility], Rehabilita tion Diabetes Diabetes Problem Active Unive rs mellitus mellitus [place]y of [place] Physici ans Intracereb Intracereb Problem Active U nivers ral [place] Essential Essential Problem Active Uni vers (primary) (primary) [place] hypert[place] Dysphagia Problem Active 2019-01-29 Me moria (disorder) 21:35:56 l Sang Dysphagia (disorder) Active Problem 01/29/2019 [facility] Hypertensi Problem Active 2019-01-29 M emoria ve 21:35:56 l disorder, Pitman systemic Hypertensi arterial ve (disorder) disorder, systemic arterial (disorder) Active Problem 01/29/2019 [facility] NONTRAUMAT Diagnosis Active 2017-10-18 Memoria IC 21:59:00 l INTRACEREB Dread n RAL NONTRAUMAT HEMORRHAGE IC , U INTRACEREB RAL HEMORRHAGE , U Active [facility] ILLNESS, Diagnosis Active 2019-01-13 M emoria UNSPECIFIE 21:46:00 l D ILLNESS, Dread n UNSPECIFIE D Active [facility] Allergies, Adverse Reactions, Alerts Allergy Allergy Status Severity Reaction(s) Onset Inactive Treating Comm ents Source Name Type Date Date Clinician No Known No Known Active Memori a Medicati Medicati l on on Sang Allergie Allergie s s Social History Social Habit Start Date Stop Date Quantity Comments Source Social History 2017-09-28 [facility]-[address] [facility] 22:35:41 Smoking Status Start Date Stop Date Source Smoker. current status unknown U [facility] Medications Ordered Filled Start Stop Current Ordering Indication Dosage Frequency Signature Comments Components Source Medication Medication Date Date Medication? Clinician (SIG) Name Name carvedilol Yes 12.5 mg = Me moria 12.5 mg 12-31 1 tab, PO, l oral tablet 18:15: Q12H, # 60 Pitman 00 tab, 0 Refill(s) lisinopril Yes 30 mg = 1 Me moria 30 mg oral -06 tab, PO, l tablet 15:37: Daily, # Sang 00 30 tab, 0 Refill(s) Lisinopril No Notes: Memor ia 12-31 (Same as: l 14:00: Prinivil, Pitman 00 Zestril) Hydrochloro No 1 tab, Delmer adriel thiazide 12-31 Route: PO, l 12.5 MG / 14:00: Drug Form: He rmann Lisinopril 00 TAB, 20 MG Oral Dosing Tablet Weight 118, kg, Daily, Start date: 12/31/18 9:00:00 CDT, Duration: 30 day, Stop date: 01/29/19 9:00:00 CDT Insulin 2018- No Notes: Memoria Lispro 4-06 (Same as: l 04:44: Humalog ) Pitman Roll in palms of hands gently; Do not shake `vigorousl y. "Single Patient Use Only " WASTE: F/P - Black; E - Municipal Trash Bin Stable for 28 days at room temperatur e. Expires in days from ____Date Dextrose No 25 gm, 50 Delmer adriel 50% Syringe 4-06 mL, Route: l 04:44: IVP, Drug Pitman 00 Form: INJ, Dosing Weight 118, kg, PRN, PRN Blood Glucose Results, Start date: 12/30/18 23:44:00 CDT, Duration: 30 day, Stop date: 01/29/19 23:43:00 CDT Glucagon No 1 mg, Memoria 12-31 Route: IM, l 04:44: Drug form: Pitman 00 PDR/INJ, PRN, Dosing Weight 118, kg, PRN Blood Glucose Results, Start date: 12/30/18 23:44:00 CDT, Duration: 30 day, Stop date: 01/29/19 23:43:00 CDT Lovenox 2018- No Notes: Memoria 4-05 (Same as: l 22:00: Lovenox) Sang 00 insulin, No Notes: Memoria isophane 4-05 Roll in l 13:54: palms of Pitman 00 hands gently; Do not shake vigorously . (Same as: Humulin N) Do not hold insulin without contacting prescriber WASTE: F/P - Black; E - Municipal Trash Bin Stable for 28 days at room temperatur e Expires in days from ____Date heparin 2018- No Notes: Memoria 4-05 porcine l 05:00: heparin Sang 00 Docusate No Notes: Memoria 4-05 (Same as: l 02:00: Colace) Pitman 00 (Do Not Crush) Lisinopril No Notes: Memor ia -05 (Same as: l 02:00: Prinivil, Sang 00 Zestril) Coreg No Notes: Memoria 4-05 Give with l 02:00: food. Pitman 00 (Same As: Coreg) sennosides, No Notes: Delmer adriel HALF-WAY 8.6 MG 12-30 (Same as: l Oral Tablet 02:00: Senokot) He rm Saline No Notes: Memoria Flush 0.9% 12-30 Same as: l 02:00: BD Posiflush Sterile Sodium No 250 mL, Memoria Chloride 12-29 Route: l 0.9% IV 22:46: IVPB, Start date: 12/29/18 17:46:00 CDT, Duration: 30 day, Stop date: 01/28/19 17:45:00 CDT, PRN Line Flush BD Normal No Notes: Memori a Saline 12-29 Same as: l Flush 22:45: BD Posiflush Sterile Omnipaque No Notes: Memori a 350 12-29 (same l injectable 22:17: as:Omnipaq H ermann solution 00 ue 350). WASTE: F/P - Black; E - Municipal Trash Bin Isolyte S No Notes: Memori a PH 7.4 - (Same as: l 1,000 mL 22:11: Isolyte S PH 7.4) Insulin No Notes: Memoria Lispro - (Same as: l 21:04: Humalog ) Roll in palms of hands gently; Do not shake `vigorousl y. "Single Patient Use Only " WASTE: F/P - Black; E - Municipal Trash Bin Stable for 28 days at room temperatur e. Expires in days from ____Date Glucagon No 1 mg, Memoria 4 Route: IM, l 21:04: Drug form: Sang 00 PDR/INJ, PRN, Dosing Weight 118, kg, PRN Blood Glucose Results, Start date: 12/29/18 16:04:00 CDT, Duration: 30 day, Stop date: 01/28/19 16:03:00 CDT Dextrose 2019- No 25 gm, 50 Delmer adriel 50% Syringe 4-04 mL, Route: l 21:04: IVP, Drug Sang 00 Form: INJ, Dosing Weight 118, kg, PRN, PRN Blood Glucose Results, Start date: 12/29/18 16:04:00 CDT, Duration: 30 day, Stop date: 01/28/19 16:03:00 CDT potassium 2018- No Notes: Memori a phosphate 12-29 (Same as: l 20:15: K Pitman 00 Phosphate. ) Do not infuse phosphorou s concurrent ly in the same line as TPN or IVF that contains calcium. For double lumen central lines, phosphorou s may be infused in a separate lumen from TPN. 1 mMol phoshate has 1.47 mEq potassium Infuse over 4 hours Calcium No Notes: Memoria Carbonate 12-29 (Same As: l 500 MG 20:15: Tums) Pitman Chewable 00 Calcium Tablet Carbonate 500 mg = 200 mg elemental calcium Dose = mg calcium carbonate ( mg elemental calcium) Calcium No Notes: Memoria Gluconate 12-29 WASTE: F/P l 20:15: - Sink; E Pitman - Municipal Trash Bin Magnesium 2018- No Notes: Memori a Oxide 12-29 (Same as: l 20:15: Mag-Ox Sang 00 400) Magnesium oxide 994de=167m g elemental magnesium Dose=____m g magnesium oxide (___mg elemental magnesium) Magnesium No Notes: Memori a Sulfate 12-29 WASTE: F/P l 20:15: - Sink; E Pitman - Municipal Trash Bin potassium 2018- No Notes: Memori a phosphate-s - (Same as: l odium 20:15: Phos-NaK) Sang phosphate 00 Each 1.5 250 mg-280 gm pkt has mg-160 mg 250mg oral powder phosphorou for s. Mix reconstitut w/2.5oz ion water and stir. sodium 2018-0 No Notes: Memoria phosphate 4- Infuse l 20:15: over 4 Pitman 00 hour. Do not infuse phosphorou s concurrent ly in the same line as TPN or IVF that contains calcium. For double lumen central lines, phosphorou s may be infused in a separate lumen from TPN. Potassium No Notes: Memori a Chloride 12-29 (Same as: l 20:15: K-Dur 20) Pitman 00 "Do Not Crush" Give with food and full glass of water For patients unable to swallow tablet, dissolve in one half glass of water. Allow about 2 minutes for the tablets to disintegra te. Stir before giving to prepare slurry and administer . Please exclude Patient s with feeding tube less than 14 Arabic (Dobhoff, J-tube etc) and pediatric and patients. Cardene 40 No Notes: Memor ia mg in NS 12-29 Same as: l 200 mL 20:14: Cardene Pitman (Titrate.) 00 Concentrat IV 40 mg ion: (0.2 mg /1 ml ) Saline No Notes: Memoria Flush 0.9% 12-29 Same as: l 19:56: BD Sang 00 Posiflush Sterile Acetaminoph No Notes: Do M emoria en 12-29 not exceed l 19:56: 4 gm/day. Pitman (Same as: Tylenol) Labetalol No Notes: Memori a - (Same as: l 19:56: Normodyne, Sang 00 Trandate) Push over 2 minutes Give bolus over 2-3 minutes. enalapril No Notes: Memori a 12-29 (Same as: l 19:56: Vasotec-IV Sang ) Sodium No 1,000 mL, Memori a Chloride 12-29 Rate: 75 l 0.9% IV 19:56: ml/hr, Sang 1,000 mL 00 Infuse over: 13.3 hr, Route: IV, Dosing Weight 127.4 kg, Total Volume: 1,000, Start date: 12/29/18 14:56:00 CDT, Duration: 30 day, Stop date: 01/28/19 14:55:00 CDT, 2.61, m2 NIFEdipine NIFEdipine Yes ANJAIL 1 QD TAKE 1 Univers ER 30 MG ER 30 MG 2-12 SHARRIEF TABLET i ty of Oral Tablet Oral Tablet 00:00: M.D. DAILY. [place] Extended Extended 00 Physici Release 24 Release 24 ans Hour Hour Nicotine 21 Nicotine 21 Yes AMROU QD APPLY 1 Univers MG/24HR MG/24HR 2-12 SARRAJ PATCH ity of Transdermal Transdermal 00:00: M.D. DAILY [place] Patch 24 Patch 24 00 DIRECTED. Ph ysici Hour Hour ans Lisinopril Lisinopril Yes ANJAIL Q0.5D TAKE 1 Univers 20 MG Oral 20 MG Oral 2- SHARRIEF TABLET ity of Tablet Tablet 00:00: M.D. TWICE [place] 00 DAILY. Physici ans Carvedilol Carvedilol Yes AMROU 1 Q12H TAKE 1 Univers 25 MG Oral 25 MG Oral 2- SARRAJ TABLET ity of Tablet Tablet 00:00: M.D. Every [place] 00 twelve Physici hours ans NovoLIN N NovoLIN N Yes M.A. USE U nivers ReliOn 100 ReliOn 100 2 DIRECTED. ity of UNIT/ML UNIT/ML 00:00: [place] Subcutaneou Subcutaneou 00 P hysici s s ans Suspension Suspension Vital Signs Vital Name Observation Time Observation Value Comments Source Systolic (mm Hg) 2018-12-31 [facility] rmann 17:00:00 Diastolic (mm Hg) 2018-12-31 [facility] ermann 17:00:00 Respitory Rate 2018-12-31 [facility] frances 17:00:00 Heart Rate 2018-12-31 [facility] Dread n 17:00:00 Temperature Oral 2018-12-31 98.3 F [facility] rmann (F) 17:00:00 Respitory Rate 2018-12-31 [facility] Herm frances 13:00:00 Systolic (mm Hg) 2018-12-31 [facility] rmann 13:00:00 Diastolic (mm Hg) 2018-12-31 [facility] ermann 13:00:00 Temperature Oral 2018-12-31 97.9 F [facility] rmann (F) 13:00:00 Heart Rate 2018[facility]12[facility] 13:[facility]00 Respitory Rate 2018-12-31 [facility] Herm frances 09:00:00 Heart Rate 2018-12-31 [place] n 09:00:00 Temperature Oral 2018-12-31 98 F [facility] Shreyas rmann (F) 09:00:00 Systolic (mm Hg) 2018-12-31 [facility] Shreyas rmann 09:00:00 Diastolic (mm Hg) 2018-12-31 [facility] Cathy ermann 09:00:00 Height 2018-12-29 187.96 cm [place] 20:38:00 Weight 2018-12-29 [place] 20:38:00 BMI Calculated 2018-12-29 Inez [place] frances 20:38:00 BP Systolic 2018-01-03 154 mm[Hg] Location: [facility] 10:42:00 Position: [place] Physician s Sitting BP Diastolic 2018-01-03 94 mm[Hg] Location: [facility] 10:42:00 Position: [place] Physician s Sitting Height 2018-01-03 75 [in_us] [facility] 10:42:00 [place] Physician s Weight 2018-01-03 285 [lb_av] [facility] 10:42:00 [place] Physician s Body Mass Index 2018-01-03 35.62 kg/m2 University o f Calculated 10:42:00 [place] Physician s Heart Rate 2018-01-03 65 /min Location: [facility] 10:42:00 Brachial [place] Physician s Artery; BP Systolic 2017-11-08 168 mm[Hg] Location: [facility] 10:37:00 Position: [place] Physician s Sitting BP Diastolic 2017-11-08 101 mm[Hg] Location: [facility] 10:37:00 Position: [place] Physician s Sitting Heart Rate 2017-11-08 82 /min Location: [facility] 10:37:00 Brachial [place] Physician s Artery; BP Systolic 2017-10-28 162 mm[Hg] Location: [facility] 13:16:00 Position: [place] Physician s Sitting BP Diastolic 2017-10-28 92 mm[Hg] Location: [facility] 13:16:00 Position: [place] Physician s Sitting Heart Rate 2017-10-28 89 /min [facility] 13:16:00 [place] Physician s Height 2017-10-28 75 [in_us] University 13:16:00 [place] Physician s Weight 2017-10-28 275 [lb_av] University 13:16:00 [place] Physician s Body Mass Index 2017-10-28 34.37 kg/m2 University o f Calculated 13:16:00 [place] Physician s BP Systolic 2017-10-25 184 mm[Hg] Location: [facility] 11:16:00 Position: [place] Physician s Sitting BP Diastolic 2017-10-25 179 mm[Hg] Location: [facility] 11:16:00 Position: [place] Physician s Sitting Heart Rate 2017-10-25 79 /min Location: [facility] 11:16:00 Brachial [place] Physician s Artery; Procedures This patient has no known procedures. Encounters Start End Encounter Admission Attending Care Care Encounter Source Date/Time Date/Time Type Type Clinicians Facility Department ID 2018-12-29 Inpatient [facility] [id number] [facility] W 14:18:00 2019-01-27 2019-01-27 [id number] 16:00:00 16:00:00 Beni-Sylvia 01 Josie 2019-01-10 2019-01-11 [facility] [id number] 14:32:00 23:59:59 02 2018-12-29 2018-12-31 Outpatient [place] [facility] [id number] 14:18:00 15:47:00 Jose Elias Robles 94 2018-04-12 2018-04-12 [facility] [id number] Univers 11:30:00 11:30:00 t; [facility] ans 2018-04-12 2018-04-12 Appointmen [facility] [id number] Univers 10:00:00 10:00:00 t; GEN SOLIS ity of [place], M.D. [place] M.D. Physici ans 2018-03-11 2018-03-11 Appointmen LORENZO BANUELOS [facility] [id number] Univers 10:30:00 10:30:00 t; Tomasz JIMENEZ M.D. [place] Jess JIMENEZ M.D. ans 2018-01-03 2018-01-03 Appointmen LORENZO SHORE Neurology [id number] Univers 10:30:00 10:30:00 t; DORIS SHORE M.D. ity of [place], [place] M.D. Physic ans 2017-12-29 2017-12-29 Outpatient Physician, [facility] [id number] 12:20:00 12:20:00 Non 00 Associated 2017-11-08 2017-11-08 Appointmen LORENZO SHORE [facility] [id number] Univers 10:00:00 10:00:00 t; DORIS SHORE M.D. ity of [place], [place] Kavya Physici ans 2017-11-04 2017-11-04 Outpatient VISIT, MHMISCHER MHMISCHER [id number] 12:00:00 12:00:00 TRAUMA 00 CLINIC 2017-10-28 2017-10-29 Outpatient MHMISCHER MHMISCHER [id number] 14:14:00 23:59:59 01 2017-10-28 2017-10-28 Appointmen LORENZO [facility] [id number] Univers 13:45:00 13:45:00 t; Kavya CASEY [facility], [place] Jess CASEY M.D. ans 2017-10-25 2017-10-25 AppointLORENZO oRbison [facility] [id number] Univers 10:00:00 10:00:00 t; Tomasz JIMENEZ M.D. [place] Jess JIMENEZ M.D. ans 2017-10-22 2017-10-23 Outpatient MHMISCHER MHMISCHER [id number] 16:29:00 23:59:59 00 Results Test Description Test Time Test Comments Results Result Comments Source CHEM PANEL 2018-12-30 2.7 [facility] 08:56:00 CHEM PANEL 2018-12-30 2.1 [facility] 08:56:00 CHEM PANEL 2018-12-30 9.0 [facility] nn 08:56:00 CHEM PANEL 2018-12-30 27 [facility] nn 08:56:00 CHEM PANEL 2018-12-30 11 [facility] nn 08:56:00 CHEM PANEL 2018-12-30 141 [facility] nn 08:56:00 CHEM PANEL 2018-12-30 3.5 [facility] nn 08:56:00 CHEM PANEL 2018-12-30 109 [facility] nn 08:56:00 CHEM PANEL 2018-12-30 150 [facility] nn 08:56:00 CHEM PANEL 2018-12-30 129 [facility] nn 08:56:00 CHEM PANEL 2018-12-30 0.80 [facility] 08:56:00 CHEM PANEL 2018-12-30 8.5 [facility] 08:56:00 HEMATOLOGY 2018-12-30 1.9 [facility] 08:56:00 HEMATOLOGY 2018-12-30 0.4 [facility] 08:56:00 HEMATOLOGY 2018-12-30 54.4 [facility] nn 08:56:00 HEMATOLOGY 2018-12-30 3.4 [facility] nn 08:56:00 HEMATOLOGY 2018-12-30 0.1 [facility] nn 08:56:00 HEMATOLOGY 2018-12-30 0.5 [facility] nn 08:56:00 HEMATOLOGY 2018-12-30 2.2 [facility] nn 08:56:00 HEMATOLOGY 2018-12-30 35.3 [facility] nn 08:56:00 HEMATOLOGY 2018-12-30 8.0 [facility] nn 08:56:00 HEMATOLOGY 2018-12-30 269 [facility] nn 08:56:00 HEMATOLOGY 2018-12-30 14.1 [facility] nn 08:56:00 HEMATOLOGY 2018-12-30 84.0 [facility] nn 08:56:00 HEMATOLOGY 2018-12-30 08:56:00 Test Item Value Reference Range Interpretation Comme nts MCH (test code = MCH) 27.6 pg 27.0-31.0 [facility] ShbhgkySLTTMWDPGU5195-12-44 08:56:0032.8[facility] HermannHEMATOLOGY 2018-12-30 08:56:007.6[facility] YnnzwobOVBGWLYNJL6178-71-40 08:56:006.2[facility] BemmnacYTLSTVWIBD8469-86-24 08:56:004.44[facility] CznqwycNZWAEMRJNW4888-13-64 08:56:0012.2[facility] SgauuviCRFQZHWPVE8478-76-90 08:56:0037.3[facility] Sang PARATHYROID LMMMDEK8775-81-68 08:56:001.17[facility] HermannPARATHYROID PROFILE 2018-12-30 08:56:001.17[facility] LoodjikOWQPTE9756-68-30 21:01:00 Test Item Value Reference Range Interpretation Comments VLDL (test code = VLDL) 20 1 Memorial [id number] 21:01:0096[facility] DwppgkzNHLAPS9879-35-44 21:01:0098[facility] MkhvvcvDCLPQL3960-31-11 21:01:87438Jpvrcvvb HermannLIPIDS 2018-12-29 21:01:0060[facility] OxreozoOSHHCT7379-94-05 21:01:00 Test Item Value Reference Range Interpretation Comments CHD Risk (test code = CHD Risk) 2.93 1 4.00-7.30 [facility] HermannSPECIAL NRIQMQZTQ3748-55-62 21:01:006.9[facility] HermannBACTERIAL - [id number] 20:59:00Negative (12/29/18 3:59 PM)[facility] Sang DDRYQSZWVVKD8394-86-12 20:59:009.6[facility] BdsgtzjNTQCOJWWWXMI0954-11-02 20:59:33553Xjjlwqvf BohttrhCJJJLEPZIHZQ7022-64-42 20:59:009.0[facility]man JJBIEKRKGPXX1879-21-23 20:59:0026[facility] UqnetgkQVCPDBRHUAUQ8323-58-42 20:59:00 0.80[facility] GwymajyWOBKLBBTYLYA0199-64-17 20:59:99510Ystooawm Sang FHXEVLTVYHXP2326-67-96 20:59:29858Hohsblqv TkmjlqoAQUYLISWDHQX6277-05-41 20:59:003.6[facility] FlwshaiUOMSFYAWJVBX4126-37-68 20:59:0011[facility] HINSQSKCHWIR8613-97-23 20:59:42945Izjssmwp AanxmxdOQBAFWASVV9829-99-16 20:59:00 0.1[facility] WqknpamJEZWTXMAES6267-57-89 20:59:000.0[facility] HermannHEMATOLOGY 2018-12-29 20:59:000.5[facility] MuoqrciLBQXYUYAAO1316-23-39 20:59:002.5[facility] BefmpanWHGFWQTXWL1761-02-83 20:59:004.4[facility] DnjgzieTAUBFLZQZG7833-71-19 20:59:000.1[facility] JbwzncdJSCBDTUZVV3750-02-21 20:59:000.7[facility]man NKKEIWLXVX6989-83-02 20:59:006.9[facility] KbcstutWLYBWYVTDV0713-15-93 20:59:00 33.0[facility] XbyabqmSIZIFKMUBH6733-05-42 20:59:0059.3[facility] HermannHEMATOLOGY 2018-12-29 20:59:35568Furfomel YhoadofPNNTNQPZIP3608-81-81 20:59:007.3[facility] UsaurkdPMLJMGEYAE8524-24-22 20:59:0013.9[facility] IuhhnotBVAWUXORLZ9838-79-17 20:59:007.5[facility] ShotxmqFOPUESBCCH3173-20-04 20:59:0012.8[facility]man HZGYMDJHAL0557-65-71 20:59:0039.3[facility] HfusnojUBSRDVEECF6112-00-19 20:59:00 4.65[facility] UyvpbiwGORVMBTWCR8208-49-64 20:59:00 Test Item Value Reference Range Interpretation Comments MCH (test code = MCH) 27.6 pg 27.0-31.0 Memorial TjhynpcCIPGJKKQLG8130-77-04 20:59:0032.6[facility] HermannHEMATOLOGY 2018-12-29 20:59:0084.6[facility] HermannTobacco Use Qlobzlsuo5993-88-53 16:00:00 Test Item Value Reference Range Interpretation Comments Completed (test code = Completed) DONE [facility] Physicians
--- NOTE | 2020-08-05 13:13 | ER ---
Nurse's Notes [facility] Name: Corrie Diaz Age: 40 yrs Sex: Male : 1980 Arrival Date: 08/05/2020 Time: 12:10 Bed 23 Private MD: Diagnosis: Dental caries Presentation: 08/05 12:19 Chief complaint: Patient states: toothache, upper L since last night. Took Advil last ca1 night, no relief. Reports pain radiating to the L eye and L forehead. Coronavirus screen: Client denies travel out of the [place] in the last 14 days. At this time, the client does not indicate any symptoms associated with coronavirus-19. Ebola Screen: Patient negative for fever greater than or equal to 101.5 degrees Fahrenheit, and additional compatible Ebola Virus Disease symptoms Patient denies exposure to infectious person. Patient denies travel to an Ebola-affected area in the 21 days before illness onset. No symptoms or risks identified at this time. Initial Sepsis Screen: Does the patient meet any 2 criteria? No. Patient's initial sepsis screen is negative. Does the patient have a suspected source of infection? No. Patient's initial sepsis screen is negative. Risk Assessment: Do you want to hurt yourself or someone else? Patient reports no desire to harm self or others. Onset of symptoms was August 05, 2020. 12:19 Method Of Arrival: Ambulatory ca1 12:19 Acuity: KASHIF 4 ca1 Triage Assessment: 13:00 EENT: Reports pain in left eye and left jaw. jd3 Historical: - Allergies: 12:23 No Known Allergies; ca1 - Home Meds: 12:23 carvedilol Oral 2 times per day [Active]; lisinopril 20mg - out of medicine daily ca1 [Active]; Nifedipine Oral [Active]; Metformin Oral [Active]; - PMHx: 12:23 CVA; Diabetes - NIDDM; Hypertension; ca1 - PSHx: 12:23 None; ca1 - Immunization history:: Adult Immunizations up to date, Flu vaccine is not up to date. - Social history:: Smoking status: Patient reports the use of cigarette tobacco products, denies chronic smoking, but will smoke occasionally. Screenin:59 Abuse screen: Denies threats or abuse. Nutritional screening: No deficits noted. jd3 Tuberculosis screening: No symptoms or risk factors identified. Fall Risk Ambulatory Aid- None/Bed Rest/Nurse Assist (0 pts). Gait- Normal/Bed Rest/Wheelchair (0 pts) Mental Status- Oriented to own ability (0 pts). Total Short Fall Scale indicates No Risk (0-24 pts). Assessment: 12:57 General: Appears in no apparent distress. uncomfortable, Behavior is calm, cooperative, jd3 appropriate for age. Pain: Complains of pain in left eye and left jaw Quality of pain is described as sharp, shooting. Neuro: Level of Consciousness is awake, alert, obeys commands, Oriented to person, place, time, situation. Cardiovascular: Denies chest pain, Capillary refill < 3 seconds Patient's skin is warm and dry. Respiratory: Airway is patent Respiratory effort is even, unlabored, Respiratory pattern is regular, symmetrical, Denies cough, shortness of breath. GI: No signs and/or symptoms were reported involving the gastrointestinal system. : No signs and/or symptoms were reported regarding the genitourinary system. EENT: Oral mucosa is moist. Poor dentition noted. Dental caries noted in upper left first molar (#14). Derm: Skin is intact, Skin is dry, Skin is normal, Skin temperature is warm. Musculoskeletal: Circulation, motion, and sensation intact. Range of motion: intact in all extremities. 13:35 Reassessment: Patient appears in no apparent distress at this time. Patient and/or jd3 family updated on plan of care and expected duration. Pain level reassessed. Patient is alert, oriented x 3, equal unlabored respirations, skin warm/dry/pink. Vital Signs: 12:19 BP 176 / 99; Pulse 74; Resp 16 S; Temp 97.4(TE); Pulse Ox 100% on R/A; Weight 113.4 kg ca1 (R); Height 6 ft. 3 in. (190.50 cm) (R); Pain 10/10; 12:19 Body Mass Index 31.25 (113.40 kg, 190.50 cm) ca1 ED Course: 12:10 Patient arrived in ED. ag5 12:19 Ewelina Louis FNP-C [facility] snw 12:19 Arm band placed on right wrist. ca1 12:20 Manuel oJrdan MD is Attending Physician. snw 12:22 Triage completed. ca1 12:[address], RN is Primary Nurse. jd3 13:00 Patient has correct armband on for positive identification. Bed in low position. Call jd3 light in reach. Side rails up X 1. Pulse ox on. NIBP on. 13:35 No provider procedures requiring assistance completed. Patient did not have IV access jd3 during this emergency room visit. Administered Medications: 13:16 Drug: Aspirin 650 mg Route: PO; jd3 13:35 Follow up: Response: No adverse reaction jd3 13:16 Drug: Demerol 50 mg Route: IM; Site: left deltoid; jd3 13:36 Follow up: Response: No adverse reaction jd3 13:16 Drug: Phenergan 25 mg Route: IM; Site: left deltoid; jd3 13:36 Follow up: Response: No adverse reaction jd3 13:16 Drug: Clindamycin 300 mg Route: PO; jd3 13:36 Follow up: Response: No adverse reaction jd3 Outcome: 13:13 Discharge ordered by . snw 13:35 Discharged to home ambulatory, with family. jd3 13:35 Condition: stable 13:35 Discharge instructions given to patient, Instructed on discharge instructions, follow up and referral plans. medication usage, Demonstrated understanding of instructions, follow-up care, medications, Prescriptions given X 2. 13:36 Patient left the ED. jd3 Signatures: Ewelina Louis, DRIVER LICENSE EXAMINER-C DRIVER LICENSE EXAMINER-Csnw Teodoro Lane RN DELORES jIdalia Perea RN RN ca1 Robles, Taz ag5 Corrections: (The following items were deleted from the chart) 12:23 12:19 Acuity: KASHIF 5 ca1 ca1 12:23 12:19 BP 176 / 103; Pulse 74bpm; Resp 16bpm; Spontaneous; Pulse Ox 100% RA; Temp 97.4F ca1 Temporal; 113.4 kg Reported; Height 6 ft. 3 in. Reported; BMI: 31.2; Pain 10/10; ca1
--- NOTE | 2020-08-05 13:13 | EDPHYS ---
Physician Documentation [facility] Name: Corrie Diaz Age: 40 yrs Sex: Male : 1980 Arrival Date: 08/05/2020 Time: 12:10 Bed 23 Private MD: ED Physician Manuel Jordan HPI: 08/05 13:09 This 40 yrs old Black Male presents to ER via Ambulatory with complaints of Toothache, snw Headache. 13:09 The patient presents with pain. The problem is located in the upper left second molar snw (#15) and upper left first molar (#14). Onset: The symptoms/episode began/occurred suddenly, last night. Duration: The symptoms are continuous, and are steadily getting worse. Associated signs and symptoms: Pertinent positives: pain up left cheek and headache. Severity of symptoms: At their worst the symptoms were moderate, severe. The patient has not experienced similar symptoms in the past. It is unknown whether or not the patient has recently seen a physician. Historical: - Allergies: 12:23 No Known Allergies; ca1 - Home Meds: 12:23 carvedilol Oral 2 times per day [Active]; lisinopril 20mg - out of medicine daily ca1 [Active]; Nifedipine Oral [Active]; Metformin Oral [Active]; - PMHx: 12:23 CVA; Diabetes - NIDDM; Hypertension; ca1 - PSHx: 12:23 None; ca1 - Immunization history:: Adult Immunizations up to date, Flu vaccine is not up to date. - Social history:: Smoking status: Patient reports the use of cigarette tobacco products, denies chronic smoking, but will smoke occasionally. ROS: 13:08 Constitutional: Negative for fever, chills, and weight loss, Eyes: Negative for injury, snw pain, redness, and discharge, Neck: Negative for injury, pain, and swelling, Cardiovascular: Negative for chest pain, palpitations, and edema, Respiratory: Negative for shortness of breath, cough, wheezing, and pleuritic chest pain, Abdomen/GI: Negative for abdominal pain, nausea, vomiting, diarrhea, and constipation, Back: Negative for injury and pain, : Negative for injury, bleeding, discharge, and swelling, MS/Extremity: Negative for injury and deformity, Skin: Negative for injury, rash, and discoloration, Neuro: Negative for headache, weakness, numbness, tingling, and seizure, Psych: Negative for depression, anxiety, suicide ideation, homicidal ideation, and hallucinations. 13:08 ENT: Positive for dental pain, sinus pain. Exam: 13:05 Constitutional: This is a well developed, well nourished patient who is awake, alert, snw and in no acute distress. Head/Face: Normocephalic, atraumatic. Eyes: Pupils equal round and reactive to light, extra-ocular motions intact. Lids and lashes normal. Conjunctiva and sclera are non-icteric and not injected. Cornea within normal limits. Periorbital areas with no swelling, redness, or edema. Neck: Trachea midline, no thyromegaly or masses palpated, and no cervical lymphadenopathy. Supple, full range of motion without nuchal rigidity, or vertebral point tenderness. No Meningismus. Chest/axilla: Normal chest wall appearance and motion. Nontender with no deformity. No lesions are appreciated. Cardiovascular: Regular rate and rhythm with a normal S1 and S2. No gallops, murmurs, or rubs. Normal PMI, no JVD. No pulse deficits. Respiratory: Lungs have equal breath sounds bilaterally, clear to auscultation and percussion. No rales, rhonchi or wheezes noted. No increased work of breathing, no retractions or nasal flaring. Abdomen/GI: Soft, non-tender, with normal bowel sounds. No distension or tympany. No guarding or rebound. No evidence of tenderness throughout. Back: No spinal tenderness. No costovertebral tenderness. Full range of motion. Skin: Warm, dry with normal turgor. Normal color with no rashes, no lesions, and no evidence of cellulitis. MS/ Extremity: Pulses equal, no cyanosis. Neurovascular intact. Full, normal range of motion. Neuro: Awake and alert, GCS 15, oriented to person, place, time, and situation. Cranial nerves II-XII grossly intact. Motor strength 5/5 in all extremities. Sensory grossly intact. Cerebellar exam normal. Normal gait. Psych: Awake, alert, with orientation to person, place and time. Behavior, mood, and affect are within normal limits. 13:05 ENT: Dental exam: dental caries, that is mild, specifically in the upper left first molar (#14) and upper left second molar (#15). Vital Signs: 12:19 BP 176 / 99; Pulse 74; Resp 16 S; Temp 97.4(TE); Pulse Ox 100% on R/A; Weight 113.4 kg ca1 (R); Height 6 ft. 3 in. (190.50 cm) (R); Pain 10/10; 12:19 Body Mass Index 31.25 (113.40 kg, 190.50 cm) ca1 MDM: 13:00 Patient medically screened. snw 13:13 Data reviewed: vital signs, nurses notes. Data interpreted: Pulse oximetry: on room air snw is 100 %. Interpretation: normal. Counseling: I had a detailed discussion with the patient and/or guardian regarding: the historical points, exam findings, and any diagnostic results supporting the discharge/admit diagnosis, the need for outpatient follow up, to return to the emergency department if symptoms worsen or persist or if there are any questions or concerns that arise at home. Special discussion: I have referred the patient to see his PCP for further evaluation of high blood pressure. Based on the history and exam findings, there is no indication for further emergent testing or inpatient evaluation. I discussed with the patient/guardian the need to see a dentist for further evaluation of the symptoms. I discussed with the patient/guardian the need to see the primary care provider for further evaluation of the symptoms. Administered Medications: 13:16 Drug: Aspirin 650 mg Route: PO; jd3 13:35 Follow up: Response: No adverse reaction jd3 13:16 Drug: Demerol 50 mg Route: IM; Site: left deltoid; jd3 13:36 Follow up: Response: No adverse reaction jd3 13:16 Drug: Phenergan 25 mg Route: IM; Site: left deltoid; jd3 13:36 Follow up: Response: No adverse reaction jd3 13:16 Drug: Clindamycin 300 mg Route: PO; jd3 13:36 Follow up: Response: No adverse reaction jd3 Disposition: 14:47 Co-signature as Attending Physician, Manuel Jordan MD I agree with the assessment and kdr plan of care. Disposition: 08/05/20 13:13 Discharged to Home. Impression: Dental caries. - Condition is Stable. - Discharge Instructions: Dental Caries, Adult, Dental Pain, Diet and Dental Disease, Preventive Dental Care, Adult. - Prescriptions for Clindamycin HCl 300 mg Oral Capsule - take 1 capsule by ORAL route every 6 hours for 10 days; 40 capsule. Ultram 50 mg Oral Tablet - take 1 tablet by ORAL route every 6 hours As needed; 12 tablet. - Medication Reconciliation Form, Thank You Letter, Antibiotic Education, Prescription Opioid Use form. - Follow up: Emergency Department; When: As needed; Reason: Worsening of condition. Follow up: Private Physician; When: 1 - 2 days; Reason: Recheck today's complaints, Continuance of care. Signatures: Manuel Jordan MD MD kdr Waters, Shelly, PUMP TESTER-C PUMP TESTER-Teodoro Miller RN RN jd3 Idalia Handley RN RN ca1 Corrections: (The following items were deleted from the chart) 13:36 13:13 08/05/2020 13:13 Discharged to Home. Impression: Dental caries. Condition is jd3 Stable. Forms are Medication Reconciliation Form, Thank You Letter, Antibiotic Education, Prescription Opioid Use. Follow up: Emergency Department; When: As needed; Reason: Worsening of condition. Follow up: Private Physician; When: 1 - 2 days; Reason: Recheck today's complaints, Continuance of care. snw
[2020-08-05] MEDS ORDERED: MEPERIDINE HCL 50 MG/ML ONE (13:21)
[2020-08-05] MEDS ORDERED: PROMETHAZINE INJ 25 MG/ML AMP ONE (13:21)
[2020-08-05] MEDS ORDERED: ASPIRIN EC 325 MG TABLET PO ONE (13:22)
[2020-08-05 14:29] VITALS: BP 176/99; TEMP 97.4; O2SAT 100
== END 2020-08-05 13:36 | disposition home or self-care (01) ==
LOC: ER 12:08
DX: K02.9 Dental caries, unspecified (principal); I10 Essential (primary) hypertension; E11.9 Type 2 diabetes mellitus without complications; F17.210 Nicotine dependence, cigarettes, uncomplicated; Z86.73 Personal history of transient ischemic attack (TIA), and cerebral infarction without residual deficits
CPT/HCPCS: 96372; 99283; J2175; J2550